=== PATIENT | male | born 1935 | race Caucasian/White ===

== ENCOUNTER 2018-02-11 09:33 | Outpatient (CLI) | payer MEDICARE, OTHER ==
[2018-02-11] MEDS ORDERED: Gadobenate Dimeglumine 529 MG/1 ML (20ML VIAL) ONE (16:14)
== END 2018-02-11 09:34 | disposition home or self-care (01) ==
LOC: BICMRI 09:33
PROVIDERS: ATTEND Psychiatry & Neurology Neurology
DX: G31.1 Senile degeneration of brain, not elsewhere classified (principal)
CPT/HCPCS: 70553; A9579

== ENCOUNTER 2018-05-15 14:34 | Outpatient (CLI) | payer MEDICARE, OTHER | END 2018-05-15 14:35 | disposition home or self-care (01) | LOC: BICRAD 14:34 | PROVIDERS: ATTEND Podiatrist | DX: R22.9 Localized swelling, mass and lump, unspecified (principal); M19.072 Primary osteoarthritis, left ankle and foot ==

== ENCOUNTER 2018-10-08 22:41 | Emergency (ER) | payer MEDICARE, OTHER ==
[2018-10-08] MEDS ORDERED: Bacitracin Zinc 1 Packet ONE (23:53)
== END 2018-10-09 00:49 ==
LOC: ERS 22:41
DX: L97.529 Non-pressure chronic ulcer of other part of left foot with unspecified severity (principal); F03.90 Unspecified dementia, unspecified severity, without behavioral disturbance, psychotic disturbance, mood disturbance, and anxiety; I10 Essential (primary) hypertension; I48.91 Unspecified atrial fibrillation; E78.5 Hyperlipidemia, unspecified; Z79.899 Other long term (current) drug therapy; Z79.01 Long term (current) use of anticoagulants
CPT/HCPCS: 99284

== ENCOUNTER 2018-10-15 15:07 | Inpatient (IN) | payer MEDICARE, OTHER ==
[2018-10-15] MEDS ORDERED: Sodium Chloride 0.9% 100 ML ONE (15:23)
[2018-10-15] MEDS ORDERED: Piperacillin/Tazobactam 4.5 GM VIAL ONE (15:23)
[2018-10-15 15:37] LABS: Hemoglobin 12.8 g/dL (14.0-18.0); Mean Corpuscular HGB CONC 32.2 g/dL (32.0-36.0); Mean Corpuscular Hemoglobin 30.2 pg (27.0-31.0); Mean Corpuscular Volume 93.7 fL (78.0-98.0); Mean Platelet Volume 8.8 fL (7.4-10.4); Platelet Count 176 thou/uL (130-400); RBC Distribution Width 14.4 % (11.5-14.5); Red Blood Cell (RBC) Count 4.24 mill/uL (4.70-6.10); White Blood Cell (WBC) Count 18.4 thou/uL (4.8-10.8)
[2018-10-15 15:38] LABS: INR-International Normal Ratio 3.6
[2018-10-15 15:39] LABS: PTT 51.1 SEC (22.9-36.1)
--- NOTE | 2018-10-15 15:51 | RAD ---
CHEST ONE VIEW: History: Chest pain Comparison: 2012 FINDINGS: Lungs are hypoinflated. There appears to be some peripheral scarring and increased reticular markings in the lung bases. There is scarring in both lung apices. Heart size is mildly enlarged. Chronic elevation of the left hemidiaphragm. IMPRESSION: Chronic findings. Findings concerning for a possible underlying pulmonary fibrosis. POS: [facility]
[2018-10-15 15:52] LABS: ALT (SGPT) 11 U/L (8-55); AST (SGOT) 15 U/L (5-34); Albumin 3.2 g/dL (3.4-4.8); Alkaline Phosphatase 69 U/L (40-150); Anion Gap 18 mmol/L (10-20); BUN (Urea Nitrogen) 27 mg/dL (8.4-25.7); Bilirubin, Total 0.9 mg/dL (0.2-1.2); CK (CPK) 164 U/L (30-200); Calc. Creatinine Clearance 0 mL/min (70-130); Calcium 7.9 mg/dL (7.8-10.44); Carbon Dioxide 22 mmol/L (23-31); Chloride 98 mmol/L (98-107); Estimated GFR-MDRD 47; Globulin 3.3 g/dL (2.4-3.5); Glucose 136 mg/dL (83-110); Lipase 8 U/L (8-78); Potassium 3.9 mmol/L (3.5-5.1); Protein, Total 6.5 g/dL (5.8-8.1); Sodium 134 mmol/L (136-145)
[2018-10-15 15:57] LABS: Bilirubin Negative (Negative); Blood, Urine Trace (Negative); Clarity CLEAR (Clear); Glucose, Urine (Dipstick) Negative (Negative); Leukocyte Negative (Negative); Nitrite Negative (Negative); Protein, Urine (Dipstick) 30 mg/dL (Neg-Trace); Specific Gravity, Urine 1.016 (1.002-1.036); Urobilinogen 0.2 mg/dL (0.2-1.0)
[2018-10-15 15:58] LABS: Band 8 % (5-11); Lymphocytes 1 % (21-51); MDiff Complete? YES; Monocytes 8 % (0-10); Neutrophil 83 % (42-75); PLT Morphology Comment Appears Adequate; Polychromasia SLIGHT = 2-3 cells (100X) (0-2/hpf)
[2018-10-15 16:00] LABS: Bacteria/HPF None Seen HPF (None Seen); Hyaline Casts/LPF 4-6 HYALINE CAST LPF (0-3 Hyaline); Pathc Cast-AUWi Flag 0.58 (0-2.49); Squamous Epithelial 0-3 HPF (0-3); WBC/HPF 0-3 HPF (0-3)
[2018-10-15 16:08] LABS: Amphetamine Not Detected (NotDetected); Barbiturates Screen Not Detected (NotDetected); Benzodiazepine Screen Detected (NotDetected); Cocaine Metabolite Screen Not Detected (NotDetected); Medtox Control Line Valid? VALID (VALID); Medtox Reader # READER 1; Methadone Not Detected (NotDetected); Methamphetamine Not Detected (NotDetected); Opiate Screen Not Detected (NotDetected); Oxycodone Screen Not Detected (NotDetected); Phencyclidine (PCP) Not Detected (NotDetected); THC/Cannabinoid Screen Not Detected (NotDetected); Tricyclic Screen Not Detected (NotDetected)
[2018-10-15 16:08] LABS: Acetaminophen Less than 6.0 mcg/mL (10.0-30.0); Alcohol Less than 10 mg/dL (Less than 10); Salicylate Less than 8.0 mg/dL (15.0-30.0)
--- NOTE | 2018-10-15 17:01 | CT ---
CT HEAD NONCONTRAST: 10/15/2018 HISTORY: Trauma. The patient fell today at the halfway. Injury after fall. COMPARISON: MRI brain on 02/11/2018. FINDINGS: There is a small low density focus in the posterior limb, left internal capsule, also seen on prior M RI, likely related to a tiny remote lacunar infarction. There is no evidence of an acute cortical in farction, hemorrhage, mass effect, or midline shift. There is mild cerebral volume loss. The ventri cular system is normal in size, shape, and position for the degree of sulcal atrophy. There are mucu s retention cysts in the floor of each maxillary antrum. Mucosal thickening is seen in the ethmoid a ir cells bilaterally. The mastoid air cells are clear. There is evidence of scleral banding involvi ng the left globe. No calvarial fracture is seen. IMPRESSION: No acute intracranial abnormality is demonstrated. POS: [facility]
--- NOTE | 2018-10-15 17:03 | ULT ---
LEFT LOWER EXTREMITY VENOUS DUPLEX ULTRASOUND INCLUDING COLOR AND SPECTRAL DOPPLER IMAGING: HISTORY: An 83-year-old male with a history of left leg erythema and redness. TECHNIQUE: Exam performed from groin to ankle, including the visualized greater saphenous vein, common femoral v ein, superficial femoral vein, profunda femoral vein, popliteal vein, trifurcation vein, and posterio r tibial vein regions. FINDINGS: There is phasic flow at all levels with normal compressibility and normal augmentation. The wave-for m is somewhat exaggerated, which is a nonspecific finding but can be seen in fluid overload and heart failure, among other things. IMPRESSION: No evidence for deep venous thrombosis. POS: [facility]
--- NOTE | 2018-10-15 17:04 | RAD ---
LEFT FOOT 3 VIEWS: Date: 10/15/18 HISTORY: Erythema. Foot wound. COMPARISON: Radiograph dated 05/15/18. FINDINGS: There is a large plantar ulcer. This is either a wound or a linear radiopaque object extending from t he mid foot to the skin surface which could be a bandage. Extensive swelling throughout the forefoot. There is mid foot collapse. 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 There is an erosion of the lateral margin of the distal phalanx of the small toe. IMPRESSION: 1. Extrinsic erosion of the distal phalanx of the small toe. This may reflect an underlying mass. MR I with and without contrast recommended. 2. 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 3. Large plantar midfoot wound with faint linear radiopacity projecting from the skin surface to the mid foot bone. This may reflect a radiopaque foreign object versus a bandage. Given the amount of so ft tissue swelling throughout the mid foot and forefoot, underlying cellulitis and possibly deep oste omyelitis is definitely a possibility. MRI recommended. POS: [facility]
--- NOTE | 2018-10-15 17:10 | CT ---
CT CERVICAL SPINE NONCONTRAST: 10/15/2018 HISTORY: Injury after trauma. The patient fell. TECHNIQUE: Contiguous axial CT images are obtained through the cervical spine, from the skull base to the level of the T3 vertebral body. Sagittal and coronal reformatted images are provided. FINDINGS: Multilevel degenerative changes are seen with prominent facet hypertrophic changes at multiple levels . There is moderate bilateral neural foraminal narrowing at the C3-C4 level, as well as moderate lef t-sided neural foraminal narrowing at the C4-C5 level. There is mild bone encroachment on the centra l spinal canal, at the C4-C5 level. No fracture or subluxation is seen. There is mild narrowing of the intervertebral disk space at all levels of the cervical spine. Calcification of the anterior longitudinal ligament is seen at multipl e levels. Prevertebral soft tissues are within normal limits. Vascular calcifications are seen in the carotid arteries, as well as in the visualized aortic arch. The thyroid gland is slightly heterogeneous in appearance, but there is artifact seen through this re gion. A tiny nodule in the inferior left lobe of the thyroid gland cannot be entirely excluded, but no discrete nodule is present on the CT of the neck from 06/28/2017, which was obtained post contrast . There is atelectasis in the upper lung zones. IMPRESSION: 1. Degenerative changes of the cervical spine without fracture or subluxation appreciated. 2. Heterogeneity of each lobe of the thyroid gland with a questionable small nodule in the inferior pole left lobe of the thyroid gland. 3. Ground glass densities in the upper lung zones, but this exam was obtained in expiratory phase of imaging, and findings are probably related to atelectasis. 4. Gas within vein in a supraclavicular location, which is probably attributable to placement of a p eripheral intravenous catheter. POS: [facility]
[2018-10-15] MEDS ORDERED: VANCOMYCIN/ RENALLY ADJUST ANTIBIOTICS IVPB PRN (18:11)
[2018-10-15] MEDS ORDERED: Acetaminophen 650 MG Suppository PR PRN (18:12)
[2018-10-15] MEDS ORDERED: Acetaminophen 325 MG TAB PO PRN (18:12)
[2018-10-15] MEDS ORDERED: Senokot S 8.6-50 MG TAB PO PRN (18:12)
[2018-10-15] MEDS ORDERED: Norepinephrine 8 MG/0.9% NS 250 ML IVPB PRN (19:51)
[2018-10-15] MEDS ORDERED: CCU Electrolyte Replacement 1 EACH IVPB SCH (19:51)
--- NOTE | 2018-10-15 20:14 | HP ---
PRIMARY CARE PROVIDER: Dr. Palmer Montanez. VACUUM FORM OPERATOR: Dr. Quintero. CHIEF COMPLAINT: Fall. HISTORY OF PRESENT ILLNESS: Mr. Peterson is a pleasant 83-year-old gentleman, who was seen at [facility] on October 15, 2018. He has a history of chronic ulcer on the plantar aspect of the left foot. He reports that it improves at times and worsens at other times. Two weeks ago, he had a procedure done on his veins on the left lower extremity. One week ago, he was sent to the emergency room because the visiting nurse thought that his foot did not appear to be normal. He was discharged from the emergency room. Since then, it appears that he has had progressively worsening edema of the left foot. He also reports that it has become erythematous. He denies any pain. He also reports numbness in the left foot. He was found to be febrile last night. Today morning, he reports feeling dizzy when he woke up. He reports falling twice. He reports head trauma. He denies any nausea, vomiting, diarrhea, or abdominal pain. He denies any chest pain. REVIEW OF SYSTEMS: All other systems reviewed and found to be negative. PAST MEDICAL HISTORY: Essential hypertension, dyslipidemia, bradycardia, incontinence, atrial fibrillation, peripheral neuropathy, and dementia. SURGICAL HISTORY: Appendectomy and right foot surgery. SOCIAL HISTORY: The patient denies tobacco use, alcohol use, or recreational drug use. He lives at [facility]. He ambulates with a walker. CODE STATUS: I discussed his code status. He is chemical code only. FAMILY HISTORY: Myocardial infarction in his mother. ALLERGIES: NO KNOWN DRUG ALLERGIES. CURRENT MEDICATIONS: 1. Amiodarone 200 mg daily. 2. Benazepril 40 mg daily. 3. Pantoprazole 40 mg daily. 4. Tamsulosin 0.4 mg daily. 5. Torsemide 10 mg daily. 6. Rivaroxaban 20 mg daily. 7. Vitamin D3 1000 units daily. 8. Vitamin C 500 mg daily. PHYSICAL EXAMINATION: GENERAL: Mr. Peterson is awake and alert, not in acute distress. VITAL SIGNS: Blood pressure is 98/65, pulse 83, respiratory rate 21, and oxygen saturation 94% on room air. He had a pulse of 120 when he presented to the emergency room. EYES: No scleral icterus. No conjunctival pallor. ENT: Moist mucosal membranes. No oropharyngeal erythema or exudates. NECK: Supple, nontender, trachea is midline. RESPIRATORY: Accessory muscles of breathing are not active. Chest wall movements are symmetric bilaterally. LUNGS: Clear to auscultation, without wheeze, rhonchi, or crepitations. CARDIOVASCULAR: S1 and S2 are heard, regular. Peripheral pulses palpable. No carotid bruit. No pericardial rub. ABDOMEN: Soft, nontender, bowel sounds heard. No hepatomegaly. No splenomegaly. NEUROLOGIC: Cranial nerves 2 through 12 intact. MUSCULOSKELETAL: Power is 5/5 in all four extremities. SKIN: Left foot is swollen, erythematous, and nontender. He has ulcer over the plantar aspect of the left foot. LYMPHATIC: No cervical lymphadenopathy. PSYCHIATRIC: Normal mood. Normal affect. The patient is oriented to person and place, not to time. DIAGNOSTIC STUDIES: Mr. Peterson's labs and investigations were reviewed. I reviewed his chest x-ray, which does not show any pulmonary infiltrates. Cervical spine CT shows degenerative changes of the cervical spine without fracture or subluxation. He has heterogeneity of each lobe of the thyroid gland with a questionable small nodule in the inferior left pole of the thyroid gland. He has ground glass densities in the upper lung zones. He has gas within the vascular structures in the supraclavicular location, which is probably attributable to placement of a peripheral intravenous catheter. X-rays of the left foot show extrinsic erosion of the distal phalanx of the small toe. This may reflect an underlying mass. Radiologist recommends MRI with and without contrast. He has severe midfoot collapse and osteonecrosis of the lateral navicular. He has large plantar midfoot wound with faint linear radiopacity projecting from the skin surface to the midfoot bone. This may reflect a radiopaque foreign object versus bandage. Underlying cellulitis and possibly deep osteomyelitis are a possibility. Radiologist recommends MRI. Left lower extremity venous Dopplers did not show any evidence for DVT. I also reviewed his EKG, which shows atrial fibrillation with rapid ventricular response. No ST changes to suggest an acute coronary syndrome. He also has an electrocardiogram, which showed supraventricular tachycardia. He has leukocytosis with 18,400 white cells, of which 83% are neutrophils, normocytic anemia with hemoglobin 12.8, normal platelet count. INR 3.6. Decreased sodium of 134, normal potassium, elevated blood urea nitrogen of 27, elevated creatinine of 1.42, last known creatinine 1.22 on April 07, 2018, elevated lactic acid level of 4, decreased albumin of 3.2, otherwise unremarkable liver profile, indeterminate troponin I of 0.040, urinalysis that is negative for nitrite and leukocyte esterase, and urine drug screen positive for benzodiazepines. ASSESSMENT AND PLAN: Mr. Peterson is a pleasant 83-year-old gentleman who was seen at [facility] on October 15, 2018. His problem list includes: 1. Sepsis: Mr. Peterson is presenting with sepsis, most likely source of infection in the left foot. He will be admitted to the hospital for further management. He has received vancomycin and Zosyn, which I will continue. We will consult Infectious Disease Service. Given his decreased renal function, we will obtain MRI when creatinine improves. 2. Supraventricular tachycardia: Mr. Peterson has been having runs of supraventricular tachycardia. Cardiology Service was called by emergency room physician and discussed the case. He has episodes of hypotension following runs of supraventricular tachycardia. If hypotension continues, he may need central line and vasopressors in the critical care unit. Cardiology Service will be consulted. 3. Hypertension: The patient is currently hypotensive. We will hold antihypertensives for now. 4. Atrial fibrillation: We will continue rivaroxaban. Many thanks for allowing me to participate in your patient's care. Please feel free to contact me with any questions or concerns. LEVEL OF RISK: High. LEVEL OF COMPLEXITY: High. Job ID: [id number]
[2018-10-15] MEDS ORDERED: Potassium Chloride 40 MEQ in Sodium Chloride 0.9% 250 ML 250 ML IVPB PRN (20:18)
[2018-10-15] MEDS ORDERED: CCU ELECTROLYTE REPLACEMENT PROTOCOL FS PRN (20:18)
[2018-10-15] MEDS ORDERED: Potassium Chloride 40 MEQ in Premix Bag 1 BAG IVPB PRN (20:18)
[2018-10-15] MEDS ORDERED: Potassium Chloride 20 MEQ TAB PO PRN (20:18)
[2018-10-15] MEDS ORDERED: Potassium Phosphate 12 MMOL in Sodium Chloride 0.9% 250 ML 250 ML IV PRN (20:18)
[2018-10-15] MEDS ORDERED: Magnesium 2 GM/NS 0.9% 100 ML 2 GM in Premix Bag 1 BAG IVPB PRN (20:18)
[2018-10-15] MEDS ORDERED: Magnesium Oxide 400 MG TAB PO PRN ×2 (20:18)
[2018-10-15] MEDS ORDERED: Potassium Phosphate 15 MMOL in Sodium Chloride 0.9% 250 ML 250 ML IV PRN (20:18)
[2018-10-15] MEDS ORDERED: Potassium Phosphate 9 MMOL in Sodium Chloride 0.9% 100 ML IVPB PRN (20:18)
[2018-10-15 20:47] LABS: Lactic Acid 1.4 mmol/L (0.5-2.2)
[2018-10-15 21:14] LABS: CKMB 2.6 ng/mL (0-6.6)
--- NOTE | 2018-10-15 21:39 | RAD ---
PORTABLE CHEST: 10/15/18 PROVIDED CLINICAL HISTORY: Line placement. FINDINGS: Comparison is made with the examination performed earlier same date. Significant interval change with respect to the prior examination is not apparent. IMPRESSION: As above. POS: [facility]
[2018-10-15] MEDS: Sodium Chloride 0.9% 1,000 ML IV SCH (23:07)
[2018-10-16] MEDS: Piperacillin/Tazobactam 3.375 GM in Sodium Chloride 0.9% 100 ML IVPB SCH ×4 (00:15→17:43)
[2018-10-16] MEDS: Vancomycin HCl 750 MG in Sodium Chloride 0.9% 250 ML 250 ML IVPB SCH ×2 (04:36→15:45)
[2018-10-16 04:54] LABS: #Lymphocytes 0.6 thou/uL (1.20-3.40); #Neutrophils 13.9 thou/uL (1.40-6.50); %Eosinophils 0.2 % (0.0-10.0); %Lymphocytes 3.8 % (21.0-51.0); %Monocytes 6.3 % (0.0-10.0); %Neutrophils 89.7 % (42.0-75.0); Hemoglobin 11.2 g/dL (14.0-18.0); Mean Corpuscular HGB CONC 32.6 g/dL (32.0-36.0); Mean Corpuscular Hemoglobin 30.9 pg (27.0-31.0); Mean Corpuscular Volume 94.6 fL (78.0-98.0); Mean Platelet Volume 8.8 fL (7.4-10.4); Platelet Count 158 thou/uL (130-400); RBC Distribution Width 14.3 % (11.5-14.5); Red Blood Cell (RBC) Count 3.62 mill/uL (4.70-6.10); White Blood Cell (WBC) Count 15.4 thou/uL (4.8-10.8)
[2018-10-16 05:14] LABS: Anion Gap 14 mmol/L (10-20); BUN (Urea Nitrogen) 22 mg/dL (8.4-25.7); Calc. Creatinine Clearance 64 mL/min (70-130); Carbon Dioxide 24 mmol/L (23-31); Chloride 105 mmol/L (98-107); Estimated GFR-MDRD 66; Glucose 97 mg/dL (83-110); Potassium 3.6 mmol/L (3.5-5.1); Sodium 139 mmol/L (136-145)
[2018-10-16] MEDS ORDERED: Prevnar 13-Val Conj/PF 0.5 ML SYRINGE IM ONE (09:00)
[2018-10-16] MEDS: Sodium Chloride 0.9% 1,000 ML IV SCH ×2 (09:03→23:55)
[2018-10-16] MEDS: Amiodarone 200 MG TAB PO SCH (10:04)
[2018-10-16 13:02] LABS: INR-International Normal Ratio 2.4; Prothrombin Time 26.4 SEC (12.0-14.7)
--- NOTE | 2018-10-16 13:13 | CON ---
DATE OF CONSULTATION: 10/16/2018 TYPE OF CONSULTATION: Cardiology. REASON FOR CONSULTATION: Supraventricular tachycardia. HISTORY OF PRESENT ILLNESS: Mr. Dileep Peterson is a delightful 83-year-old gentleman, who has a long history of atrial arrhythmias. The patient has had atrial flutter in the past as well as paroxysmal atrial fibrillation. On this occasion, he was admitted for ulceration of the left foot and possible sepsis. It has been noted that it first become erythematous. He has been feeling lightheaded. REVIEW OF SYSTEMS: CONSTITUTIONAL: Positive for weakness and fatigue. VISION: No changes. HEARING: No changes. PULMONARY: No cough or wheezing. CARDIAC: No chest pain or pressure. GASTROINTESTINAL: No nausea, vomiting, diarrhea. SKIN: No rashes. PAST MEDICAL HISTORY: 1. Hypertension. 2. Atrial fibrillation. 3. Atrial flutter. SURGICAL HISTORY: Appendectomy and right foot surgery. SOCIAL HISTORY: Denies alcohol use. Lives at [facility]. CODE STATUS: Chemical code only. FAMILY HISTORY: Myocardial infarction in mother. MEDICATIONS: Prior to admission, 1. Amiodarone 200 mg a day. 2. Xarelto 20 mg. 3. Torsemide 10 mg a day. 4. Tamsulosin 0.4 mg a day. PHYSICAL EXAMINATION: GENERAL: This is a delightful elderly gentleman, in no distress. VITAL SIGNS: Blood pressure 103/60, pulse 75, it is regular currently. HEENT: Eyes, sclerae nonicteric. Mouth mucous membranes moist. NECK: Supple. No lymphadenopathy. LUNGS: Clear. No wheezing, rales, or rhonchi. CARDIAC: Normal S1, normal S2. There is no murmur, rub, or gallop. ABDOMEN: Obese, nontender. EXTREMITIES: No clubbing or cyanosis. Moderate edema on the right foot, warm on the right. On the left, there is a chronic ulceration with erythematous changes and I do not feel pulses on the left side. DIAGNOSTIC STUDIES: Reviewing the EKG, it did have what looked like atrial flutter initially, now it looks like it is probably a junctional rhythm or intermittent sinus rhythm with intermittent atrial fibrillation. ASSESSMENT: 1. Paroxysmal atrial arrhythmias including what appears to be atrial flutter. Electrophysiology was previously consulted. They recommended medical therapy. 2. It looks like vascular ischemic problems of the left foot resulting in ulceration. PLAN: 1. Surgery is being consulted. 2. Continue amiodarone. 3. We will actually hold Xarelto for now. No decision is made about whether he is going to need surgical therapy in his foot. Job ID: [id number]
--- NOTE | 2018-10-16 13:45 | PDOC.PN ---
- Subjective Encounter Start Date: 10/16/18 Encounter Start Time: 09:40 Pt seen for followup re: sepsis. Denies chest pain, shortness of breath, fevers or chills. - Objective Resuscitation Status - Order Detail: 10/15/18 18:12 Resuscitation Status Routine Resuscitation Status: PRTL: Chem only Discussed with: patient and [id number] MAR Reviewed: Yes Vital Signs & Weight: Vital Signs (12 hours) Temp Pulse Ox 10/16/18 12:00 97.6 F 10/16/18 07:54 99 10/16/18 07:00 97.9 F 10/16/18 04:00 97.9 F Weight Weight 194 lb 14.218 oz Most Recent Monitor Data Heart Rate from ECG 71 NIBP 137/69 NIBP BP-Mean 91 Respiration from ECG 28 SpO2 98 I&O: 10/15/18 10/16/18 10/17/18 06:59 06:59 06:59 Intake Total 634 240 Output Total 375 375 Balance 259 -135 Result Diagrams: 10/16/18 04:15 10/16/18 04:15 EKG Reviewed by me: Yes (Tele: NSR) Phys Exam - Physical Examination Constitutional: NAD HEENT: moist MMs, sclera anicteric, oral pharynx no lesions, 2+ tonsils Neck: no nodes, no JVD, supple, full ROM Respiratory: no wheezing, no rales, no rhonchi, clear to auscultation bilateral Cardiovascular: RRR, no rub S1, S2 Gastrointestinal: soft, non-tender, no distention, positive bowel sounds Neurological: moves all 4 limbs Psychiatric: normal affect, A&O x 3 Deviation from normal: L leg swelling, erythema, plantar ulcer Dx/Plan (1) Sepsis Code(s): A41.9 - SEPSIS, UNSPECIFIED ORGANISM Status: Acute Comment: continue IV antibiotics as below (2) Foot infection Code(s): L08.9 - LOCAL INFECTION OF THE SKIN AND SUBCUTANEOUS TISSUE, UNSP Status: Acute Comment: check MRI left foot, continue IV antibiotics (3) Atrial fibrillation Code(s): I48.91 - UNSPECIFIED ATRIAL FIBRILLATION Status: Chronic Comment: anticoagulation on hold - Plan * . Review of Systems - Review of Systems Constitutional: negative: fever, chills, sweats, weakness, malaise Respiratory: negative: Cough, Shortness of Breath, SOB with Excertion, Pleuritic Pain, Wheezing Cardiovascular: negative: chest pain, palpitations, orthopnea, paroxysmal nocturnal dyspnea, edema, light headedness Gastrointestinal: negative: Nausea, Vomiting, Abdominal Pain, Diarrhea, Constipation, Melena, Hematochezia Genitourinary: negative: Dysuria, Frequency, Incontinence, Hematuria, Retention Skin: negative: Rash, Lesions, Bay, Bruising - Medications/Allergies Allergies/Adverse Reactions: Allergies Allergy/AdvReac Type Severity Reaction Status Date / Time No Known Allergies Allergy Verified 12/23/14 12:28 Medications: Current Medications Acetaminophen (Tylenol) 650 mg PO Q4H PRN PRN Reason: Headache/Fever/Mild Pain (1-3) Acetaminophen (Tylenol) 650 mg NH Q4H PRN PRN Reason: Headache/Fever/Mild Pain (1-3) Amiodarone HCl (Cordarone) 200 mg PO DAILY [facility] Last Admin: 10/16/18 10:04 Dose: 200 mg Vancomycin HCl 750 mg/ Sodium (Chloride) 250 mls @ 250 mls/hr IVPB 0400,1600 [facility] Last Admin: 10/16/18 04:36 Dose: 250 mls Piperacillin Sod/Tazobactam (Sod 3.375 gm/ Sodium Chloride) 100 mls @ 200 mls/ hr IVPB Q6HR [facility] Last Admin: 10/16/18 12:29 Dose: 100 mls Sodium Chloride (Normal Saline 0.9%) 1,000 mls @ 70 mls/hr IV .[id number] [facility] Last Admin: 10/16/18 09:03 Dose: 1,000 mls Norepinephrine Bitartrate (Levophed) 250 mls @ 0 mls/hr IVPB PRN PRN; Protocol PRN Reason: To maintain MAP > 65 Potassium Chloride 40 meq/ (Sodium Chloride) 270 mls @ 135 mls/hr IVPB ASDIR PRN PRN Reason: FOR SERUM K+ 2.5 - 3.5 Potassium Chloride 40 meq/ (Device) 100 mls @ 50 mls/hr IVPB ASDIR PRN PRN Reason: FOR SERUM K+ 2.5 - 3.5 Magnesium Sulfate 1 gm/ Sodium (Chloride) 102 mls @ 102 mls/hr IV PRN PRN PRN Reason: MAG LEVEL 1.4 - 2.0 Magnesium Sulfate 2 gm/ Device 100 mls @ 100 mls/hr IVPB ASDIR PRN PRN Reason: MAGNESIUM < 1.4 Potassium Phosphate 9 mmol/ (Sodium Chloride) 103 mls @ 25.75 mls/hr IVPB ASDIR PRN PRN Reason: Phosphate 1.0-1.8 Potassium Phosphate 12 mmol/ (Sodium Chloride) 254 mls @ 63.5 mls/hr IV ASDIR PRN PRN Reason: Serum phosphate 0.5-0.9 Potassium Phosphate 15 mmol/ (Sodium Chloride) 255 mls @ 63.75 mls/hr IV ASDIR PRN PRN Reason: Serum Phos < 0.5 Magnesium Oxide (Magnesium Oxide) 400 mg PO BIDPRN PRN PRN Reason: FOR SERUM MAG 1.4 - 2.0 Magnesium Oxide (Magnesium Oxide) 800 mg PO PRN PRN PRN Reason: FOR SERUM MAG < 1.4 Miscellaneous Medication (Pharmacy To Dose) 1 each IVPB PRN PRN PRN Reason: Pharmacy to dose Miscellaneous Medication (Ccu Electrolyte Replacement) 1 each IVPB ONE [facility] Stop: 11/14/18 19:52 Miscellaneous Medication (Phos-Nak) 1 pkt PO TIDPRN PRN PRN Reason: FOR PHOS LEVEL 1.0 - 1.8 Miscellaneous Medication (Phos-Nak) 2 pkt PO TIDPRN PRN PRN Reason: FOR PHOS LEVEL 0.5 - 1.0 Ccu Electrolyte (Replacement Protocol) 0 each FS PRN PRN PRN Reason: FOR ELECTROLYTE REPLACEMENT Potassium Chloride (K-Dur) 40 meq PO ASDIR PRN PRN Reason: FOR SERUM K+ 2.5 - 3.5 Potassium Chloride (Klor-Con) 40 meq PER TUBE ASDIR PRN PRN Reason: FOR SERUM K+ 2.5-3.5 Senna/Docusate Sodium (Senokot S) 2 tab PO BID PRN PRN Reason: Constipation Sodium Chloride (Flush - Normal Saline) 10 ml IVF Q12HR [facility] Last Admin: 10/16/18 09:03 Dose: 10 ml Sodium Chloride (Flush - Normal Saline) 10 ml IVF PRN PRN PRN Reason: Saline Flush Last Admin: 10/16/18 09:03 Dose: 10 ml
--- NOTE | 2018-10-16 14:03 | MRI ---
MRI LEFT FOOT WITH AND WITHOUT CONTRAST: HISTORY: Pain. Swelling. Evaluate for osteomyelitis. COMPARISON: Foot radiographs from the prior day. FINDINGS: On the T1 imaging weighted sequence, there is some subcortical and medullary signal loss of the fifth toe metatarsal base, as well as the lateral cuneiform. There are severe mid foot degenerative stroud es with mid foot collapse. SOFT TISSUES: There is a large mid foot plantar wound with a peripherally enhancing collection abutt ing the lateral cuneiform, as well as the fifth metatarsal base. This collection does extend deep to the plantar fascia and superficial to the fascia. This collection measures 6.6 x 1.3 x 3 cm (trans x AP x CC). There is severe muscle atrophy. There is some pyomyositis of the abductor digiti minimi muscle. IMPRESSION: 1. Osteomyelitis of the fifth metatarsal base, as well as of the lateral cuneiform. 2. Large plantar midfoot ulcer with peripherally enhancing abscess, extending superficial and deep t o the plantar fascia, abutting the lateral cuneiform and fifth metatarsal base. Size as above. 3. Pyomyositis of the abductor digiti minimi muscle. 4. Severe mid foot degenerative changes, suggesting chronic diabetic Charcot neuropathy. POS: [facility]
--- NOTE | 2018-10-16 16:04 | HP ---
HISTORY OF PRESENT ILLNESS: Dileep Peterson is an 83-year-old male patient, admitted to the hospital yesterday. This patient has been admitted to the Hospitalist Service. He is a resident of [facility] and ambulates with a walker with assistance. He has had problems with neuropathy, although not a diabetic. He has been seen by someone regarding some right foot problems. He has had venous interventions procedure done on his left leg in the last week. The patient was admitted this hospitalization after presenting in the emergency room. He is on Xarelto, last dose on 10/15/2018. As stated above, he is on Xarelto. Yesterday, his PT was 36. Today, 26. Yesterday, his INR was 3.6. Today, 2.4. Dr. Mishra asked me to see him, concerned about the patient's foot. 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 He underwent subsequent MRI scan, revealing osteomyelitis of the fifth metatarsal base as well as the lateral cuneiform, lateral plantar midfoot ulcer with peripherally enhancing abscess, extending deep to the plantar fascia involving the lateral cuneiform and fifth metatarsal plantar fasciitis, abductor digiti minimi, severe midfoot degenerative changes consistent with Charcot foot. The patient has severe edema, cellulitis, extending up to his lower ankle. There is a large abscess in the plantar foot with necrotic tissue, purulent material. ALLERGIES: NONE. SOCIAL HISTORY: Tobacco, none. Alcohol, none. MEDICATIONS: On vancomycin and Zosyn as an inpatient. Outpatient, Flomax 0.4 mg a day, vitamin D3 daily, amiodarone 200 mg a day, benazepril 40 mg in the morning, vitamin C daily, Protonix 40 mg a day, torsemide 10 mg a day, Xarelto 20 mg a day, Cipro 250 mg p.o. t.i.d. prior to admission. PAST SURGICAL HISTORY: Appendectomy, right foot surgery, and venous interventions procedure recently a week ago. PAST MEDICAL HISTORY: Hypertension, dyslipidemia, bradycardia, incontinence; atrial fibrillation, on Xarelto; peripheral neuropathy, mild dementia. SPINNING SUPERVISOR: Dr. Quintero, who saw him today. PHYSICAL EXAMINATION: VITAL SIGNS: Height 6 feet tall, weight 194 pounds, BMI 26. Blood pressure 137/89, respiratory rate 23, and heart rate 71. HEAD, EARS, EYES, NOSE, AND THROAT: Unremarkable. LUNGS: Clear to auscultation. CARDIAC: Regular rhythm. ABDOMEN: Soft and nontender. Palpable femoral popliteal pulses. EXTREMITIES: The patient has severe edema, cellulitis of the left foot extending to the ankle. There is necrotic tissue with a purulent process, plantar foot extending from medial to lateral. This is extensive and extends deep on probing with a Q-tip and extends to the metatarsals. ASSESSMENT AND PLAN: 1. Severe infection, right foot in a nondiabetic. He has history of neuropathy and Charcot foot, evident by x-rays and MRI. I have talked to the family, would recommend emergent guillotine amputation above the ankle. This foot is not salvageable. He will need formal below-knee amputation next week. Risks and benefits of the procedure were explained, they consented. 2. On Xarelto, held since yesterday. Ideally, we would like to wait until surgery tomorrow, but his aggressive infection presents as a prohibitive risk. 3. History of atrial fibrillation/atrial flutter. 4. Dementia. 5. Arthritis. Job ID: [id number]
[2018-10-16] MEDS ORDERED: Dexamethasone 20 MG/5 ML VIAL ONE (16:54)
[2018-10-16] MEDS ORDERED: Ondansetron PF 4 MG/2 ML Vial ONE (16:54)
[2018-10-16] MEDS ORDERED: PROPOFOL 200 MG/20 ML VIAL ONE (16:54)
[2018-10-16] MEDS ORDERED: Fentanyl 100 MCG/2 ML VIAL ONE (20:38)
[2018-10-16] MEDS ORDERED: traMADol HCl 50 MG TAB PO PRN (20:44)
[2018-10-16] MEDS ORDERED: Acetaminophen 500 MG TAB PO PRN (20:44)
[2018-10-16] MEDS ORDERED: Ondansetron HCl/PF 4 MG/2 ML Vial IVP PRN (21:15)
[2018-10-16] MEDS ORDERED: Promethazine HCl 25 MG/ML VIAL IM PRN (21:15)
[2018-10-16] MEDS ORDERED: Promethazine HCl 25 MG/ML VIAL SLOW IVP PRN (21:15)
--- NOTE | 2018-10-17 00:17 | CON ---
DATE OF CONSULTATION: 10/16/2018 REASON FOR CONSULTATION: Foot inflammatory process, left side. HISTORY OF PRESENT ILLNESS: An 83-year-old patient, history of hypertension, atrial fibrillation, and dementia, who has chronic lymphedema, also has neuropathy left side with Charcot arthropathy, left ankle. The patient apparently underwent laser vein ablation recently at least that is what he remembers, but most likely this current process is unrelated to that. He has developed this area of inflammatory change with necrosis of the mid foot plantar aspect and was admitted for management. MRI shows osteomyelitis with fluid collection and osteomyelitis of the 5th metatarsal cuneiform. He does not appear to be in acute distress. He denies headaches. No visual symptoms, sore throat, odynophagia, dysphagia. No cough or sputum production. No chest pain. No dyspnea. No abdominal pain. He is urinating with Kaur catheter. PAST MEDICAL HISTORY: Includes hypertension, dyslipidemia, bradycardia, incontinence, atrial fibrillation, neuropathy with Charcot arthropathy of left ankle, dementia. 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 FAMILY HISTORY: Coronary artery disease. ALLERGIES: NONE. CURRENT MEDICATIONS: 1. Tylenol. 2. Cordarone. 3. Magnesium. 4. Zosyn. 5. Vancomycin. PHYSICAL EXAMINATION: VITAL SIGNS: Temperature max 98.6, blood pressure 140/70, heart rate 66, O2 saturation 100. SKIN: Shows necrotic plantar area left side with inflammatory changes surrounding the necrotic area. It is more towards the lateral aspect and wraps around the mid foot region. There is swelling and associated erythema. There is blistering with purulent secretions under this blisters in the plantar surface. He has peripheral IV access. HEENT: No lymphadenopathy. Ocular movements conjugate. Oral cavity is not remarkable. NECK: Supple. LUNGS: Symmetric. Clear breath sounds. HEART: S1 and S2. Regular rate. No S3 or S4. ABDOMEN: Soft, not distended or tender. : No genital abnormalities except for Kaur catheter. EXTREMITIES: Pulses are 1+ in dorsalis pedis. Cap refill is normal and Charcot ankle deformity. LABORATORY DATA: White cell count was 18.4 and now is at 15, hemoglobin 12, platelets 176, 83% neutrophils. Sodium 139, creatinine 1.07, lactic acid 4.0 and now 1.4, bilirubin 0.9, AST 15, ALT 11, alkaline phosphatase 69, albumin 3.2. INR is 2.4. IMAGING STUDIES: His imaging studies include the MRI of the extremity with osteomyelitis, 5th metatarsal base and lateral cuneiform, large midfoot ulcer with peripherally enhancing abscess, pyomyositis of the small toe muscles. ASSESSMENT: 1. Hypertension. 2. Dementia. 3. Atrial fibrillation. 4. Neuropathy, which is not related to diabetes mellitus, probably related to lumbosacral spine disease with Charcot arthropathy and necrotizing infection mid foot on the left side. A surgical consultation has been obtained, most likely will require aggressive management with amputation, possible that he might be eligible for more conservative management with resection of the 5th metatarsal wound debridement. Healing of this process would be very delayed. I am not sure that it would be in his best interest, so probably will end up with a left BKA. Waiting on the culture results and then determine the extent of the surgery. If more aggressive radical procedures performed, then short-term antimicrobial administration as long as the blood cultures remain negative. Job ID: [id number]
[2018-10-17] MEDS: traMADol HCl 50 MG TAB PO PRN ×2 (00:40→22:38)
[2018-10-17] MEDS: Piperacillin/Tazobactam 3.375 GM in Sodium Chloride 0.9% 100 ML IVPB SCH ×5 (00:41→23:34)
--- NOTE | 2018-10-17 01:59 | CON ---
DATE OF CONSULTATION: HISTORY OF PRESENT ILLNESS: Mr. Peterson is an 83-year-old male who was admitted with lower extremity erythema and left foot swelling. He has been dealing with an ulceration on the bottom of his foot for many months. PAST MEDICAL HISTORY: Remarkable for hypertension, atrial fibrillation, and atrial flutter. He has had an appendectomy in the past and minor surgery on left foot. His son tells me it heals up and then comes back, and heals up and comes back, although when I showed it to him, he said it has never been this bad. FAMILY HISTORY: Positive for vascular disease. MEDICATIONS: Prior to admission, he was on, 1. Xarelto. 2. Amiodarone. 3. Torsemide. 4. Flomax. PHYSICAL EXAMINATION: GENERAL: He is very pleasant gentleman, in no distress. 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 VITAL SIGNS: His blood pressure is 140/82, heart rate is 68, respiratory rate is 20. HEENT: Pupils are equal. Sclerae are anicteric. NECK: Supple. LUNGS: Clear. HEART: Regular rhythm. S1 and S2 are normal. ABDOMEN: Soft and nontender. EXTREMITIES: Without clubbing, cyanosis, or edema. He does have chronic stasis changes over his left lower extremity below the knee and significant erythema of the foot. He has a very large fluctuant area on the plantar aspect of his left foot. His uvicghxw-iv-tcy took a picture of this and showed it to Mr. Petreson because he did not believe his foot was that bad and once he saw that he said that is different. ASSESSMENT AND PLAN: General Surgery is being consulted. It is anticipated he may actually lose his left lower extremity, although at what level I am not sure. I tried to answer all of his questions. TIME SPENT: This was a 70-minute consult, 50% of the time was spent on the unit coordinating care. Job ID: [id number]
--- NOTE | 2018-10-17 03:47 | OP ---
DATE OF PROCEDURE: 10/16/2018 PREOPERATIVE DIAGNOSES: Severe necrotizing infection of left foot with Charcot's joint and osteomyelitis. POSTOPERATIVE DIAGNOSES: Severe necrotizing infection of left foot with Charcot's joint and osteomyelitis. PROCEDURE PERFORMED: Guillotine amputation, left foot, just above the ankle. ANESTHESIA: General. FINDINGS: Extensive infection and soft-tissue destruction, left foot. DESCRIPTION OF PROCEDURE: The patient was taken to the operating room. Under general anesthesia, the left lower extremity was prepared with ChloraPrep and draped in routine fashion. Guillotine amputation of the left foot above the ankle performed by making a circular incision with a knife to the bone, transecting the bones with the Gigli saw, gaining hemostasis with cautery and ligating vascular pedicles with 2-0 silk ties. Surgicel gauze dressing applied. Sterile dressings applied. The patient tolerated the procedure well. Job ID: [id number]
[2018-10-17] MEDS: Vancomycin HCl 750 MG in Sodium Chloride 0.9% 250 ML 250 ML IVPB SCH (04:11)
[2018-10-17 04:30] LABS: #Lymphocytes 0.5 thou/uL (1.20-3.40); #Monocytes 0.2 thou/uL (0.11-0.59); #Neutrophils 9.5 thou/uL (1.40-6.50); %Eosinophils 0.1 % (0.0-10.0); %Lymphocytes 4.8 % (21.0-51.0); %Monocytes 1.6 % (0.0-10.0); %Neutrophils 93.5 % (42.0-75.0); Hemoglobin 10.9 g/dL (14.0-18.0); Mean Corpuscular HGB CONC 32.5 g/dL (32.0-36.0); Mean Corpuscular Hemoglobin 30.9 pg (27.0-31.0); Mean Corpuscular Volume 95.2 fL (78.0-98.0); Mean Platelet Volume 8.7 fL (7.4-10.4); Platelet Count 165 thou/uL (130-400); RBC Distribution Width 14.2 % (11.5-14.5); Red Blood Cell (RBC) Count 3.53 mill/uL (4.70-6.10); White Blood Cell (WBC) Count 10.2 thou/uL (4.8-10.8)
[2018-10-17 04:39] LABS: INR-International Normal Ratio 1.7; Prothrombin Time 19.8 SEC (12.0-14.7)
[2018-10-17 04:49] LABS: Vancomycin, Trough 8.8 ug/mL
[2018-10-17 04:51] LABS: Anion Gap 10 mmol/L (10-20); BUN (Urea Nitrogen) 18 mg/dL (8.4-25.7); Calc. Creatinine Clearance 74 mL/min (70-130); Calcium 7.8 mg/dL (7.8-10.44); Carbon Dioxide 24 mmol/L (23-31); Chloride 106 mmol/L (98-107); Estimated GFR-MDRD 77; Glucose 117 mg/dL (83-110); Potassium 3.9 mmol/L (3.5-5.1); Sodium 136 mmol/L (136-145)
[2018-10-17] MEDS ORDERED: Vancomycin HCl 750 MG in Sodium Chloride 0.9% 250 ML 250 ML IVPB SCH (05:30)
[2018-10-17] MEDS: Amiodarone 200 MG TAB PO SCH (09:28)
[2018-10-17] MEDS: Sodium Chloride 0.9% 1,000 ML IV SCH ×2 (09:29→23:38)
[2018-10-17] MEDS: Polyethylene Glycol 3350 17 GM Packet PO SCH (09:30)
--- NOTE | 2018-10-17 10:05 | PRG ---
DATE OF SERVICE: 10/17/2018 SUBJECTIVE: Mr. Peterson is resting comfortably. He had successful amputation of the left foot yesterday. He has no chest pain or pressure. OBJECTIVE: VITAL SIGNS: Blood pressure is 122/74, and pulse is 60 and sinus rhythm. LUNGS: Clear. CARDIAC: Normal S1, normal S2. ABDOMEN: Soft and nontender. EXTREMITIES: There is very mild edema on the right. The left side is status post amputation of the left foot. There is a dressing in place. ASSESSMENT: 1. Paroxysmal atrial fibrillation, now in sinus rhythm. 2. Status post amputation of the left foot yesterday. PLAN: 1. He is on amiodarone 200 mg a day. 2. Resume Xarelto 20 mg a day starting tomorrow. 3. We will sign off. My partners will be available in the next few days if needed. Please consult if needed. It is okay to me if they move to surgical floor. Job ID: [id number]
[2018-10-17] MEDS ORDERED: Torsemide 10 MG TAB PO SCH (10:15)
[2018-10-17] MEDS ORDERED: Ascorbic Acid 500 mg Chewable Tablet PO SCH (10:15)
[2018-10-17] MEDS ORDERED: Tamsulosin HCl 0.4 MG CAP PO SCH (10:15)
--- NOTE | 2018-10-17 13:27 | PDOC.PN ---
- Subjective Encounter Start Date: 10/17/18 Encounter Start Time: 08:40 Pt seen for followup re: foot infection. Says he feels well. - Objective Resuscitation Status - Order Detail: 10/15/18 18:12 Resuscitation Status Routine Resuscitation Status: PRTL: Chem only Discussed with: patient and sgalmbas-ji-mas MAR Reviewed: Yes Vital Signs & Weight: Vital Signs (12 hours) Temp BP 10/17/18 11:15 116/70 10/17/18 11:00 97.9 F 10/17/18 08:00 97.7 F 10/17/18 04:00 98.0 F Weight Weight 193 lb 12.581 oz Most Recent Monitor Data Heart Rate from ECG 63 NIBP 116/70 NIBP BP-Mean 85 Respiration from ECG 22 SpO2 99 I&O: 10/16/18 10/17/18 10/18/18 06:59 06:59 06:59 Intake Total 634 1736 200 Output Total 375 1900 235 Balance 259 -164 -35 Result Diagrams: 10/17/18 04:20 10/17/18 04:20 EKG Reviewed by me: Yes (Tele: randall abernathy) Phys Exam - Physical Examination Constitutional: NAD HEENT: moist MMs, sclera anicteric, oral pharynx no lesions, 2+ tonsils Neck: no nodes, no JVD, supple, full ROM Respiratory: clear to auscultation bilateral Cardiovascular: no rub, irregular S1, S2 Gastrointestinal: soft, non-tender, no distention, positive bowel sounds s/p left above ankle amputation Neurological: moves all 4 limbs Psychiatric: normal affect, A&O x 3 Dx/Plan (1) Foot infection Code(s): L08.9 - LOCAL INFECTION OF THE SKIN AND SUBCUTANEOUS TISSUE, UNSP Status: Acute Comment: s/p L above ankle amputation, continue IV antibiotics. For BKA on 10/19/2018. (2) Atrial fibrillation Code(s): I48.91 - UNSPECIFIED ATRIAL FIBRILLATION Status: Chronic Comment: Start therapeutic Lovenox, hold after Saturday night for BKA on Saturday. Do NOT resume rivaroxaban. (3) Sepsis Code(s): A41.9 - SEPSIS, UNSPECIFIED ORGANISM Status: Resolved - Plan * . Review of Systems - Review of Systems Constitutional: negative: fever, chills, sweats, weakness, malaise, other Respiratory: negative: Cough, Shortness of Breath, SOB with Excertion, Pleuritic Pain, Wheezing Cardiovascular: negative: chest pain, palpitations, orthopnea, paroxysmal nocturnal dyspnea, edema, light headedness Gastrointestinal: negative: Nausea, Vomiting, Abdominal Pain, Diarrhea, Constipation, Melena, Hematochezia Genitourinary: negative: Dysuria, Frequency, Incontinence, Hematuria, Retention Musculoskeletal: Leg Pain - Medications/Allergies Allergies/Adverse Reactions: Allergies Allergy/AdvReac Type Severity Reaction Status Date / Time No Known Allergies Allergy Verified 12/23/14 12:28 Medications: Current Medications Acetaminophen (Tylenol) 1,000 mg PO Q6H PRN PRN Reason: Moderate to Severe Pain (6-10) Amiodarone HCl (Cordarone) 200 mg PO DAILY [facility] Last Admin: 10/17/18 09:28 Dose: 200 mg Ascorbic Acid (Vitamin C) 500 mg PO DAILY [facility] Benazepril HCl (Lotensin) 40 mg PO QAM [facility] Cholecalciferol (Vitamin D3) 1,000 units PO DAILY [facility] Piperacillin Sod/Tazobactam (Sod 3.375 gm/ Sodium Chloride) 100 mls @ 200 mls/ hr IVPB Q6HR [facility] Last Admin: 10/17/18 11:29 Dose: 100 mls Norepinephrine Bitartrate (Levophed) 250 mls @ 0 mls/hr IVPB PRN PRN; Protocol PRN Reason: To maintain MAP > 65 Potassium Chloride 40 meq/ (Sodium Chloride) 270 mls @ 135 mls/hr IVPB ASDIR PRN PRN Reason: FOR SERUM K+ 2.5 - 3.5 Potassium Chloride 40 meq/ (Device) 100 mls @ 50 mls/hr IVPB ASDIR PRN PRN Reason: FOR SERUM K+ 2.5 - 3.5 Magnesium Sulfate 1 gm/ Sodium (Chloride) 102 mls @ 102 mls/hr IV PRN PRN PRN Reason: MAG LEVEL 1.4 - 2.0 Magnesium Sulfate 2 gm/ Device 100 mls @ 100 mls/hr IVPB ASDIR PRN PRN Reason: MAGNESIUM < 1.4 Potassium Phosphate 9 mmol/ (Sodium Chloride) 103 mls @ 25.75 mls/hr IVPB ASDIR PRN PRN Reason: Phosphate 1.0-1.8 Potassium Phosphate 12 mmol/ (Sodium Chloride) 254 mls @ 63.5 mls/hr IV ASDIR PRN PRN Reason: Serum phosphate 0.5-0.9 Potassium Phosphate 15 mmol/ (Sodium Chloride) 255 mls @ 63.75 mls/hr IV ASDIR PRN PRN Reason: Serum Phos < 0.5 Vancomycin HCl 1.25 gm/ Sodium (Chloride) 250 mls @ 166.667 mls/hr IVPB 0800, 2000 [facility] Sodium Chloride (Normal Saline 0.9%) 1,000 mls @ 40 mls/hr IV .Q24H [facility] Last Admin: 10/17/18 09:29 Dose: Not Given Magnesium Oxide (Magnesium Oxide) 400 mg PO BIDPRN PRN PRN Reason: FOR SERUM MAG 1.4 - 2.0 Magnesium Oxide (Magnesium Oxide) 800 mg PO PRN PRN PRN Reason: FOR SERUM MAG < 1.4 Miscellaneous Medication (Pharmacy To Dose) 1 each IVPB PRN PRN PRN Reason: Pharmacy to dose Miscellaneous Medication (Ccu Electrolyte Replacement) 1 each IVPB ONE [facility] Stop: 11/14/18 19:52 Miscellaneous Medication (Phos-Nak) 1 pkt PO TIDPRN PRN PRN Reason: FOR PHOS LEVEL 1.0 - 1.8 Miscellaneous Medication (Phos-Nak) 2 pkt PO TIDPRN PRN PRN Reason: FOR PHOS LEVEL 0.5 - 1.0 Ccu Electrolyte (Replacement Protocol) 0 each FS PRN PRN PRN Reason: FOR ELECTROLYTE REPLACEMENT Pantoprazole Sodium (Protonix) 40 mg PO DAILY [facility] Polyethylene Glycol (Miralax) 17 gm PO DAILY [facility] Last Admin: 10/17/18 09:30 Dose: 17 gm Potassium Chloride (K-Dur) 40 meq PO ASDIR PRN PRN Reason: FOR SERUM K+ 2.5 - 3.5 Potassium Chloride (Klor-Con) 40 meq PER TUBE ASDIR PRN PRN Reason: FOR SERUM K+ 2.5-3.5 Rivaroxaban (Xarelto) 20 mg PO 1800 [facility] Senna/Docusate Sodium (Senokot S) 2 tab PO BID PRN PRN Reason: Constipation Sodium Chloride (Flush - Normal Saline) 10 ml IVF Q12HR [facility] Last Admin: 10/17/18 09:28 Dose: 10 ml Sodium Chloride (Flush - Normal Saline) 10 ml IVF PRN PRN PRN Reason: Saline Flush Last Admin: 10/16/18 09:03 Dose: 10 ml Tamsulosin HCl (Flomax) 0.4 mg PO DAILY [facility] Torsemide (Demadex) 10 mg PO DAILY [facility] Tramadol HCl (Ultram) 50 mg PO Q6H PRN PRN Reason: Pain Tramadol HCl (Ultram) 100 mg PO Q6H PRN PRN Reason: Pain Last Admin: 10/17/18 00:40 Dose: 100 mg
--- NOTE | 2018-10-17 14:30 | PRG ---
DATE OF SERVICE: 10/17/2018 SUBJECTIVE: Mr. Peterson is awake and alert. He denies leg discomfort. He is in no distress. He is in surprisingly good mood. OBJECTIVE: VITAL SIGNS: He is afebrile. Blood pressure 116/70, heart rate 60, and respiratory rate 18. LUNGS: Clear. HEART: Regular rhythm. ABDOMEN: Soft and nontender. LABORATORY DATA: White count 10.2, hemoglobin 10.9, platelets 165. Sodium 136, potassium 3.9, chloride 106, bicarb 24, BUN 18, and creatinine 0.93. IMPRESSION: 1. Status post [id number] amputation of his left lower extremity. 2. Chronic anticoagulation. 3. History of hypertension. 4. History of atrial fibrillation and atrial flutter. PLAN: Continue supportive care with wound care and increases out of bedtime. He is stable to move out of the critical care unit in my opinion. Job ID: [id number]
[2018-10-17] MEDS: Vancomycin HCl 1.25 GM in Sodium Chloride 0.9% 250 ML 250 ML IVPB SCH (20:44)
[2018-10-17] MEDS: Enoxaparin Sodium 100 MG/ML SYRINGE SC SCH (20:44)
--- NOTE | 2018-10-18 01:47 | PRG ---
DATE OF SERVICE: 10/18/2018 SUBJECTIVE: Mr. Peterson doing well today. OBJECTIVE: VITAL SIGNS: Temperature 98 degrees, pulse 66, and blood pressure 131/78. LUNGS: Clear to auscultation. CARDIAC: Regular rate and rhythm without murmur or gallop. ABDOMEN: Soft, nontender. EXTREMITIES: Amputation stump, left leg guillotine, dry. LABORATORY DATA: Hemoglobin 10, white count normal. Basic metabolic profile is normal. ASSESSMENT AND PLAN: Severe necrotizing infection, left foot, status post guillotine amputation. Plan is Saturday morning closure below-knee amputation. Questions were answered. We will plan this Saturday. Job ID: [id number]
[2018-10-18] MEDS: Piperacillin/Tazobactam 3.375 GM in Sodium Chloride 0.9% 100 ML IVPB SCH ×4 (06:05→23:48)
[2018-10-18 07:23] LABS: #Eosinphils 0.1 thou/uL (0.0-0.7); #Lymphocytes 1.1 thou/uL (1.20-3.40); #Monocytes 0.7 thou/uL (0.11-0.59); #Neutrophils 8.9 thou/uL (1.40-6.50); %Basophils 0.2 % (0.0-1.0); %Eosinophils 1.3 % (0.0-10.0); %Lymphocytes 10.2 % (21.0-51.0); %Monocytes 6.7 % (0.0-10.0); %Neutrophils 81.5 % (42.0-75.0); Hemoglobin 11.8 g/dL (14.0-18.0); Mean Corpuscular HGB CONC 31.7 g/dL (32.0-36.0); Mean Corpuscular Hemoglobin 30.1 pg (27.0-31.0); Mean Corpuscular Volume 95.1 fL (78.0-98.0); Mean Platelet Volume 8.7 fL (7.4-10.4); Platelet Count 219 thou/uL (130-400); RBC Distribution Width 14.3 % (11.5-14.5); Red Blood Cell (RBC) Count 3.91 mill/uL (4.70-6.10); White Blood Cell (WBC) Count 10.9 thou/uL (4.8-10.8)
[2018-10-18 07:44] LABS: Anion Gap 11 mmol/L (10-20); BUN (Urea Nitrogen) 21 mg/dL (8.4-25.7); Calc. Creatinine Clearance 70 mL/min (70-130); Calcium 8.1 mg/dL (7.8-10.44); Carbon Dioxide 26 mmol/L (23-31); Chloride 109 mmol/L (98-107); Estimated GFR-MDRD 71; Glucose 97 mg/dL (83-110); Potassium 3.7 mmol/L (3.5-5.1); Sodium 142 mmol/L (136-145)
[2018-10-18] MEDS: Vancomycin HCl 1.25 GM in Sodium Chloride 0.9% 250 ML 250 ML IVPB SCH (08:39)
[2018-10-18] MEDS: Polyethylene Glycol 3350 17 GM Packet PO SCH (08:39)
[2018-10-18] MEDS: Torsemide 10 MG TAB PO SCH (08:40)
[2018-10-18] MEDS: Tamsulosin HCl 0.4 MG CAP PO SCH (08:40)
[2018-10-18] MEDS: Ascorbic Acid 500 mg Chewable Tablet PO SCH (08:41)
[2018-10-18] MEDS: Amiodarone 200 MG TAB PO SCH (08:41)
[2018-10-18] MEDS: Enoxaparin Sodium 100 MG/ML SYRINGE SC SCH ×2 (08:41→20:06)
[2018-10-18] MEDS ORDERED: Amiodarone 200 MG TAB PO SCH (09:00)
--- NOTE | 2018-10-18 12:15 | PDOC.PN ---
- Subjective Encounter Start Date: 10/18/18 Encounter Start Time: 10:00 No complaint expressed. - Objective Resuscitation Status - Order Detail: 10/15/18 18:12 Resuscitation Status Routine Resuscitation Status: PRTL: Chem only Discussed with: patient and xawqjouv-uf-fog Vital Signs & Weight: Vital Signs (12 hours) Temp Pulse Resp BP BP Pulse Ox 10/18/18 11:29 97.8 F 18 L 18 124/73 95 10/18/18 08:40 116/70 10/18/18 08:00 97.7 F 80 14 181/96 H 90 L 10/18/18 04:34 97.9 F 63 20 136/89 94 L 10/18/18 00:16 98.0 F 66 20 131/78 93 L Weight Weight 199 lb 4.8 oz Most Recent Monitor Data Heart Rate from ECG 73 NIBP 93/74 NIBP BP-Mean 80 Respiration from ECG 23 SpO2 95 I&O: 10/17/18 10/18/18 10/19/18 06:59 06:59 06:59 Intake Total 1736 1163 Output Total 1900 930 Balance -164 233 Result Diagrams: 10/18/18 07:04 10/18/18 07:04 Phys Exam - Physical Examination Neck: no JVD Respiratory: clear to auscultation bilateral Cardiovascular: RRR Gastrointestinal: soft Musculoskeletal: no edema (s/p left BKA..) Neurological: moves all 4 limbs Dx/Plan (1) Foot infection Code(s): L08.9 - LOCAL INFECTION OF THE SKIN AND SUBCUTANEOUS TISSUE, UNSP Status: Acute Comment: s/p left BKA.. For stump closure tomorrow. (2) Sepsis Code(s): A41.9 - SEPSIS, UNSPECIFIED ORGANISM Status: Resolved Comment: On antibiotics.. (3) Atrial fibrillation Code(s): I48.91 - UNSPECIFIED ATRIAL FIBRILLATION Status: Chronic Comment: Start therapeutic Lovenox, hold after Saturday night for BKA on Saturday. Do NOT resume rivaroxaban. - Plan * .
--- NOTE | 2018-10-18 13:48 | PRG ---
DATE OF SERVICE: 10/18/2018 SUBJECTIVE: An 83-year-old gentleman who is status post amputation. OBJECTIVE: VITAL SIGNS: Sats are 95% on room air, temperature 97, respirations 18, blood pressure 124/73. GENERAL: Denies any pain or discomfort. CHEST: Reveal no wheezing. CARDIAC: Normal S1 and S2. No gallop. ABDOMEN: No masses. IMPRESSION: 1. Status post below-knee amputation, left. 2. Cardiac arrhythmia. PLAN: Pulmonary-arias, appear stable. At this stage, we will follow at a distance. Please call, if needed. Job ID: [id number]
[2018-10-18] MEDS: Sodium Chloride 0.9% 1,000 ML IV SCH (15:07)
[2018-10-18] MEDS ORDERED: Rivaroxaban 10 MG TAB PO SCH (18:00)
[2018-10-18] MEDS: Vancomycin HCl 1 GM in Premix Bag 1 BAG IVPB SCH (19:59)
[2018-10-19] MEDS: Piperacillin/Tazobactam 3.375 GM in Sodium Chloride 0.9% 100 ML IVPB SCH ×4 (05:27→22:43)
[2018-10-19] MEDS ORDERED: Lactated Ringer's 1,000 ML IV SCH (08:00)
[2018-10-19] MEDS: Tamsulosin HCl 0.4 MG CAP PO SCH (09:22)
[2018-10-19] MEDS: Vancomycin HCl 1 GM in Premix Bag 1 BAG IVPB SCH ×2 (09:22→20:58)
[2018-10-19] MEDS: Amiodarone 200 MG TAB PO SCH (09:23)
[2018-10-19] MEDS: Torsemide 10 MG TAB PO SCH (09:30)
[2018-10-19] MEDS: Polyethylene Glycol 3350 17 GM Packet PO SCH (09:31)
[2018-10-19] MEDS: Ascorbic Acid 500 mg Chewable Tablet PO SCH (09:31)
[2018-10-19] MEDS: Sodium Chloride 0.9% 1,000 ML IV SCH (09:31)
--- NOTE | 2018-10-19 09:49 | PDOC.PN ---
- Subjective Encounter Start Date: 10/19/18 Encounter Start Time: 07:40 Subjective: No complaint expressed. - Objective Resuscitation Status - Order Detail: 10/15/18 18:12 Resuscitation Status Routine Resuscitation Status: PRTL: Chem only Discussed with: patient and fxgwdqju-rt-deh Vital Signs & Weight: Vital Signs (12 hours) Temp Pulse Resp BP Pulse Ox 10/19/18 07:50 97.9 F 75 18 165/87 H 92 L 10/19/18 04:40 97.8 F 80 18 160/80 H 95 10/19/18 00:46 97.8 F 87 18 154/87 H 95 Weight Weight 202 lb 12.8 oz Most Recent Monitor Data Heart Rate from ECG 73 NIBP 93/74 NIBP BP-Mean 80 Respiration from ECG 23 SpO2 95 I&O: 10/18/18 10/19/18 10/20/18 06:59 06:59 06:59 Intake Total 1163 1380 Output Total 930 1200 Balance 233 180 Result Diagrams: 10/18/18 07:04 10/18/18 07:04 Phys Exam - Physical Examination Neck: no JVD Respiratory: clear to auscultation bilateral Cardiovascular: RRR Gastrointestinal: soft Musculoskeletal: no edema s/p left bka. Neurological: moves all 4 limbs Dx/Plan (1) Foot infection Code(s): L08.9 - LOCAL INFECTION OF THE SKIN AND SUBCUTANEOUS TISSUE, UNSP Status: Acute Comment: s/p left BKA.. For stump closure today.. (2) Sepsis Code(s): A41.9 - SEPSIS, UNSPECIFIED ORGANISM Status: Resolved Comment: On antibiotics.. (3) Atrial fibrillation Code(s): I48.91 - UNSPECIFIED ATRIAL FIBRILLATION Status: Chronic Comment: resume rivaroxaban tomorrow.. - Plan -: Continue current therapy. -: f/u with consultants.. * .
--- NOTE | 2018-10-19 11:10 | PRG ---
DATE OF SERVICE: 10/18/2018 Dileep Peterson is doing well today BUN 21 and creatinine white count 10. The patient has baseline mental status. His dressing is dry. Plan BKA tomorrow. We will plan this in the morning. N.p.o. after midnight tonight. Job ID: [id number]
[2018-10-19] MEDS ORDERED: Famotidine/PF 20 mg/2ml Vial ONE (11:23)
[2018-10-19] MEDS ORDERED: Fentanyl 100 MCG/2 ML VIAL ONE ×2 (11:23→13:37)
[2018-10-19] MEDS ORDERED: Ondansetron HCl/PF 4 MG/2 ML Vial IVP PRN (12:17)
[2018-10-19] MEDS ORDERED: PROPOFOL 200 MG/20 ML VIAL ONE (15:07)
[2018-10-19] MEDS ORDERED: Lidocaine 1% PF 5 ML VIAL ONE (15:07)
[2018-10-19] MEDS ORDERED: PHENYLEPHRINE-NS 100 MCG/ML 10 ML SYRINGE ONE (15:07)
[2018-10-19] MEDS ORDERED: Ondansetron PF 4 MG/2 ML Vial ONE (15:07)
[2018-10-19] MEDS ORDERED: ePHEDrine/0.9% NaCl/PF SYRINGE 50 mg/10 ml ONE (15:07)
[2018-10-19] MEDS ORDERED: Dexamethasone 20 MG/5 ML VIAL ONE (15:07)
--- NOTE | 2018-10-19 16:06 | OP ---
DATE OF PROCEDURE: 10/18/2018 PREOPERATIVE DIAGNOSES: Severe necrotizing infection, left foot, Charcot's joint, status post guillotine amputation, now for formal closure. POSTOPERATIVE DIAGNOSES: Severe necrotizing infection, left foot, Charcot's joint, status post guillotine amputation, now for formal closure. PROCEDURE PERFORMED: Left psbwq-jxw-sujr amputation. ANESTHESIA: General . ESTIMATED BLOOD LOSS: 200 mL. BLOOD TRANSFUSION: None. DESCRIPTION OF PROCEDURE: The patient was taken to the operating room, where under general anesthesia, left lower extremity was prepared with ChloraPrep and draped in routine fashion. An incision was made for a long posterior flap. A fishmouth incision was carried down to the skin, subcutaneous tissue, fascia, divided the muscular bundles with the cautery and vascular bundles with between clamps and ligated with 2-0 silk ties. Tibia transected with Gigli saw, beveling the anterior edge cephalad, smoothened the edges cut about 2 inches above the cut edge of the tibia. Wound was irrigated. Hemostasis was obtained with cautery and 2-0 Vicryl tie. Good hemostasis was noted. Fascia was approximated with interrupted [id number] sutures of 2-0 Vicryl. Skin with annemarie. Sterile dressing applied. Job ID: [id number]
[2018-10-19] MEDS: traMADol HCl 50 MG TAB PO PRN (21:01)
[2018-10-20] MEDS: Piperacillin/Tazobactam 3.375 GM in Sodium Chloride 0.9% 100 ML IVPB SCH ×4 (05:18→21:42)
[2018-10-20] MEDS: Sodium Chloride 0.9% 1,000 ML IV SCH (05:19)
[2018-10-20] MEDS: Torsemide 10 MG TAB PO SCH (08:12)
[2018-10-20] MEDS: Polyethylene Glycol 3350 17 GM Packet PO SCH (08:12)
[2018-10-20] MEDS: Ascorbic Acid 500 mg Chewable Tablet PO SCH (08:13)
[2018-10-20] MEDS: Tamsulosin HCl 0.4 MG CAP PO SCH (08:13)
[2018-10-20] MEDS: Amiodarone 200 MG TAB PO SCH (08:14)
[2018-10-20] MEDS: Vancomycin HCl 1 GM in Premix Bag 1 BAG IVPB SCH ×2 (08:14→20:22)
[2018-10-20 08:32] LABS: Vancomycin, Trough 20.9 ug/mL
--- NOTE | 2018-10-20 10:17 | PDOC.PN ---
- Subjective Encounter Start Date: 10/20/18 Encounter Start Time: 10:15 -: old records requested/rev Pt seen and examined, chart reviewed inits entirety, this si my first visit with this patient follow up for gangrene of foot, S/P guillotine amputation and 10/19 taken for formal closure No F/c, no N/V/D/C, no CP or sOB All systems reviewed and neg x as above - Objective Resuscitation Status - Order Detail: 10/15/18 18:12 Resuscitation Status Routine Resuscitation Status: PRTL: Chem only Discussed with: patient and xvikwtnz-ex-qwo MAR Reviewed: Yes Vital Signs & Weight: Vital Signs (12 hours) Temp Pulse Resp BP BP Pulse Ox 10/20/18 08:13 130/67 10/20/18 08:00 98.8 F 73 18 130/67 95 10/20/18 04:49 98 F 82 19 116/65 94 L 10/19/18 23:40 98.5 F 105 H 18 128/76 97 Weight Weight 193 lb 12.581 oz Most Recent Monitor Data Heart Rate from ECG 73 NIBP 93/74 NIBP BP-Mean 80 Respiration from ECG 23 SpO2 95 I&O: 10/19/18 10/20/18 10/21/18 06:59 06:59 06:59 Intake Total 1380 1820 Output Total 1200 3450 Balance 180 -1630 Result Diagrams: 10/18/18 07:04 10/18/18 07:04 Radiology Reviewed by me: Yes EKG Reviewed by me: Yes Phys Exam - Physical Examination Constitutional: NAD HEENT: PERRLA, moist MMs, sclera anicteric, oral pharynx no lesions Neck: no nodes, no JVD, supple, full ROM Respiratory: no wheezing, no rales, no rhonchi, clear to auscultation bilateral Cardiovascular: RRR, no significant murmur, no rub Gastrointestinal: soft, non-tender, no distention, positive bowel sounds post op dressing C/D/I, no strikethrough, not removed Neurological: non-focal, normal sensation, moves all 4 limbs Lymphatic: no nodes Psychiatric: normal affect, A&O x 3 Skin: no rash, normal turgor, cap refill <2 seconds Dx/Plan (1) Foot infection Code(s): L08.9 - LOCAL INFECTION OF THE SKIN AND SUBCUTANEOUS TISSUE, UNSP Status: Acute Comment: s/p left BKA.. For stump closure 10/19.. (2) Sepsis Code(s): A41.9 - SEPSIS, UNSPECIFIED ORGANISM Status: Resolved Qualifiers: Sepsis type: Streptococcus, unspecified Qualified Code(s): A40.9 - Streptococcal sepsis, unspecified; A40 - Streptococcal sepsis Comment: On antibiotics.. (3) Atrial fibrillation Code(s): I48.91 - UNSPECIFIED ATRIAL FIBRILLATION Status: Chronic Qualifiers: Atrial fibrillation type: paroxysmal Qualified Code(s): I48.0 - Paroxysmal atrial fibrillation Comment: resume rivaroxaban today - Plan cont current plan of care, continue antibiotics, PT/OT, manager social responsibility * . off abx soon, placement when approved after holidat, CCM otherwise. [facility] [employer], [address] requested
--- NOTE | 2018-10-20 17:49 | PRG ---
DATE OF SERVICE: 10/20/2018 Mr. Peterson underwent a left BKA yesterday. He states that his pain is controlled and that he is not having any problems. His OR dressing is in place, and there is no bleeding through the dressings. He has good range of motion in his knee. No obvious postoperative issues. The patient has been referred for rehab. Job ID: [id number]
[2018-10-21] MEDS: Piperacillin/Tazobactam 3.375 GM in Sodium Chloride 0.9% 100 ML IVPB SCH ×4 (04:35→21:24)
[2018-10-21] MEDS: Sodium Chloride 0.9% 1,000 ML IV SCH (05:44)
[2018-10-21] MEDS: Vancomycin HCl 1 GM in Premix Bag 1 BAG IVPB SCH ×2 (08:19→21:24)
[2018-10-21] MEDS: Torsemide 10 MG TAB PO SCH (08:20)
[2018-10-21] MEDS: Polyethylene Glycol 3350 17 GM Packet PO SCH (08:20)
[2018-10-21] MEDS: Amiodarone 200 MG TAB PO SCH (08:21)
[2018-10-21] MEDS: Tamsulosin HCl 0.4 MG CAP PO SCH (08:21)
[2018-10-21] MEDS: Ascorbic Acid 500 mg Chewable Tablet PO SCH (08:22)
--- NOTE | 2018-10-21 12:24 | EKG ---
Test Reason : Blood Pressure : / mmHG Vent. Rate : 114 BPM Atrial Rate : 131 BPM P-R Int : 000 ms QRS Dur : 088 ms QT Int : 340 ms P-R-T Axes : 000 -34 -03 degrees QTc Int : 468 ms Atrial fibrillation with rapid ventricular response Left axis deviation Abnormal ECG Confirmed by CARLOS FLORIAN ([id number]), supervising editor trailer DESEAN MORENO ([id number]) on 10/21/2018 12:23:45 PM Referred By: Confirmed By:CARLOS FLORIAN
--- NOTE | 2018-10-21 12:24 | EKG ---
Test Reason : Blood Pressure : / mmHG Vent. Rate : 162 BPM Atrial Rate : 074 BPM P-R Int : 000 ms QRS Dur : 092 ms QT Int : 312 ms P-R-T Axes : 000 -38 -16 degrees QTc Int : 512 ms Supraventricular tachycardia Left axis deviation Nonspecific ST abnormality Abnormal ECG Confirmed by CARLOS FLORIAN ([id number]), editorial manager DESEAN MORENO ([id number]) on 10/21/2018 12:23:45 PM Referred By: Confirmed By:CARLOS FLORIAN
--- NOTE | 2018-10-21 13:57 | PRG ---
DATE OF SERVICE: 10/21/2018 SUBJECTIVE: Mr. Peterson feels fine today. He denies any pain in his stump. He is afebrile with mild hypertension, but vital signs are otherwise normal. His left stump is wrapped without any bleeding or drainage and this dressing will be taken down tomorrow. ASSESSMENT AND PLAN: Status post left below-knee amputation, doing well. Awaiting placement in rehab. No new recommendations. . Job ID: [id number]
--- NOTE | 2018-10-21 15:33 | PDOC.PN ---
- Subjective Encounter Start Date: 10/21/18 Encounter Start Time: 09:30 follow up for gangrene of foot, S/P guillotine amputation and 10/19 taken for formal closure No F/c, no N/V/D/C, no CP or sOB All systems reviewed and neg x as above. Swallowing better - Objective Resuscitation Status - Order Detail: 10/15/18 18:12 Resuscitation Status Routine Resuscitation Status: PRTL: Chem only Discussed with: patient and rabheqln-od-mrn MAR Reviewed: Yes Vital Signs & Weight: Vital Signs (12 hours) Temp Pulse Pulse Pulse Resp BP BP 10/21/18 11:56 98.1 F 108 H 16 125/87 10/21/18 10:40 116 H 92 10/21/18 08:20 153/79 H 10/21/18 08:06 98.2 F 70 20 153/79 H 10/21/18 08:00 10/21/18 07:42 10/21/18 04:38 98.1 F 70 16 156/85 H Pulse Ox 10/21/18 11:56 93 L 10/21/18 10:40 10/21/18 08:20 10/21/18 08:06 93 L 10/21/18 08:00 93 L 10/21/18 07:42 93 L 10/21/18 04:38 93 L Weight Weight 200 lb 6 oz Most Recent Monitor Data Heart Rate from ECG 73 NIBP 93/74 NIBP BP-Mean 80 Respiration from ECG 23 SpO2 95 I&O: 10/20/18 10/21/18 10/22/18 06:59 06:59 06:59 Intake Total 1820 3040 Output Total 3450 2875 Balance -1630 165 Result Diagrams: 10/18/18 07:04 10/18/18 07:04 Phys Exam - Physical Examination Constitutional: NAD HEENT: PERRLA, moist MMs, sclera anicteric, oral pharynx no lesions Neck: no nodes, no JVD, supple, full ROM Respiratory: no wheezing, no rales, no rhonchi, clear to auscultation bilateral Cardiovascular: RRR, no significant murmur, no rub Gastrointestinal: soft, non-tender, no distention, positive bowel sounds Musculoskeletal: no edema left BKA stump dressed, no strikethough Neurological: non-focal, normal sensation, moves all 4 limbs Lymphatic: no nodes Dx/Plan (1) Foot infection Code(s): L08.9 - LOCAL INFECTION OF THE SKIN AND SUBCUTANEOUS TISSUE, UNSP Status: Acute Comment: s/p left BKA.. For stump closure 10/19.. placement in rehab [facility] currently pending (2) Sepsis Code(s): A41.9 - SEPSIS, UNSPECIFIED ORGANISM Status: Resolved Qualifiers: Sepsis type: Streptococcus, unspecified Qualified Code(s): A40.9 - Streptococcal sepsis, unspecified; A40 - Streptococcal sepsis Comment: On antibiotics.. (3) Atrial fibrillation Code(s): I48.91 - UNSPECIFIED ATRIAL FIBRILLATION Status: Chronic Qualifiers: Atrial fibrillation type: paroxysmal Qualified Code(s): I48.0 - Paroxysmal atrial fibrillation Comment: resume rivaroxaban today - Plan * .
[2018-10-21 20:51] LABS: Vancomycin, Trough 21.9 ug/mL
[2018-10-22] MEDS: Piperacillin/Tazobactam 3.375 GM in Sodium Chloride 0.9% 100 ML IVPB SCH ×4 (04:37→22:40)
[2018-10-22 07:09] LABS: #Eosinphils 0.2 thou/uL (0.0-0.7); #Lymphocytes 0.8 thou/uL (1.20-3.40); #Monocytes 0.7 thou/uL (0.11-0.59); #Neutrophils 7.5 thou/uL (1.40-6.50); %Eosinophils 2.5 % (0.0-10.0); %Monocytes 7.4 % (0.0-10.0); Mean Corpuscular HGB CONC 32.1 g/dL (32.0-36.0); Mean Corpuscular Hemoglobin 30.2 pg (27.0-31.0); Mean Corpuscular Volume 94.1 fL (78.0-98.0); Mean Platelet Volume 8.1 fL (7.4-10.4); Platelet Count 272 thou/uL (130-400); RBC Distribution Width 14.2 % (11.5-14.5); White Blood Cell (WBC) Count 9.2 thou/uL (4.8-10.8)
[2018-10-22 07:25] LABS: Anion Gap 9 mmol/L (10-20); BUN (Urea Nitrogen) 8 mg/dL (8.4-25.7); Calc. Creatinine Clearance 83 mL/min (70-130); Calcium 7.6 mg/dL (7.8-10.44); Carbon Dioxide 32 mmol/L (23-31); Chloride 105 mmol/L (98-107); Estimated GFR-MDRD Greater than 90; Glucose 94 mg/dL (83-110); Magnesium 1.8 mg/dL (1.6-2.6); Potassium 3.1 mmol/L (3.5-5.1); Sodium 143 mmol/L (136-145)
[2018-10-22] MEDS: Polyethylene Glycol 3350 17 GM Packet PO SCH (08:41)
[2018-10-22] MEDS: Tamsulosin HCl 0.4 MG CAP PO SCH (08:42)
[2018-10-22] MEDS: Amiodarone 200 MG TAB PO SCH (08:42)
[2018-10-22] MEDS: Ascorbic Acid 500 mg Chewable Tablet PO SCH (08:42)
[2018-10-22] MEDS: Torsemide 10 MG TAB PO SCH (08:43)
[2018-10-22] MEDS: Sodium Chloride 0.9% 1,000 ML IV SCH (10:27)
[2018-10-22] MEDS: Vancomycin HCl 1 GM in Premix Bag 1 BAG IVPB SCH ×2 (11:05→23:57)
[2018-10-22] MEDS ORDERED: Triple Antibiotic Oint 1 GM Packet TOP SCH (12:30)
--- NOTE | 2018-10-22 17:00 | PRG ---
DATE OF SERVICE: 10/22/2018 SUBJECTIVE: The patient doing well. He has a stump in his leg. His dressing was changed for his amputation. His amputation stump looks good. His transfer to [facility] is pending for rehab. Overall, the patient is doing well with Physical Therapy. At this point, he is doing well. I would recommend he return to see me in my office in 2 weeks for staple removal. Continue treatment with therapy for mobility. Job ID: [id number]
[2018-10-23] MEDS: Piperacillin/Tazobactam 3.375 GM in Sodium Chloride 0.9% 100 ML IVPB SCH (05:20)
[2018-10-23] MEDS: Sodium Chloride 0.9% 1,000 ML IV SCH (08:12)
[2018-10-23] MEDS: Tamsulosin HCl 0.4 MG CAP PO SCH (08:15)
[2018-10-23] MEDS: Polyethylene Glycol 3350 17 GM Packet PO SCH (08:15)
[2018-10-23] MEDS: Ascorbic Acid 500 mg Chewable Tablet PO SCH (08:15)
[2018-10-23] MEDS: Amiodarone 200 MG TAB PO SCH (08:15)
[2018-10-23] MEDS: Torsemide 10 MG TAB PO SCH (08:16)
[2018-10-23 08:18] VITALS: TEMP 97.8
[2018-10-23] MEDS ORDERED: Triple Antibiotic Oint 1 GM Packet TOP SCH (09:00)
[2018-10-23 09:49] LABS: Anion Gap 10 mmol/L (10-20); BUN (Urea Nitrogen) 7 mg/dL (8.4-25.7); Calc. Creatinine Clearance 67 mL/min (70-130); Carbon Dioxide 30 mmol/L (23-31); Chloride 105 mmol/L (98-107); Estimated GFR-MDRD 71; Glucose 103 mg/dL (83-110); Potassium 3.2 mmol/L (3.5-5.1); Sodium 142 mmol/L (136-145)
[2018-10-23 11:29] VITALS: BP 155/87
[2018-10-23] MEDS ORDERED: Potassium Chloride 20 MEQ TAB PO SCH (11:30)
[2018-10-23 12:01] VITALS: BMI 25.8
--- NOTE | 2018-10-23 14:22 | DIS ---
DATE OF ADMISSION: 10/15/2018 DATE OF DISCHARGE: 10/23/2018 CONSULTANTS: 1. Dr. Kothari of Infectious Disease. 2. Dr. Quintero of Cardiology. 3. Dr. Dumont and Dr. Sharp of General Surgery. 4. Dr. Mishra of Pulmonology. DISCHARGE DISPOSITION: [facility] for custodial care. CODE STATUS: Chemical code only. MEDICATIONS: Reconciled at discharge and unchanged compared with admission. They are; 1. Vitamin C 500 mg once a day. 2. Benazepril 40 mg once a day. 3. Vitamin D3 of 1000 units once a day. 4. Protonix 40 mg once a day. 5. Tamsulosin 0.4 mg once a day. 6. Torsemide 10 mg once a day. 7. Amiodarone 200 mg once a day. 8. Xarelto 20 mg once a day. New mediations; 1. Tramadol 50 mg tablet one or two tablets every 6 hours as needed for pain. DISCONTINUED MEDICATIONS: None. FOLLOWUP: Follow up is with Dr. Sharp in 1 1/2 - 2 weeks for re-evaluation of surgical wound and removal of annemarie, sooner if needed. WOUND CARE: Daily washing of the stump with soap and water, antibiotic ointment , Telfa, and then the stump school psychological examiner. FINAL DIAGNOSES: 1. Sepsis secondary to left foot infection, now status post left below knee amputation. 2. Tachycardia, resolved. 3. Hypokalemia. 4. Hypertension. 5. Atrial fibrillation. 6. Peripheral neuropathy. 7. Dyslipidemia. 8. Anemia, postoperatively. HISTORY OF PRESENT ILLNESS: Mr. Peterson is an 83-year-old male, who had a chronic ulcer on the plantar aspect of his left foot, a procedure performed, followed by worsening swelling and erythema of his left foot with fever. In the emergency department, the patient was found in the sepsis criteria, started on broad spectrum antibiotics. HOSPITAL COURSE: During his hospitalization, the patient was evaluated by Infectious Disease and General Surgery. Ultimately, he underwent a BKA on 10/19. He was on Zosyn during the hospitalization up until today, as no further antibiotics are necessary. He was continued on his usual medications with the exception of rivaroxaban due to surgery. This will be resumed to help reduce the risk of stroke associated with a known atrial fibrillation. The patient was evaluated by Pulmonology while here, with no additional recommendations. In addition, he was evaluated by Dr. Quintero of Cardiology with recommendation to continue amiodarone and holding of the Xarelto until a decision with Surgery was made. On day of discharge, the patient's received 40 mEq of potassium to address the hypokalemia. The patient has overall done well postoperatively and does meet criteria for discharge to a custodial facility to assist with wound care. PHYSICAL EXAM: Gen: Awake, alert, responsive, in no apparent distress. Lungs: Clear to auscultation without audible wheezing/rhonchi/rales Heart: Normal S1/S2 without significant murmur Abdomen: soft, present bowel sounds Ext: Left stump school psychological examiner in place ZHU FINDINGS AND TEST RESULTS: CBC today; 9.2, 10.0, 31.0, and 272. Renal panel today; 142, 3.2, 105, 30, 7, 1.0 with a glucose of 103. Urinalysis on 10/15 showed present protein, trace blood, 4-6 hyaline casts. Urine drug screen showed detected benzodiazepines on 10/15. Otherwise, negative. Microbiology; bacterial culture of the left foot showed MRSA and Peptostreptococcus prevotii. Urine culture on 10/15 was negative. Blood culture on 10/15 was negative. Flu swab on 10/15 was negative. Foot bacterial culture from 10/15, Staphylococcus aureus. Second blood culture on 10/15 was negative. Surgical specimen reports showed ischemic ulceration and gangrene, calcific atherosclerosis, and surgical margins are viable. 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 Foot x-ray on 10/15; extrinsic erosion of the distal phalanx of the small toe, severe midfoot collapse and osteonecrosis, large plantar midfoot wound with faint linear radiopacity projecting from the skin surface to the midfoot bone. Chest x-ray on 10/15; chronic findings concerning for possible underlying pulmonary fibrosis. C-spine on 10/15/2018; degenerative changes on the C-spine without fracture or subluxation, heterogeneity of the each lobe of the thyroid gland with questionable small nodule in the inferior pole of the left thyroid gland, ground-glass densities in the upper lung zones which may be atelectasis, gas within vein in a supraclavicular location which is probably replacement of a peripheral IV. Brain CT on 10/15; no acute intracranial abnormality. Chest x-ray on 10/15; no significant change after line placement. I have reviewed with the patient this hospitalization, the transfer for further care, no questions are further needed at the end of evaluation. DIET: Heart healthy ACTIVITY: Encouraged with physical therapy and occupational therapy. FOLLOW UP: request potassium check in 2 days for monitoring and treatment of hypokalemia. TIME SPENT: Total time for discharge is 40 minutes. Job ID: [id number] MTDD
== END 2018-10-23 15:26 | DRG 854 ==
LOC: ERS 15:07 → ERHOLD 18:12 → CCU 21:22 → SURG A 10-17 13:39
PROVIDERS: ADMIT Internal Medicine; ATTEND Internal Medicine
PROC: 0Y6N0Z0 Detachment at Left Foot, Complete, Open Approach (ICD-10-PCS; principal; 2018-10-16)
PROC: 0Y6J0Z2 Detachment at Left Lower Leg, Mid, Open Approach (ICD-10-PCS; 2018-10-19)
DX: A41.9 Sepsis, unspecified organism (principal); M87.875 Other osteonecrosis, left foot; I47.1 Supraventricular tachycardia; M86.8X7 Other osteomyelitis, ankle and foot; D62 Acute posthemorrhagic anemia; I48.0 Paroxysmal atrial fibrillation; M14.672 Charcot's joint, left ankle and foot; G62.9 Polyneuropathy, unspecified; B95.62 Methicillin resistant Staphylococcus aureus infection as the cause of diseases classified elsewhere; B95.4 Other streptococcus as the cause of diseases classified elsewhere; E87.6 Hypokalemia; I10 Essential (primary) hypertension; I48.91 Unspecified atrial fibrillation; F03.90 Unspecified dementia, unspecified severity, without behavioral disturbance, psychotic disturbance, mood disturbance, and anxiety; E78.5 Hyperlipidemia, unspecified; Z82.49 Family history of ischemic heart disease and other diseases of the circulatory system; Z79.01 Long term (current) use of anticoagulants
CPT/HCPCS: 36415; 36556; 51701; 70450; 71045; 72125; 80048; 80053; 80202; 80306; 80307; 81003; 81015; 82550; 82553; 83605; 83690; 83735; 84484; 85025; 85610; 85730; 86850; 86900; 86901; 87040; 87070; 87076; 87077; 87086; 87186; 87205; 87804; 88307; 88311; 93005; 96361; 96365; 96366; 99292; G8978-GP-CL; G8979-GP-CJ; G8987-GO-CK; G8988-GO-CJ; G8996-GN-CJ; G8997-GN-CI; J1100; J1650; J2001; J2405; J2543; J2704; J3010; J3370; J7050; L8440; S0028

== ENCOUNTER 2018-12-25 18:37 | Inpatient (IN) | payer MEDICARE, OTHER ==
[2018-12-25 19:28] LABS: Hemoglobin 12.9 g/dL (14.0-18.0); Mean Corpuscular HGB CONC 31.5 g/dL (32.0-36.0); Mean Corpuscular Hemoglobin 29.6 pg (27.0-31.0); Mean Corpuscular Volume 93.8 fL (78.0-98.0); Platelet Count 196 thou/uL (130-400); RBC Distribution Width 14.3 % (11.5-14.5); Red Blood Cell (RBC) Count 4.36 mill/uL (4.70-6.10); White Blood Cell (WBC) Count 16.4 thou/uL (4.8-10.8)
[2018-12-25 19:49] LABS: Band 6 % (5-11); Lymphocytes 4 % (21-51); MDiff Complete? YES; Monocytes 4 % (0-10); Neutrophil 86 % (42-75)
[2018-12-25 20:12] LABS: ALT (SGPT) 18 U/L (8-55); AST (SGOT) 19 U/L (5-34); Albumin 3.1 g/dL (3.4-4.8); Alkaline Phosphatase 87 U/L (40-150); Anion Gap 18 mmol/L (10-20); BUN (Urea Nitrogen) 21 mg/dL (8.4-25.7); Bilirubin, Total 0.6 mg/dL (0.2-1.2); Calc. Creatinine Clearance 0 mL/min (70-130); Calcium 8.4 mg/dL (7.8-10.44); Carbon Dioxide 27 mmol/L (23-31); Chloride 97 mmol/L (98-107); Estimated GFR-MDRD 42; Globulin 2.7 g/dL (2.4-3.5); Glucose 105 mg/dL (83-110); Potassium 4.5 mmol/L (3.5-5.1); Protein, Total 5.8 g/dL (5.8-8.1); Sodium 137 mmol/L (136-145)
--- NOTE | 2018-12-25 20:13 | RAD ---
PORTABLE CHEST: 12/25/18 HISTORY: Hypertension. COMPARISON: 10/15/18. Elevated left hemidiaphragm with blunting of the left CP angle and evidence of left basilar atelectas is or infiltrate is seen. These changes are stable from 10/15/18. Interstitial prominence in the right lower lung is also stable in appearance. Vascular markings within normal range. Mild cardiomegaly. IMPRESSION: Chest findings are stable when compared to 10/15/18 as described above. POS: TARYN
[2018-12-25] MEDS ORDERED: Piperacillin/Tazobactam 4.5 GM VIAL ONE (21:11)
--- NOTE | 2018-12-25 21:47 | PDOC.FPRHP ---
- History of Present Illness Chief Complaint: cough, hypotension History of Present Illness: 83 yo M with PMH of dementia and afib presents from [facility], sent over for hypotension and concern for UTI. En route to ED, patient's blood pressures were stable 145/95. Pt complained of rhinorrea, cough and decreased appetite, as well as loose stools (1/day or less BM). Denied fever, CP, SOB or urinary symptoms. P 106, WBC elevated to 16.4. Patient became hypotensive, 80/50s in ED. Received 3 L NS. Rt fem central line started and admitted to ICU. CXR showed LLL atelectasis vs infiltrate, UA positive for UTI. Vanc and zosyn started. - Allergies/Adverse Reactions Allergies Allergy/AdvReac Type Severity Reaction Status Date / Time No Known Allergies Allergy Verified 12/23/14 12:28 - Home Medications Medication Instructions Recorded Confirmed Type Pantoprazole [Protonix] 20 mg PO DAILY 04/22/13 12/26/18 History Rivaroxaban [Xarelto] 20 mg PO DAILY 04/22/13 12/26/18 History Torsemide 10 mg PO DAILY 04/22/13 12/26/18 History Benazepril HCl 40 mg PO QAM 04/24/13 12/26/18 History Ascorbic Acid [Vitamin C] 500 mg PO DAILY 07/20/15 12/26/18 History Amiodarone HCl 200 mg PO DAILY 10/16/18 12/26/18 History Cholecalciferol (Vitamin D3) 1,000 unit PO DAILY 10/16/18 12/26/18 History [Vitamin D] Tamsulosin HCl 0.4 mg PO DAILY 10/16/18 12/26/18 History traMADol HCl [Ultram] 50 mg PO Q6H PRN tab 10/23/18 12/26/18 Rx traMADol HCl [Ultram] 100 mg PO Q6H PRN tab 10/23/18 12/26/18 Rx Loperamide HCl [Imodium A-D] 2 mg PO Q4HR PRN 12/26/18 12/26/18 History Nystatin [Nystatin Powder] 1 applic TOP BID PRN 12/26/18 12/26/18 History Saccharomyces Boulardii [Digestive 500 mg PO DAILY 12/26/18 12/26/18 History Probiotic] - History PMHx: Atrial fibrillation, peripheral neuropathy, L BKA, HLD, BPH, GERD, HTN, dementia PSHx: appendectomy, L BKA FHx: SD in mother, brain tumor in son ( age 55, 3 weeks ago) Social: denies tobacco, alcohol, or drug use. 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 denies: fever/chills Eyes: denies: eye pain, vision changes ENT: reports: rhinorrhea. denies: nasal congestion Respiratory: reports: cough. denies: congestion, shortness of breath Cardiovascular: denies: chest pain, palpitation Gastrointestinal: reports: diarrhea. denies: nausea, vomiting, constipation, abdominal pain, GI bleeding Genitourinary: denies: dysuria, other (hematuria) Skin: denies: rashes Musculoskeletal: denies: pain, tenderness Neurological: reports: numbness (right foot). denies: weakness Psychological: reports: anxiety (feels anxious currently). denies: depression - Vital signs BP: [80/46] HR: [85] RR: [24] Tmax: [98.3] Pox: [92]% on [RA] Wt: [83.9 kg] - Physical Exam Constitutional: NAD, awake, alert and oriented, well developed HEENT: normocephalic and atraumatic, PERRLA, EOMI, grossly normal hearing, oropharynx clear, other (MM dry) Neck: supple, trachea midline, no LAD Heart: RRR, normal S1/S2, no murmurs/rubs/gallops, pulses present Lungs: no respiratory distress, good air movement, other (expiratory crackles at bases, R>L) Abdomen: soft, non-tender, bowel sounds present, no masses/distention Musculoskeletal: normal structure (L BKA), normal tone Neurological: no focal deficit, CN II-XII intact Skin: other (poor turgor, cap refill delayed) Heme/Lymphatic: no petechia, other (some bruising on arms) Psychiatric: normal mood and affect, good judgment and insight, intact recent and remote memory FMR H&P: Results - Labs Result Diagrams: 12/25/18 19:00 12/25/18 19:00 Lab results: WBC 16.4 thou/uL (4.8-10.8) H 12/25/18 19:00 Hgb 12.9 g/dL (14.0-18.0) L 12/25/18 19:00 Hct 40.8 % (42.0-52.0) L 12/25/18 19:00 MCV 93.8 fL (78.0-98.0) 12/25/18 19:00 Plt Count 196 thou/uL (130-400) 12/25/18 19:00 Band Neuts % (Manual) 6 % (5-11) 12/25/18 19:00 Sodium 137 mmol/L (136-145) 12/25/18 19:00 Potassium 4.5 mmol/L (3.5-5.1) 12/25/18 19:00 Chloride 97 mmol/L (98-107) L 12/25/18 19:00 Carbon Dioxide 27 mmol/L (23-31) 12/25/18 19:00 BUN 21 mg/dL (8.4-25.7) 12/25/18 19:00 Creatinine 1.59 mg/dL (0.7-1.3) H 12/25/18 19:00 Glucose 105 mg/dL (83-110) 12/25/18 19:00 Lactic Acid 3.0 mmol/L (0.5-2.2) H 12/25/18 19:00 Calcium 8.4 mg/dL (7.8-10.44) 12/25/18 19:00 Total Bilirubin 0.6 mg/dL (0.2-1.2) 12/25/18 19:00 AST 19 U/L (5-34) 12/25/18 19:00 ALT 18 U/L (8-55) 12/25/18 19:00 Alkaline Phosphatase 87 U/L (40-150) 12/25/18 19:00 Serum Total Protein 5.8 g/dL (5.8-8.1) 12/25/18 19:00 Albumin 3.1 g/dL (3.4-4.8) L 12/25/18 19:00 - EKG Interpretation EKG: atrial fibrillation, left axis deviation - Radiology Interpretation Chest x-ray Status: image reviewed by me, report reviewed by me Additional comment: LLL atelectasis vs infiltrate, stable RLL interstitial prominence, stable FMR H&P: A/P - Problem List (1) Septic shock Current Visit: Yes Status: Acute Code(s): A41.9 - SEPSIS, UNSPECIFIED ORGANISM; R65.21 - SEVERE SEPSIS WITH SEPTIC SHOCK (2) UTI (urinary tract infection) Current Visit: Yes Status: Acute (3) CAP (community acquired pneumonia) Current Visit: Yes Status: Acute Code(s): J18.9 - PNEUMONIA, UNSPECIFIED ORGANISM (4) HTN (hypertension) Current Visit: Yes Status: Chronic Code(s): I10 - ESSENTIAL (PRIMARY) HYPERTENSION (5) HLD (hyperlipidemia) Current Visit: Yes Status: Chronic Code(s): E78.5 - HYPERLIPIDEMIA, UNSPECIFIED (6) BPH (benign prostatic hyperplasia) Current Visit: Yes Status: Chronic Code(s): N40.0 - BENIGN PROSTATIC HYPERPLASIA WITHOUT LOWER URINRY TRACT SYMP (7) Peripheral neuropathy Current Visit: Yes Status: Chronic Code(s): G62.9 - POLYNEUROPATHY, UNSPECIFIED (8) GERD (gastroesophageal reflux disease) Current Visit: Yes Status: Chronic Code(s): K21.9 - GASTRO-ESOPHAGEAL REFLUX DISEASE WITHOUT ESOPHAGITIS (9) Atrial fibrillation Current Visit: No Status: Chronic Code(s): I48.91 - UNSPECIFIED ATRIAL FIBRILLATION Qualifiers: Atrial fibrillation type: paroxysmal Qualified Code(s): I48.0 - Paroxysmal atrial fibrillation Comment: resume rivaroxaban today (10) Dementia Current Visit: Yes Status: Acute Code(s): F03.90 - UNSPECIFIED DEMENTIA WITHOUT BEHAVIORAL DISTURBANCE - Plan Septic shock 2/2 UTI - 80s/40s, started on levophed (Rt fem central line). WBC elevated, +UA. Given 3L NS. Admitted to ICU - U cx and Blood cx pending (blood cx drawn after abx) - Continue on Vanc and Zosyn 12/25 - LA improved, 3-> 1.6 - Procal pending - Wean levophed as tolerated - Continue MIVF NS @ 100 ml/hr - Strict I/os, daily weights Possible CAP - RLL crackles on exam - CXR stable from September - Treating with Vanc/Zosyn Afib - Seen on EKG, continue to monitor in ICU - Continue amiodarone - Continue home xarelto MONY - Cr elevated - Continue fluids and pressors GERD - Continue home PPI BKA LLE BPH Peripheral neuropathy Dementia - Aware HLD - Aware HTN - Holding home medications as in septic shock Diet: HH Dispo: admit to ICU, LOS >2 midnights DVT ppx: continue home xarelto GI ppx: pantoprazole PCP: JUAN Wilson Code: Chemical code with shock if indicated FMR H&P: Upper Level - Pertinent history 83 yo WM PMH HTN, A-fib, and recent BKA. presents with CC non-productive cough. [facility] Patient denies other symptoms. ER: labs, UA, EKG, CXR, tylenol, vanc, zosyn, NS 2L - Pertinent findings Pulse 106, Temp 100.2F GEN: NAD CV: tachycardic, regular Pulm: crackles right lung base Abd: NTND Labs: UA: LE large, nitrate positive, prot 30, WBC TNTC, RBC 7-10 WBC 16.4, H&H 12.9/40.8, Neutrophil 86. Cr 1.59 CXR: possible right lower lobe infiltrate. read as stable by radiology. EKG: A-fib, rate 103. - Plan Date/Time: 12/25/182146 I, Davion Khan MD, have evaluated this patient and agree with findings/plan as outlined by customer operations intern resident. Pertinent changes/additions are listed here. 1. Septic Shock 2/2 UTI: MAP remained < 60 after 3L fluid. Right femoral line placed in ER and started on levophed which brought MAP in to 70s. Continue Vanc and zosyn. Urine cultures pending. Blood cultures drawn after IV Abx started. Will send to ICU for pressor management. Dr. Hawkins will be notified in the morning of the patient's arrival. 2. Possible CAP vs aspiration PNA: covered by vanc and zosyn 3. MONY: 2/2 #1. IV fluids and pressors. 4. HTN: Hold antihypertensives for now 5. A-fib: continue medications 6. Recent BKA: fall precautions. 7. Diet: HH 8. PPx: fall, xarelto 9. CODE: chemical code with cardioversion if indicated. Dispo: inpatient, ICU, >[address] Aponte.
[2018-12-25 22:23] LABS: Bilirubin Negative (Negative); Blood, Urine Large (Negative); Clarity CLOUDY (Clear); Glucose, Urine (Dipstick) Negative (Negative); Leukocyte Large (Negative); Nitrite Positive (Negative); Protein, Urine (Dipstick) 30 mg/dL (Neg-Trace); Urobilinogen 0.2 mg/dL (0.2-1.0)
[2018-12-25 22:25] LABS: Bacteria/HPF 4+ HPF (None Seen); Hyaline Casts/LPF 0-3 HYALINE CAST LPF (0-3 Hyaline); Pathc Cast-AUWi Flag 0.29 (0-2.49); Squamous Epithelial None Seen HPF (0-3)
[2018-12-25] MEDS ORDERED: Acetaminophen 500 MG TAB ONE (22:40)
[2018-12-25 23:25] LABS: Lactic Acid 1.6 mmol/L (0.5-2.2)
--- NOTE | 2018-12-26 00:16 | PDOC.EVN ---
Event Note - Event Note Event Note: Date/Time: 12/26/18 0014 I personally evaluated the patient and discussed the management with Dr. Sridevi Pathak I agree with the History, Examination, Assessment and Plan documented above with any addition or exceptions noted below - 83 yo male with HTN, HLD, A-fib, mild dementia, osteomyelitis of left foot s/p left BKA, peripheral neuropathy sent from [place] due to cough and low BP readings. Denies any dysuria, hematuria, fever, chills, N/V/D, abdominal pain. PMH/PSH/All/Meds reviewed and agree with resident's documentation. T 100.2 P103 BP 80/49 94% RA Exam repeated by me and agree with resident's findings. Labs: WBC=16.4, H/H=12.9/40.8, Lbg=615, Na= 137, K=4.5, Cl=97, CO2=27, BUN/Cr=21/1.59, ALT/AST=16/17, lactic acid= 3.0 -> 1.6. Flu (-), U/A: large blood, (+) nitrite, large LE, >50 WBC, 2+ bacteria, EKG - Afib with rate =103. A/P: 1) Sepsis secondary to urinary tract infection- Admit to IMCU. Received 3 L NS in ER and now on IVF @150 mL/hr. MAP <65- will place central line and start on pressors. Continue Vanc/Zosyn. Blood, urine cultures obtained. 2) A-fib- may need digoxin for rate control until BP improved. May need to hold amiodarone. Continue eliquis. 3) HTN- hold antihypertensives.
[2018-12-26] MEDS ORDERED: Norepinephrine 8 MG/0.9% NS 250 ML ONE (01:06)
[2018-12-26] MEDS ORDERED: Norepinephrine 8 MG/0.9% NS 250 ML IVPB SCH (01:15)
[2018-12-26] MEDS ORDERED: Acetaminophen 325 MG TAB PO PRN ×2 (02:28→02:42)
[2018-12-26] MEDS ORDERED: Ondansetron ODT 4 MG TAB SL PRN (02:28)
[2018-12-26] MEDS ORDERED: Ondansetron PF 4 MG/2 ML Vial IVP PRN (02:28)
[2018-12-26] MEDS ORDERED: Sodium Chloride 0.9% 1,000 ML IV SCH (02:30)
[2018-12-26] MEDS ORDERED: Acetaminophen 650 MG Suppository PR PRN (02:42)
[2018-12-26] MEDS ORDERED: VANCOMYCIN IVPB PRN (02:49)
[2018-12-26 02:53] VITALS: BMI 23.3
[2018-12-26] MEDS ORDERED: Loperamide HCl 2 MG CAP PO PRN (03:03)
[2018-12-26] MEDS ORDERED: Nystatin Powder 15 GM BOT TOP PRN (03:03)
[2018-12-26] MEDS ORDERED: traMADol HCl 50 MG TAB PO PRN (03:03)
[2018-12-26] MEDS: Sodium Chloride 0.9% 1,000 ML IV SCH ×3 (03:33→20:34)
[2018-12-26 05:04] LABS: Anion Gap 13 mmol/L (10-20); BUN (Urea Nitrogen) 19 mg/dL (8.4-25.7); Calc. Creatinine Clearance 44 mL/min (70-130); Calcium 7.6 mg/dL (7.8-10.44); Carbon Dioxide 23 mmol/L (23-31); Chloride 102 mmol/L (98-107); Estimated GFR-MDRD 50; Glucose 119 mg/dL (83-110); Potassium 3.5 mmol/L (3.5-5.1); Sodium 134 mmol/L (136-145)
[2018-12-26 05:26] LABS: Band 14 % (5-11); Hemoglobin 10.7 g/dL (14.0-18.0); Lymphocytes 3 % (21-51); MDiff Complete? YES; Mean Corpuscular HGB CONC 31.4 g/dL (32.0-36.0); Mean Corpuscular Hemoglobin 29.7 pg (27.0-31.0); Mean Corpuscular Volume 94.6 fL (78.0-98.0); Mean Platelet Volume 8.9 fL (7.4-10.4); Monocytes 3 % (0-10); Myelocyte 1 % (0-0); Neutrophil 79 % (42-75); Platelet Count 169 thou/uL (130-400); RBC Distribution Width 14.1 % (11.5-14.5); Red Blood Cell (RBC) Count 3.59 mill/uL (4.70-6.10); White Blood Cell (WBC) Count 18.2 thou/uL (4.8-10.8)
[2018-12-26] MEDS: Piperacillin/Tazobactam 4.5 GM in Sodium Chloride 0.9% 100 ML IVPB SCH ×2 (06:32→11:23)
--- NOTE | 2018-12-26 06:56 | PDOC.FM ---
- Subjective Subjective: Dileep Peterson is an 83 year old M seen at bedside this morning. Admitted last night for sepsis shock 2/2 UTI. Femoral CVC placed overnight and started on Levophed 2/2 hypotension that did not improve with 3 L of NS boluses. He is doing well this morning, he has no complaints, resting comfortably in bed. BPs are at goal on Levophed ggt. - Objective MAR Reviewed: Yes Vital Signs & Weight: Vital Signs (12 hours) Temp Pulse Ox 12/26/18 06:00 99.1 F 12/26/18 02:45 98 12/26/18 02:30 98.0 F Weight Weight 78.1 kg Most Recent Monitor Data Heart Rate from ECG 108 NIBP 137/96 NIBP BP-Mean 109 Respiration from ECG 23 SpO2 94 I&O: 12/24/18 12/25/18 12/26/18 06:59 06:59 06:59 Intake Total 424.4 Output Total 700 Balance -275.6 Result Diagrams: 12/26/18 04:15 12/26/18 04:15 Radiology Reviewed by me: Yes (stable CXR compared to 10/15/19, elevated L hemidiaphragm) Radiology: possible infiltrate vs atelectasis, stable from previous CXR Phys Exam - Physical Examination Constitutional: NAD HEENT: sclera anicteric dry MMs Neck: no JVD, supple, full ROM mild rales on right greater than left Cardiovascular: RRR, no significant murmur Gastrointestinal: soft, non-tender, no distention, positive bowel sounds Musculoskeletal: no edema, pulses present Psychiatric: normal affect, A&O x 3 Skin: no rash, normal turgor, cap refill <2 seconds Dx/Plan (1) Septic shock Code(s): A41.9 - SEPSIS, UNSPECIFIED ORGANISM; R65.21 - SEVERE SEPSIS WITH SEPTIC SHOCK Status: Acute (2) UTI (urinary tract infection) Status: Acute (3) MONY (acute kidney injury) Code(s): N17.9 - ACUTE KIDNEY FAILURE, UNSPECIFIED Status: Acute (4) CAP (community acquired pneumonia) Code(s): J18.9 - PNEUMONIA, UNSPECIFIED ORGANISM Status: Suspected (5) Hx of BKA Code(s): Z89.519 - ACQUIRED ABSENCE OF UNSPECIFIED LEG BELOW KNEE Status: Chronic (6) Dementia Code(s): F03.90 - UNSPECIFIED DEMENTIA WITHOUT BEHAVIORAL DISTURBANCE Status: Acute (7) HLD (hyperlipidemia) Code(s): E78.5 - HYPERLIPIDEMIA, UNSPECIFIED Status: Chronic (8) Atrial fibrillation Code(s): I48.91 - UNSPECIFIED ATRIAL FIBRILLATION Status: Chronic Qualifiers: Atrial fibrillation type: paroxysmal Qualified Code(s): I48.0 - Paroxysmal atrial fibrillation - Plan Plan: 1. Septic Shock: 2/2 UTI - UA showed positive nitrites, large leuk est, >50 WBCs, 4+ bacteria, WBC 18.2 with 79% PMNs and 14% bands - MAP remained < 60 after 3L fluid. S/p Right Femoral CVC on levophed ggt, MAPs adequate since that time - Pt remains dry, currently on maintenance fluids, will bolus an additional 1 L of LR. Continue maintenance IVFs after. - Continue Vanc and zosyn. - Urine cultures pending-drawn at [place]. Blood cultures drawn after IV Abx started. - Dr. Hawkins has been consulted for CCU management 2. Possible CAP vs aspiration PNA: - Low suspicion to due urine as obvious source - CXR stable findings compared to CXR from 10/15/19 - Regardless, covered by vanc and zosyn 3. MONY: - 2/2 #1. - IV fluids and Levophed ggt - monitor/trend UO and BMPs 4. HTN: - Hold antihypertensives for now 5. A-fib: - Currently in A fib, rate controlled - continue home medications, Amiodarone and Xarelto 6. Recent BKA: - fall precautions. Addendum - Attending - Attending Attestation Date/Time: 12/26/18 9557 I personally evaluated the patient and discussed the management with Dr. Anaya. I agree with the History, Examination, Assessment and Plan documented above with any addition or exceptions noted below. Septic shock from UTI- continue Zosyn and levophed gtt to keep MAP >65. MONY- trend. Improved after fluid bolus Afib- rate controlled at this time.
[2018-12-26] MEDS: Amiodarone 200 MG TAB PO SCH (08:23)
[2018-12-26] MEDS: Saccharomyces boulardii 250 MG CAP PO SCH (08:23)
[2018-12-26] MEDS: Ascorbic Acid 500 mg Chewable Tablet PO SCH (08:23)
[2018-12-26] MEDS: Tamsulosin HCl 0.4 MG CAP PO SCH (08:23)
[2018-12-26] MEDS ORDERED: Lactated Ringer's 1,000 ML IV SCH (09:30)
--- NOTE | 2018-12-26 10:09 | CON ---
DATE OF CONSULTATION: 12/26/2018 SERVICE: Pulmonary Medicine. REASON FOR CONSULTATION: Septic shock. HISTORY OF PRESENT ILLNESS: The patient is an 83-year-old white male with past medical history significant for BPH. He presented to the hospital because apparently he got weak and had a fall. He does not have any focalizing symptoms. He denies any dysuria, frequency, fevers, chills, nausea, or vomiting. He has been having diarrhea for couple of days. He presented to the emergency department and was found to be hypotensive. He had sludge coming out of his urine. Ultimately , he was put on empiric antibiotics. Despite 3 L of fluid, he remained hypotensive. As such, a femoral line was placed, and he was initiated on low doses of pressors. He cannot provide any additional elements of the history. Overnight, he feels a little bit better. His urine output has been adequate. PAST MEDICAL HISTORY: 1. BPH. 2. Atrial fibrillation, paroxysmal. 3. Peripheral neuropathy. 4. Dyslipidemia. 5. Hypertension. 6. Dementia. 7. Gastroesophageal reflux disease. 8. Peripheral neuropathy. PAST SURGICAL HISTORY: 1. Left below-knee amputation. 2. Appendectomy. FAMILY HISTORY: Noncontributory. SOCIAL HISTORY: Negative for alcohol, tobacco, or illicit drug use. He currently lives in a nursing facility. He is essentially confined to a bed or a chair because of his amputation status. 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 ALLERGIES: NO KNOWN DRUG ALLERGIES. MEDICATIONS: List of his inpatient medications was reviewed. No specific updates were made at this time. REVIEW OF SYSTEMS: General, head, ears, eyes, nose, throat, cardiovascular, respiratory, GI, , musculoskeletal, neurologic, and skin are negative except as mentioned in the HPI. PHYSICAL EXAMINATION: VITAL SIGNS: Afebrile, pulse 84, blood pressure 97/50, respirations 31, and saturation 99% on room air. GENERAL: The patient is awake and alert, in no apparent distress. LUNGS: Excellent air entry. There is no prolonged expiratory phase or wheezing. I do not appreciate any crackles in the dependent regions. HEART: Normal rate. Irregular. ABDOMEN: Soft, nontender, and nondistended. Bowel sounds are positive. MUSCULOSKELETAL: No cyanosis or clubbing. There is no pitting in the bilateral lower extremities. NEUROLOGIC: Grossly nonfocal. He has skin tenting throughout. LABORATORY DATA: WBC 18.2, hemoglobin 10.7, platelets 169,000. Creatinine downtrending to 1.37, which is above baseline of 0.9. Liver function studies were unremarkable. Lactate was originally 3.0, but has come down to 1.6. Urinalysis is positive for significant pyuria. Influenza A and B are unremarkable. ASSESSMENT: 1. Septic shock. 2. Urinary tract infection. 3. BPH. 4. Atrial fibrillation, currently rate controlled. DISCUSSION AND PLAN: The patient is still clinically dry. As such, given a liter of fluid, we will switch his maintenance fluids over to half-normal saline as he has very severe skin tenting, dry mucous membranes. Once he is off the Levophed, we can consider transitioning him out of the ICU to the medical unit. We will need to workup why this gentleman is getting a urinary tract infection. There may be a procedure that can be offered to prevent the next episode of this from happening. Cultures are currently pending. Empiric antibiotics will be continued, directing a pathology. The Zosyn at this point should be more than adequate. 70 minutes have been devoted to this patient in various activities. I personally reviewed all imaging studies and laboratory data noted within this document. For fifty percent of this time, I was interacting with the patient at the bedside or coordinating care with the care team. For the remainder of the time I was immediately available to the patient in the hospital unit. Job ID: [id number] MTDD
[2018-12-26] MEDS ORDERED: Meropenem 1 GM in Sodium Chloride 0.9% 100 ML IVPB SCH (15:00)
[2018-12-26] MEDS ORDERED: Vancomycin HCl 1.25 GM in Sodium Chloride 0.9% 250 ML 250 ML IVPB SCH (15:00)
[2018-12-26] MEDS ORDERED: MEROPENEM 1 GM/50 ML 1 GM in Premix Bag 1 BAG IVPB SCH (15:00)
[2018-12-26] MEDS: MEROPENEM 1 GM/50 ML 1 GM in Premix Bag 1 BAG IVPB SCH (15:21)
[2018-12-26] MEDS: Rivaroxaban 15 MG TAB PO SCH (16:25)
[2018-12-26] MEDS ORDERED: Rivaroxaban 10 MG TAB PO SCH (17:00)
[2018-12-27] MEDS: MEROPENEM 1 GM/50 ML 1 GM in Premix Bag 1 BAG IVPB SCH (03:00)
[2018-12-27 05:16] LABS: Phosphorus 2.7 mg/dL (2.3-4.7)
[2018-12-27 05:18] LABS: Anion Gap 11 mmol/L (10-20); BUN (Urea Nitrogen) 16 mg/dL (8.4-25.7); Calc. Creatinine Clearance 50 mL/min (70-130); Calcium 7.9 mg/dL (7.8-10.44); Carbon Dioxide 24 mmol/L (23-31); Chloride 106 mmol/L (98-107); Estimated GFR-MDRD 57; Glucose 85 mg/dL (83-110); Magnesium 1.5 mg/dL (1.6-2.6); Potassium 3.5 mmol/L (3.5-5.1); Sodium 137 mmol/L (136-145)
[2018-12-27 05:20] LABS: Band 16 % (5-11); Eosinophils 1 % (0-10); Hemoglobin 10.4 g/dL (14.0-18.0); Lymphocytes 4 % (21-51); MDiff Complete? YES; Mean Corpuscular HGB CONC 31.8 g/dL (32.0-36.0); Mean Corpuscular Volume 94.4 fL (78.0-98.0); Mean Platelet Volume 9.4 fL (7.4-10.4); Monocytes 7 % (0-10); Neutrophil 72 % (42-75); Platelet Count 165 thou/uL (130-400); Platelet Morphology Comment Appears Adequate; RBC Distribution Width 14.2 % (11.5-14.5); Red Blood Cell (RBC) Count 3.45 mill/uL (4.70-6.10)
--- NOTE | 2018-12-27 05:35 | PDOC.FM ---
- Subjective Subjective: Dileep Peterson seen at bedside this morning. He is doing well, he has no complaints. He was weaned off levophed ggt 12/26/18 early afternoon. His BPs have remained stable since that time. Preliminary blood and urine cultures have returned showed ESBL E. coli and he was changed from zosyn to meropenem on 12/26/18 as well. He denies any fever, chills, chest pain, dyspnea, abdominal pain, n/v. - Objective MAR Reviewed: Yes Vital Signs & Weight: Vital Signs (12 hours) Temp Pulse Ox 12/27/18 00:00 98.4 F 12/26/18 20:00 100.1 F H 100 Weight Weight 78.1 kg Most Recent Monitor Data Heart Rate from ECG 78 NIBP 120/73 NIBP BP-Mean 88 Respiration from ECG 28 SpO2 98 I&O: 12/25/18 12/26/18 12/27/18 06:59 06:59 06:59 Intake Total 424.4 4473 Output Total 700 2075 Balance -275.6 2398 Result Diagrams: 12/27/18 04:09 12/27/18 04:09 Phys Exam - Physical Examination Constitutional: NAD HEENT: moist MMs, sclera anicteric Neck: supple, full ROM Respiratory: no wheezing, no rales, no rhonchi, clear to auscultation bilateral Cardiovascular: RRR, no significant murmur Gastrointestinal: soft, non-tender, no distention Musculoskeletal: no edema, pulses present Neurological: non-focal, normal sensation, moves all 4 limbs Psychiatric: normal affect, A&O x 3 Skin: no rash, cap refill <2 seconds Dx/Plan (1) Septic shock Code(s): A41.9 - SEPSIS, UNSPECIFIED ORGANISM; R65.21 - SEVERE SEPSIS WITH SEPTIC SHOCK Status: Resolved (2) UTI (urinary tract infection) Status: Acute (3) MONY (acute kidney injury) Code(s): N17.9 - ACUTE KIDNEY FAILURE, UNSPECIFIED Status: Resolved (4) CAP (community acquired pneumonia) Code(s): J18.9 - PNEUMONIA, UNSPECIFIED ORGANISM Status: Suspected (5) Hx of BKA Code(s): Z89.519 - ACQUIRED ABSENCE OF UNSPECIFIED LEG BELOW KNEE Status: Chronic (6) Dementia Code(s): F03.90 - UNSPECIFIED DEMENTIA WITHOUT BEHAVIORAL DISTURBANCE Status: Acute (7) HLD (hyperlipidemia) Code(s): E78.5 - HYPERLIPIDEMIA, UNSPECIFIED Status: Chronic (8) Atrial fibrillation Code(s): I48.91 - UNSPECIFIED ATRIAL FIBRILLATION Status: Chronic Qualifiers: Atrial fibrillation type: paroxysmal Qualified Code(s): I48.0 - Paroxysmal atrial fibrillation - Plan Plan: 1. Septic Shock: 2/2 UTI, resolved - UA showed positive nitrites, large leuk est, >50 WBCs, 4+ bacteria, WBC 18.2 with 79% PMNs and 14% bands - MAP remained < 60 after 3L fluid. S/p Right Femoral CVC. Levophed ggt d/c'd on 12/26/18, BPs stable since that time - s/p 4 L boluses IVFs. Continue maintenance IVFs. - Continue Meropenem. - Urine cultures pending-drawn at [place]. Blood cultures drawn after IV Abx started. - Dr. Hawkins has been consulted for CCU management - 2) UTI: - Blood and urine culture show presumptive E. coli ESBL, may consult ID - Continue Meropenem 3. Possible CAP vs aspiration PNA: - Low suspicion to due urine as obvious source - CXR stable findings compared to CXR from 10/15/19 - Regardless, covered by vanc and zosyn 4. MOYN: - 2/2 #1. - IV fluids and Levophed ggt - monitor/trend UO and BMPs 5. HTN: - Hold antihypertensives for now 6. A-fib: - Currently in A fib, rate controlled - continue home medications, Amiodarone and Xarelto 7. Recent BKA: - fall precautions. Addendum - Attending - Attending Attestation Date/Time: 12/27/18 4009 I personally evaluated the patient and discussed the management with Dr. Anaya. I agree with the History, Examination, Assessment and Plan documented above with any addition or exceptions noted below. The patient is sitting up eating breakfast. His heart rate is jumping into the 150-160's and then back into the 80's. Pt asymptomatic. He is due for amiodarone and we will give the dose now. Can likely transfer to the floor. Waiting on sensitivites of urine culture.
[2018-12-27] MEDS: Sodium Chloride 0.9% 1,000 ML IV SCH (06:22)
[2018-12-27] MEDS: Saccharomyces boulardii 250 MG CAP PO SCH (09:20)
[2018-12-27] MEDS: Magnesium Oxide 400 MG TAB PO SCH ×2 (09:20→22:25)
[2018-12-27] MEDS: Tamsulosin HCl 0.4 MG CAP PO SCH (09:20)
[2018-12-27] MEDS: Ascorbic Acid 500 mg Chewable Tablet PO SCH (09:20)
[2018-12-27] MEDS: Amiodarone 200 MG TAB PO SCH (09:20)
[2018-12-27] MEDS ORDERED: Magnesium Sulfate 4 GM in Sodium Chloride 0.9% 250 ML 250 ML IVPB SCH (11:30)
--- NOTE | 2018-12-27 11:47 | PRG ---
DATE OF SERVICE: 12/27/2018 SERVICE: Pulmonary Medicine. INTERVAL HISTORY: The patient is doing great from respiratory standpoint. Breathing comfortably. Denies any current chest pain, fevers, or chills. Otherwise, his blood pressures have firmed up very nicely. He had no overnight events. PHYSICAL EXAMINATION: VITAL SIGNS: Afebrile, pulse 71, blood pressure 117/82, respirations 24, saturation 100% on room air. GENERAL: The patient is awake and alert, in no apparent distress. LUNGS: Excellent air entry. I do not appreciate any prolonged expiratory phase, wheezing, or crackles. HEART: Normal rate and regular. ABDOMEN: Soft, nontender, nondistended. Bowel sounds are positive. MUSCULOSKELETAL: No cyanosis or clubbing. No pitting in the bilateral lower extremities. SKIN: Tenting is improved. GENITOURINARY: Kaur catheter in place. NEUROLOGIC: Grossly nonfocal. LABORATORY DATA: WBC 14.0, hemoglobin 10.4, and platelets 165,000, band count is 16% on top of 72% neutrophils. Basic metabolic profile is otherwise unremarkable. Creatinine is downtrending, magnesium 1.5. Phosphorus falls within normal limits. Procalcitonin is quite elevated. Urine culture is growing E coli which appears to be sensitive to the fluoroquinolones. It originally was reported as ESBL, but appears to be sensitive to Zosyn. It is certainly exquisitely sensitive to meropenem. ASSESSMENT: 1. Septic shock, resolved. 2. Complicated urinary tract infection secondary to Escherichia coli. 3. Benign prostatic hypertrophy. 4. Atrial fibrillation, currently rate controlled. DISCUSSION AND PLAN: We will replace the potassium and magnesium today. From my perspective, he is stable for transition to the medical unit. He had a run of asymptomatic tachyarrhythmia that was irregular. He remains clinically dry. Since he is taking a little bit of p.o., we will continue gentle IV hydration at 50 mL/hour. That being said, I will introduce a touch of free water. Pulmonary Critical Care will continue to follow along for the time being. From my perspective, we can put him on Cipro and discontinue our contact precautions. Job ID: [id number]
[2018-12-27] MEDS: Sodium Chloride 0.45% 1,000 ML IV SCH (12:30)
[2018-12-27] MEDS: Rivaroxaban 15 MG TAB PO SCH (17:48)
[2018-12-28] MEDS: Sodium Chloride 0.45% 1,000 ML IV SCH ×4 (03:28→21:16)
--- NOTE | 2018-12-28 05:48 | PDOC.FM ---
- Subjective Subjective: Dileep Peterson seen at bedside this morning. 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 He remains in A fib, rate controlled. He has no complaints this morning. Denies fever, chills, chest pain, dyspnea, n/v, abdominal pain. Was switched IV ciprofloxacin on 12/27. - Objective MAR Reviewed: Yes Vital Signs & Weight: Vital Signs (12 hours) Temp Pulse Ox 12/28/18 04:00 98.7 F 12/28/18 00:00 98.9 F 12/27/18 20:00 99.2 F 99 Weight Weight 78.1 kg Most Recent Monitor Data Heart Rate from ECG 65 NIBP 134/73 NIBP BP-Mean 93 Respiration from ECG 19 SpO2 96 I&O: 12/26/18 12/27/18 12/28/18 06:59 06:59 06:59 Intake Total 424.4 5609 2893 Output Total 700 2625 2355 Balance -275.6 2984 538 Result Diagrams: 12/28/18 07:49 12/27/18 04:09 Phys Exam - Physical Examination Constitutional: NAD HEENT: sclera anicteric MM are less dry Neck: supple, full ROM Respiratory: no wheezing, no rales, no rhonchi, clear to auscultation bilateral Cardiovascular: RRR, no significant murmur Gastrointestinal: soft, non-tender, no distention Musculoskeletal: no edema, pulses present Neurological: non-focal, normal sensation, moves all 4 limbs Psychiatric: normal affect, A&O x 3 Skin: no rash, cap refill <2 seconds Dx/Plan (1) Septic shock Code(s): A41.9 - SEPSIS, UNSPECIFIED ORGANISM; R65.21 - SEVERE SEPSIS WITH SEPTIC SHOCK Status: Resolved (2) UTI (urinary tract infection) Status: Acute (3) MONY (acute kidney injury) Code(s): N17.9 - ACUTE KIDNEY FAILURE, UNSPECIFIED Status: Resolved (4) CAP (community acquired pneumonia) Code(s): J18.9 - PNEUMONIA, UNSPECIFIED ORGANISM Status: Suspected (5) Hx of BKA Code(s): Z89.519 - ACQUIRED ABSENCE OF UNSPECIFIED LEG BELOW KNEE Status: Chronic (6) Dementia Code(s): F03.90 - UNSPECIFIED DEMENTIA WITHOUT BEHAVIORAL DISTURBANCE Status: Acute (7) HLD (hyperlipidemia) Code(s): E78.5 - HYPERLIPIDEMIA, UNSPECIFIED Status: Chronic (8) Atrial fibrillation Code(s): I48.91 - UNSPECIFIED ATRIAL FIBRILLATION Status: Chronic Qualifiers: Atrial fibrillation type: paroxysmal Qualified Code(s): I48.0 - Paroxysmal atrial fibrillation - Plan Plan: 1. Septic Shock: 2/2 UTI, resolved - UA showed positive nitrites, large leuk est, >50 WBCs, 4+ bacteria, WBC 18.2 with 79% PMNs and 14% bands - MAP remained < 60 after 3L fluid. S/p Right Femoral CVC. Levophed ggt d/c'd on 12/26/18, BPs stable since that time - s/p 4 L boluses IVFs. Continue maintenance IVFs. - Meropenem switched to ciprofloxacin after sensitivities returned - Urine cultures-drawn at [place]. Blood cultures drawn after IV Abx started. Both grew E. coli - Ready to be transferred out of ICU as soon as room is available 2) UTI: - Blood and urine culture shows E. coli, sens to meropenem, zosyn, and cipro - Continue Ciprofloxacin 3) MONY: resolved - 2/2 #1. - continue gentle IV fluids - monitor/trend UO and BMPs 4) HTN: - Hold antihypertensives for now 5) A-fib: - Currently in A fib, rate controlled - continue home medications, Amiodarone and Xarelto 6) Recent BKA: - fall precautions. Addendum - Attending - Attending Attestation Date/Time: 12/28/18 1254 I personally evaluated the patient and discussed the management with Dr. Anaya. I agree with the History, Examination, Assessment and Plan documented above with any addition or exceptions noted below. The patient is doing well this morning. Waiting on a medical bed. Will continue to follow heart rate. Pt is on cipro, will transition to PO.
[2018-12-28] MEDS: Saccharomyces boulardii 250 MG CAP PO SCH (08:38)
[2018-12-28] MEDS: Tamsulosin HCl 0.4 MG CAP PO SCH (08:38)
[2018-12-28] MEDS: Amiodarone 200 MG TAB PO SCH (08:38)
[2018-12-28] MEDS: Magnesium Oxide 400 MG TAB PO SCH (08:38)
[2018-12-28 08:45] LABS: Band 5 % (5-11); Hemoglobin 10.2 g/dL (14.0-18.0); Lymphocytes 8 % (21-51); MDiff Complete? YES; Mean Corpuscular HGB CONC 31.4 g/dL (32.0-36.0); Mean Corpuscular Hemoglobin 29.5 pg (27.0-31.0); Mean Platelet Volume 9.1 fL (7.4-10.4); Monocytes 5 % (0-10); Neutrophil 82 % (42-75); Platelet Count 195 thou/uL (130-400); RBC Distribution Width 14.4 % (11.5-14.5); Red Blood Cell (RBC) Count 3.47 mill/uL (4.70-6.10); White Blood Cell (WBC) Count 11.9 thou/uL (4.8-10.8)
--- NOTE | 2018-12-28 12:14 | PRG ---
DATE OF SERVICE: 12/28/2018 SERVICE: Pulmonary Medicine. INTERVAL HISTORY: The patient is doing fine from respiratory standpoint. Breathing comfortably. Denies any current chest pain, fevers, or chills. Otherwise, breathing is doing fantastic. His mentation is much improved today. He knows where he is or what the situation is. He is telling me all about the books that he has been reading here recently. PHYSICAL EXAMINATION: VITAL SIGNS: Afebrile, pulse 68, blood pressure 134/74, respirations 21, saturation 98% on 2 L nasal cannula. GENERAL: The patient is awake and alert, in no apparent distress. LUNGS: Very good air entry without any prolonged expiratory phase or wheezing. HEART: Normal rate. Regular. ABDOMEN: Soft, nontender, nondistended. Bowel sounds are positive. MUSCULOSKELETAL: No cyanosis or clubbing. No pitting in the bilateral lower extremities. NEUROLOGIC: Grossly nonfocal. LABORATORY DATA: WBC 11.9, hemoglobin 10.2, and platelets 195,000. Neutrophil count has improved to 82% on top of 5% bands. Creatinine has downtrended to 1.22. Phosphorus falls within normal limits. E. coli is growing in the urine culture. It is also growing in 2 out of 2 blood cultures. The resistance profiles are the same. ASSESSMENT: 1. Septic shock, resolved. 2. Complicated urinary tract infection secondary to Escherichia coli. 3. Bacteremia secondary to Escherichia coli. 4. Benign prostatic hypertrophy. 5. Atrial fibrillation, currently rate controlled. DISCUSSION AND PLAN: The patient remains stable for transition out of the ICU. His encephalopathy has cleared. He is having intermittent episodes of irregular tachyarrhythmias. He remains a little dry, although this has improved significantly. We will continue IV fluids over the next 24 hours. He can likely be converted over to p.o. Cipro. He will need to continue these medications for full duration of 14 days. Urology consultation should be considered as the patient has severe BPH with a life-threatening infection. I would like to try to prevent the next one of these things from occurring. Job ID: [id number]
[2018-12-28] MEDS: Rivaroxaban 15 MG TAB PO SCH (17:01)
--- NOTE | 2018-12-29 06:51 | PDOC.FM ---
- Subjective Subjective: Seen at bedside this morning resting comfortably and in no acute distress. No acute events over night. No new complaints - Objective MAR Reviewed: Yes Vital Signs & Weight: Vital Signs (12 hours) Temp Pulse Ox 12/29/18 04:00 98.5 F 12/29/18 00:00 98.6 F 100 12/28/18 20:00 98.8 F 96 Weight Admit Weight 78.1 kg Weight 81.4 kg Most Recent Monitor Data Heart Rate from ECG 75 NIBP 147/86 NIBP BP-Mean 106 Respiration from ECG 23 SpO2 95 I&O: 12/27/18 12/28/18 12/29/18 06:59 06:59 06:59 Intake Total 5602 8609 1822 Output Total 2625 9317 1417 Balance 2984 1514 -813 Result Diagrams: 12/28/18 07:49 12/27/18 04:09 Phys Exam - Physical Examination Constitutional: NAD HEENT: moist MMs Neck: no JVD Respiratory: clear to auscultation bilateral Cardiovascular: RRR, no significant murmur Gastrointestinal: soft, non-tender, no distention Musculoskeletal: no edema Neurological: non-focal, moves all 4 limbs Psychiatric: normal affect, A&O x 3 Skin: no rash Dx/Plan (1) Bacteremia Code(s): R78.81 - BACTEREMIA Status: Acute (2) UTI (urinary tract infection) Status: Acute (3) BPH (benign prostatic hyperplasia) Code(s): N40.0 - BENIGN PROSTATIC HYPERPLASIA WITHOUT LOWER URINRY TRACT SYMP Status: Chronic (4) GERD (gastroesophageal reflux disease) Code(s): K21.9 - GASTRO-ESOPHAGEAL REFLUX DISEASE WITHOUT ESOPHAGITIS Status: Chronic (5) HLD (hyperlipidemia) Code(s): E78.5 - HYPERLIPIDEMIA, UNSPECIFIED Status: Chronic (6) HTN (hypertension) Code(s): I10 - ESSENTIAL (PRIMARY) HYPERTENSION Status: Chronic (7) Hx of BKA Code(s): Z89.519 - ACQUIRED ABSENCE OF UNSPECIFIED LEG BELOW KNEE Status: Chronic (8) MONY (acute kidney injury) Code(s): N17.9 - ACUTE KIDNEY FAILURE, UNSPECIFIED Status: Resolved (9) Atrial fibrillation Code(s): I48.91 - UNSPECIFIED ATRIAL FIBRILLATION Status: Chronic Qualifiers: Atrial fibrillation type: paroxysmal Qualified Code(s): I48.0 - Paroxysmal atrial fibrillation - Plan Plan: 1. Septic Shock: 2/2 UTI, resolved - Cipro sensitive UTI in urine and blood - Consider stopping IVF today depending on PO - Continue IV abx, start PO tomorrow. Total course 14 days, today is day 2 of Cipro - Ready to be transferred out of ICU as soon as room is available 2. UTI: - as above - Likely secondary to BPH, will ask for Urology to follow outpatient 3. MONY: resolved - Consider stopping IVF today if PO intake is good 4. HTN: - Controlled, will consider restarting home meds today 5. A-fib: - Currently in A fib, rate controlled - continue home medications, Amiodarone and Xarelto 6. Recent BKA: - fall precautions. Dispo: patient doing well overall and currently stable. Likely ready to dc in the next 1-2 days Addendum - Attending - Attending Attestation Date/Time: 12/29/18 9804 I personally evaluated the patient and discussed the management with Dr. Dotson I agree with the History, Examination, Assessment and Plan documented above with any addition or exceptions noted below- Patient sitting up in chair eating breakfast. Denies any complaints. Wants to get back to SNF. Afebrile VSS Exam repeated by me and agree with resident's findings. A/P: 1) Sepsis secondary to E. coli UTI- much improved. Off pressors. Good urine output. Will heplock IVF and transition to po ciprofloxacin. Stable to transfer to floor when bed available. 2) BPH- will consult urology; continue laughlin. 3) S/P BKA - continue transfers and plan to return back to SNF for further therapy.
[2018-12-29] MEDS ORDERED: Ciprofloxacin 500 MG TAB PO SCH (09:00)
[2018-12-29] MEDS: Saccharomyces boulardii 250 MG CAP PO SCH (09:40)
[2018-12-29] MEDS: Amiodarone 200 MG TAB PO SCH (09:41)
[2018-12-29] MEDS: Tamsulosin HCl 0.4 MG CAP PO SCH (09:41)
[2018-12-29 16:15] VITALS: BP 145/82
[2018-12-29] MEDS: Rivaroxaban 15 MG TAB PO SCH (16:54)
--- NOTE | 2018-12-29 17:37 | CT ---
CT ABDOMEN AND PELVIS WITHOUT CONTRAST: Date: 12/29/18 HISTORY: Sepsis. Urinary tract infection. COMPARISON: CT abdomen from 2009. FINDINGS: There is fibrosis in both lower lobes. There is bronchiectasis in both lower lobes with early honeyco mbing. Small effusions. Dense coronary artery calcifications. Trace pericardial fluid. There is a partially calcified mass within the proximal small bowel mesentery with some desmoplastic reaction of the adjacent mesentery. This mass measures 3.1 x 2.6 x 3.1 cm. There is a hypodense mass poorly visualized of hepatic segment VII, series 2, image 22, measuring 3.0 cm in size. There is a left-sided indirect inguinal hernia containing sigmoid colon with small volume fluid withi n the hernia sac. There are advanced degenerative facet changes of the lower lumbar spine. There is no nephroureterolithiasis or hydroureteronephrosis. No secondary evidence of a recently pass ed stone. The aortoiliac contour is nonaneurysmal. IMPRESSION: 1. 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 The primary bowel malignancy is not well s een. 2. Low density mass in hepatic segment VII measuring 3.1 cm in size. This is new from 2014, concerni ng for metastatic focus. 3. Evaluation for a carcinoid tumor can be done with a multiphase MRI of the abdomen with enteric wa ter. In addition, an Indium-111 octreotide study can be performed. 4. Pulmonary findings suggestive of pulmonary fibrosis. 5. Small left pleural effusion. 6. Left-sided indirect inguinal hernia containing sigmoid colon with small volume fluid within the h ernia sac. Surgical consultation advised. 7. No nephroureterolithiasis or hydroureteronephrosis. 8. No secondary evidence of a recently passed stone. POS: [facility]
--- NOTE | 2018-12-29 19:35 | PRG ---
DATE OF SERVICE: 12/29/2018 SUBJECTIVE: Dileep Peterson has no new complaints. He has poor recollection of the events surrounding this admission. All he says is that he wants to get into assisted living. OBJECTIVE: VITAL SIGNS: He is afebrile. Intake and output is -813. Vital signs have been stable. LUNGS: Clear. HEART: Regular rhythm. S1, S2 normal. ABDOMEN: Soft. EXTREMITIES: Without asymmetry. NEURO: Grossly nonfocal. LABORATORY DATA: No new lab today. IMPRESSION: Urinary tract sepsis. No obstructing stones were identified. We will continue antimicrobial therapy. Job ID: [id number]
[2018-12-29] MEDS ORDERED: Cipro 250 MG TAB PO SCH (20:00)
[2018-12-29] MEDS: Ciprofloxacin 500 MG TAB PO SCH (20:05)
--- NOTE | 2018-12-30 01:50 | CON ---
DATE OF CONSULTATION: 12/29/2018 REASON FOR CONSULTATION: Sepsis secondary to urinary tract infection, BPH. 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 The patient presented from [facility] for hypotension and signs and symptoms of urinary tract infection. The patient was found to have an elevated white blood cell count of 15.4. He became hypotensive when evaluated in the emergency department with systolics in the 80s. The patient had a urinalysis consistent with urinary tract infection. He was admitted to the ICU and started on pressors and broad-spectrum antibiotics. A Kaur catheter was placed with an unclear amount of residual. Clinically, the patient has improved. His Kaur catheter has been draining well. Urology was consulted for further evaluation. Leading up to this, the patient states that he has had urinary frequency as well as nocturia up to 3-4 times a night. The patient has remote history of BPH, but denies ever having any procedure done on the prostate. He states that he does not take any medications for the prostate. He is not currently under the care of urologist. No gross hematuria. No recurrent urinary tract infections. No history of any kidney stones. No other complaints. REVIEW OF SYSTEMS: Full 12-point review of systems was performed and is negative other than that mentioned in HPI. PAST MEDICAL HISTORY: Hypertension, atrial fibrillation, peripheral neuropathy, left [id number] amputation, hyperlipidemia, BPH, and GERD, and dementia. PAST SURGICAL HISTORY: Appendectomy and left BKA. FAMILY HISTORY: Noncontributory. SOCIAL HISTORY: No alcohol, tobacco, or illicit drugs. 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 MEDICATIONS: 1. Protonix. 2. Xarelto. 3. Torsemide. 4. Benazepril. 5. Vitamin C. 6. Amiodarone. 7. Vitamin D3. 8. Tamsulosin. 9. Loperamide. 10. Tramadol. 11. Nystatin powder. ALLERGIES: NO KNOWN DRUG ALLERGIES. PHYSICAL EXAMINATION: VITAL SIGNS: Temperature is 98, pulse 74, respirations 17, blood pressure 145/82, oxygen saturation 96% on room air. GENERAL: He is awake and alert, in no apparent distress. HEENT: Normocephalic, atraumatic. NECK: Supple. No masses or lymphadenopathy. CARDIOVASCULAR: Regular rate and rhythm. PULMONARY: Breathing unlabored. No wheezing. ABDOMEN: Soft, nontender/nondistended. No masses or organomegaly. No suprapubic tenderness to palpation. No CVA tenderness. GENITOURINARY: Circumcised penis without concerning lesion. Mild penoscrotal edema. Testes palpably normal bilaterally. Kaur catheter in place draining clear yellow urine. EXTREMITIES: Left BKA. Otherwise, warm and well perfused. No edema. NEUROLOGIC: No focal deficits. LABORATORY DATA: White blood cell count 11.9, hemoglobin 10.2, hematocrit 32.6, platelets 195. Sodium 137, potassium 3.5, chloride 106, bicarb 26, BUN 16, creatinine 1.22. Urine culture and blood culture from 12/25/2018 grew multi-drug resistant E coli, sensitive to amikacin, cefoxitin, Cipro, Levaquin, meropenem, and Zosyn. RADIOLOGY DATA: CT of the abdomen and pelvis demonstrates no significant hydroureteronephrosis. There is no stone. There are findings consistent with a proximal small bowel mesentery mass approximately 3 cm in diameter. There is also a left indirect inguinal hernia. ASSESSMENT: An 83-year-old male with sepsis secondary to urinary tract infection, benign prostatic hypertrophy. PLAN: I reviewed the natural history of complicated urinary tract infections in males with the patient in detail. His Kaur catheter is currently in place and is draining well. It is unclear how much the patient was retaining at the time this was placed. Per the primary team, the patient is planning for discharge tomorrow. I ordered a CT of his abdomen and pelvis to ensure that there was no obstructing stone or hydroureteronephrosis. 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 From urologic standpoint, the patient is to stay on his tamsulosin, his Kaur catheter can stay in place at the time he is discharged, and he can follow up with Urology for a voiding trial. Further workup of the other findings in the CT per primary team. Although, the patient reports that he was not taking any medications for BPH, it does appear upon review of the chart that he is taking tamsulosin at his facility and this should be continued at the time of his discharge. Job ID: [id number]
[2018-12-30 04:37] LABS: #Eosinphils 0.2 thou/uL (0.0-0.7); #Lymphocytes 0.8 thou/uL (1.20-3.40); #Monocytes 0.8 thou/uL (0.11-0.59); #Neutrophils 6.7 thou/uL (1.40-6.50); %Eosinophils 2.5 % (0.0-10.0); %Lymphocytes 9.4 % (21.0-51.0); %Monocytes 9.9 % (0.0-10.0); %Neutrophils 78.3 % (42.0-75.0); Hemoglobin 10.5 g/dL (14.0-18.0); Mean Corpuscular HGB CONC 31.3 g/dL (32.0-36.0); Mean Corpuscular Hemoglobin 29.2 pg (27.0-31.0); Mean Corpuscular Volume 93.3 fL (78.0-98.0); Mean Platelet Volume 8.4 fL (7.4-10.4); Platelet Count 280 thou/uL (130-400); RBC Distribution Width 14.3 % (11.5-14.5); Red Blood Cell (RBC) Count 3.61 mill/uL (4.70-6.10); White Blood Cell (WBC) Count 8.5 thou/uL (4.8-10.8)
[2018-12-30 04:55] LABS: Anion Gap 10 mmol/L (10-20); BUN (Urea Nitrogen) 11 mg/dL (8.4-25.7); Calc. Creatinine Clearance 64 mL/min (70-130); Carbon Dioxide 27 mmol/L (23-31); Chloride 106 mmol/L (98-107); Estimated GFR-MDRD 72; Glucose 88 mg/dL (83-110); Sodium 139 mmol/L (136-145)
[2018-12-30] MEDS: Ciprofloxacin 500 MG TAB PO SCH (05:50)
--- NOTE | 2018-12-30 06:57 | PDOC.FM ---
- Subjective Subjective: Patient seen at bedside this morning in no acute distress. He denies any new symptoms. There were no acute events over night. He states that he feels well and is wanting to go home today. - Objective MAR Reviewed: Yes Vital Signs & Weight: Vital Signs (12 hours) Temp Pulse Ox 12/30/18 05:00 98.0 F 12/30/18 00:00 98.5 F 100 12/29/18 20:00 98.5 F 97 Weight Admit Weight 78.1 kg Weight 81.4 kg Most Recent Monitor Data Heart Rate from ECG 59 NIBP 145/78 NIBP BP-Mean 100 Respiration from ECG 14 SpO2 98 I&O: 12/28/18 12/29/18 12/30/18 06:59 06:59 06:59 Intake Total 3969 2512 1220 Output Total 2455 4945 2650 Balance 1514 -813 -1430 Result Diagrams: 12/30/18 04:19 12/30/18 04:19 Phys Exam - Physical Examination Constitutional: NAD HEENT: moist MMs Respiratory: clear to auscultation bilateral Cardiovascular: no significant murmur irregularly irregular Gastrointestinal: soft, non-tender, no distention Musculoskeletal: no edema Neurological: non-focal Psychiatric: normal affect, A&O x 3 Skin: no rash Dx/Plan (1) Bacteremia Code(s): R78.81 - BACTEREMIA Status: Acute (2) UTI (urinary tract infection) Status: Acute (3) BPH (benign prostatic hyperplasia) Code(s): N40.0 - BENIGN PROSTATIC HYPERPLASIA WITHOUT LOWER URINRY TRACT SYMP Status: Chronic (4) GERD (gastroesophageal reflux disease) Code(s): K21.9 - GASTRO-ESOPHAGEAL REFLUX DISEASE WITHOUT ESOPHAGITIS Status: Chronic (5) HLD (hyperlipidemia) Code(s): E78.5 - HYPERLIPIDEMIA, UNSPECIFIED Status: Chronic (6) HTN (hypertension) Code(s): I10 - ESSENTIAL (PRIMARY) HYPERTENSION Status: Chronic (7) Hx of BKA Code(s): Z89.519 - ACQUIRED ABSENCE OF UNSPECIFIED LEG BELOW KNEE Status: Chronic (8) MONY (acute kidney injury) Code(s): N17.9 - ACUTE KIDNEY FAILURE, UNSPECIFIED Status: Resolved (9) Atrial fibrillation Code(s): I48.91 - UNSPECIFIED ATRIAL FIBRILLATION Status: Chronic Qualifiers: Atrial fibrillation type: paroxysmal Qualified Code(s): I48.0 - Paroxysmal atrial fibrillation (10) Inguinal hernia Code(s): K40.90 - UNIL INGUINAL HERNIA, W/O OBST OR GANGR, NOT SPCF RECUR Status: Acute (11) Calcified mesenteric mass Code(s): K66.8 - OTHER SPECIFIED DISORDERS OF PERITONEUM Status: Acute - Plan Plan: 1. Septic Shock: 2/2 UTI, resolved - Continue PO cipro, Day 3 today - Ready to be transferred out of ICU as soon as room is available 2. UTI: - as above - Likely secondary to BPH. Seen by urology yesterday who will see him outpatient. - CT abd pelv showed no obvious source of obstruction 3. Bacteremia - Treat with Cipro as above for 14 days duration 4. MONY: resolved 5. HTN: - Controlled, will consider restarting home meds if patient becomes hypertensive 6. A-fib: - Currently in A fib, rate controlled - continue home medications, Amiodarone and Xarelto 7. Recent BKA: - fall precautions. 8. L inguinal hernia - incidental finding, outpatient follow up with surgery. 9. Mesenteric mass - incidental finding, will need outpatient imaging to better characterize. Per radiology read, this is a possible carcinoid Dispo: patient doing well overall and currently stable. Likely ready to dc today Addendum - Attending - Attending Attestation Date/Time: 12/30/18 2582 I personally evaluated the patient and discussed the management with Dr. Dotson I agree with the History, Examination, Assessment and Plan documented above with any addition or exceptions noted below- Patient without complaints. Eating breakfast. Afebrile VSS. A/P: 1) Septic shock- resolved. 2) Sepsis secondary to multi-drug resistant E. Coli- converted to po ciprofloxacin. Will need 14 day course with follow-up blood cultures. 3) BPH- appreciate urology recommendations and assistance. Continue laughlin; voiding trial as outpatient. 4) Mesenteric mass- incidental finding on CT scan- will plan for outpatient evaluation. 5) D/c planning- probable d/c today.
[2018-12-30] MEDS: Tamsulosin HCl 0.4 MG CAP PO SCH (08:02)
[2018-12-30] MEDS: Amiodarone 200 MG TAB PO SCH (08:02)
[2018-12-30] MEDS: Saccharomyces boulardii 250 MG CAP PO SCH (08:02)
[2018-12-30 08:11] VITALS: TEMP 98.5
--- NOTE | 2018-12-30 13:27 | PQF ---
DATE: 12-30-18 ATTN: DR. DERECK CURRIE Please exercise your independent, professional judgment in responding to the clarification form. Clinical indicators are provided on the bottom of this form for your review Please check appropriate box(s): [ ] Aspiration Pneumonia [ ] Empirically treating Gram Negative Pneumonia [ ] Simple Pneumonia (community acquired - nosocomial) [ ] Other diagnosis [ x] Unable to determine In addition, please specify: Present on Admission (POA): [ x ] Yes [ ] No [ ] Unable to determine For continuity of documentation, please document condition throughout progress notes and discharge summary. Thank You. CLINICAL INDICATORS - SIGNS / SYMPTOMS / LABS ER: COUGH, NON-PRODUCTIVE COUGH FOR PAST 2.5 WKS, NH REPORTS ELEVATED WBC, ER DX: SEPSIS, COUGH, LEUKOCYTOSIS H&P: SEPTIC SHOCK, UTI, COMMUNITY ACQUIRED PNEUMONIA PN DR. RICO 12-26-18: POSSIBLE CAP VS ASPIRATION PNA, LOW SUSPICION D/T URINE OBVIOUS SOURCE, CXR STABLE FINDINGS COMPARED TO CXR FROM 10-15-19, REGARDLESS, COVERED BY DADA AND ZOSYN TEMP: 12-26-18: 100.1 PULSE: 12-27-18: 121 WBC: 12-25-18: 16.4 12-26-18: 18.2 12-27-18: 14.0 12-28-18: 11.9 BANDS: 12-26-18: 14 12-27-18: 16 RISKS: PN DR. RICO 12-26-18: POSSIBLE CAP VS ASPIRATION PNA, LOW SUSPICION D/T URINE OBVIOUS SOURCE, CXR STABLE FINDINGS COMPARED TO CXR FROM 10-15-19, REGARDLESS, COVERED BY DADA AND ZOSYN ER: COUGH, NON-PRODUCTIVE COUGH FOR PAST 2.5 WKS, NH REPORTS ELEVATED WBC, TREATMENTS: PN DR. RICO 12-26-18: COVERED BY VANC AND ZOSYN MAR: CIPRO (This form is maintained as a part of the permanent medical record) 2014 [employer]. All Rights Reserved [email or web address] Office: [phone] [email or web address]
--- NOTE | 2018-12-31 01:30 | DIS ---
DATE OF ADMISSION: 12/26/2018 DATE OF DISCHARGE: 12/30/2018 RESIDENT: Paulie Dotson DO ADMITTING ATTENDING: Anny Aponte MD DISCHARGE ATTENDING: Anny Aponte MD CONSULTS: 1. Pulmonary and Critical Care, Beni Mishra MD. 2. Urology, Justino Mendoza MD. PROCEDURES: Chest x-ray on 12/25 with finding of elevated left hemidiaphragm with blunting of the left costophrenic angle. Left basilar atelectasis stable from x -ray on 10/15/2018. Abdomen and pelvis CT on 12/29 with finding proximal small bowel mesenteric mass with internal calcification suggesting carcinoid metastasis. Low density mass in the hepatic segment measuring 3.1 cm, new from 2013, concerning for metastatic foci. Pulmonary fibrosis, left pleural effusion, left-sided indirect inguinal hernia. ADMITTING DIAGNOSES: 1. Septic shock secondary to urinary tract infection. 2. Community-acquired pneumonia. 3. Bacteremia. SECONDARY DIAGNOSES: 1. Hypertension. 2. Hyperlipidemia. 3. Benign prostatic hyperplasia. 4. Dementia and atrial fibrillation. DISCHARGE MEDICATIONS: 1. Xarelto 20 mg p.o. daily. 2. Protonix 20 mg p.o. daily. 3. Torsemide 10 mg p.o. daily. 4. Benazepril 40 mg p.o. daily. 5. Ascorbic acid 500 mg p.o. daily. 6. Flomax 0.4 mg p.o. daily. 7. Vitamin D3 of 1000 units p.o. daily. 8. Amiodarone 200 mg p.o. daily. 9. Tramadol 100 mg p.o. q.6 p.r.n. pain. 10. Probiotic 100 mg p.o. daily. 11. Nystatin powder one application topically b.i.d. p.r.n. 12. Loperamide 2 mg p.o. q.4 p.r.n. diarrhea. 13. Ciprofloxacin 500 mg p.o. b.i.d. x11 days. DISCONTINUED MEDICATIONS: None. HOSPITAL COURSE: This is an 83-year-old male, who presented to the emergency room from [facility] due to hypotension and concern for possible UTI. The patient was diagnosed with septic shock secondary to urinary tract infection and possible community-acquired pneumonia. Upon admission, the patient required a right femoral central line and Levophed to maintain a mappable 65. He was initially started on vancomycin and Zosyn. Over the course of next few days, the patient recovered quickly. Cultures resulted E coli bacteremia and urinary tract infection sensitive to ciprofloxacin. The patient was switched over to a first IV Cipro and then transitioned to p.o. Cipro on the day before discharge. The patient was found to be in persistent atrial fibrillation as it is at home. His amiodarone and Xarelto were continued throughout the hospitalization. The patient did initially present with MONY, likely secondary to hypoperfusion related to shock. His initial creatinine was 1.59 with a GFR 42. On the day of discharge, his creatinine was 0.99 with a GFR 72. Prior to discharge, the patient was seen by Urology due to complicated UTI in a male. They recommended that patient be discharged with a Kaur catheter in place and followup with them within [address] abdomen and pelvis was ordered in order to evaluate possible causes of urinary obstruction. Incidentally, was found a calcified mesenteric mass concerning for carcinoid tumor. I recommended that the patient have a followup MRI with enteric water and indium 111 octreotide study to better classify the mass. It was recommended that this be completed in the outpatient setting. Prior to discharge, the patient was instructed to follow up with Urology within 1 week. Additionally, orders were sent for the patient to have a repeat blood culture following discontinuation of antibiotics within 2 weeks due to the bacteremia. DISCHARGE INSTRUCTIONS: 1. Location: [facility]. 2. Activity: Ambulation with physical therapy. 3. Diet: Heart healthy. 4. Followup: Follow up with PCP, Lenny Najera MD, within 1 week; with Dr. Justino Mendoza, Urology, within 1 week. Job ID: [id number] [facility]
== END 2018-12-30 15:15 | DRG 871 ==
LOC: ERS 18:37 → CCU 12-26 01:07
PROVIDERS: ADMIT Family Medicine; ATTEND Family Medicine
PROC: 3E043XZ Introduction of Vasopressor into Central Vein, Percutaneous Approach (ICD-10-PCS; principal; 2018-12-26)
PROC: 06HM33Z Insertion of Infusion Device into Right Femoral Vein, Percutaneous Approach (ICD-10-PCS; 2018-12-26)
DX: A41.51 Sepsis due to Escherichia coli [E. coli] (principal); R65.21 Severe sepsis with septic shock; J18.9 Pneumonia, unspecified organism; N17.9 Acute kidney failure, unspecified; N39.0 Urinary tract infection, site not specified; I10 Essential (primary) hypertension; I48.0 Paroxysmal atrial fibrillation; F03.90 Unspecified dementia, unspecified severity, without behavioral disturbance, psychotic disturbance, mood disturbance, and anxiety; G62.9 Polyneuropathy, unspecified; Z16.12 Extended spectrum beta lactamase (ESBL) resistance; K21.9 Gastro-esophageal reflux disease without esophagitis; E78.5 Hyperlipidemia, unspecified; N40.0 Benign prostatic hyperplasia without lower urinary tract symptoms; K40.90 Unilateral inguinal hernia, without obstruction or gangrene, not specified as recurrent; K66.8 Other specified disorders of peritoneum; Z89.512 Acquired absence of left leg below knee; Z79.01 Long term (current) use of anticoagulants
CPT/HCPCS: 36415; 36556; 71045; 74176; 80048; 81003; 81015; 83605; 83735; 84100; 84145; 85025; 87040; 87077; 87086; 87149; 87186; 87804; 93005; 93010; 96360; 96361; 96365; 96366; 96367; J0744; J2185; J2543; J3370; J3475; J7050

== ENCOUNTER 2019-01-13 15:36 | Inpatient (IN) | payer MEDICARE, OTHER ==
[2019-01-13 16:30] LABS: #Eosinphils 0.1 thou/uL (0.0-0.7); #Lymphocytes 0.6 thou/uL (1.20-3.40); #Monocytes 0.7 thou/uL (0.11-0.59); %Eosinophils 1.6 % (0.0-10.0); %Lymphocytes 8.5 % (21.0-51.0); %Monocytes 9.3 % (0.0-10.0); %Neutrophils 80.6 % (42.0-75.0); Hemoglobin 10.8 g/dL (14.0-18.0); Mean Corpuscular Hemoglobin 28.5 pg (27.0-31.0); Mean Platelet Volume 8.1 fL (7.4-10.4); Platelet Count 227 thou/uL (130-400); RBC Distribution Width 14.9 % (11.5-14.5); Red Blood Cell (RBC) Count 3.78 mill/uL (4.70-6.10); White Blood Cell (WBC) Count 7.4 thou/uL (4.8-10.8)
[2019-01-13 16:55] LABS: ALT (SGPT) 9 U/L (8-55); AST (SGOT) 12 U/L (5-34); Albumin 2.7 g/dL (3.4-4.8); Alkaline Phosphatase 73 U/L (40-150); Anion Gap 8 mmol/L (10-20); BUN (Urea Nitrogen) 14 mg/dL (8.4-25.7); Bilirubin, Total 0.4 mg/dL (0.2-1.2); Calc. Creatinine Clearance 0 mL/min (70-130); Calcium 7.6 mg/dL (7.8-10.44); Carbon Dioxide 29 mmol/L (23-31); Chloride 106 mmol/L (98-107); Estimated GFR-MDRD 43; Globulin 2.4 g/dL (2.4-3.5); Glucose 100 mg/dL (83-110); Potassium 3.7 mmol/L (3.5-5.1); Protein, Total 5.1 g/dL (5.8-8.1); Sodium 139 mmol/L (136-145)
--- NOTE | 2019-01-13 17:13 | CT ---
CT BRAIN: Date: 01/13/19 HISTORY: Altered mental status. TECHNIQUE: Noncontrast enhanced CT images of brain obtained from the base of the skull through the vertex. Brain and bone windows are obtained. FINDINGS: CT images of the brain demonstrate the brain to be unremarkable. No evidence of intracranial masses, hemorrhages, strokes, or contusions seen. The ventricles are of normal size. IMPRESSION: Unremarkable CT brain. POS: [facility]
[2019-01-13 18:11] LABS: Bilirubin Negative (Negative); Blood, Urine Negative (Negative); Clarity CLEAR (Clear); Glucose, Urine (Dipstick) Negative (Negative); Leukocyte Negative (Negative); Nitrite Negative (Negative); Protein, Urine (Dipstick) Negative (Neg-Trace); Specific Gravity, Urine 1.005 (1.002-1.036); Urobilinogen 0.2 mg/dL (0.2-1.0); pH, Urine 6.5 (5.0-9.0)
[2019-01-13] MEDS ORDERED: Ondansetron ODT 4 MG TAB SL PRN (21:18)
[2019-01-13] MEDS ORDERED: Ondansetron PF 4 MG/2 ML Vial IVP PRN (21:18)
[2019-01-13] MEDS ORDERED: Acetaminophen 325 MG TAB PO PRN (21:18)
[2019-01-13] MEDS: Sodium Chloride 0.9% 1,000 ML IV SCH (22:43)
--- NOTE | 2019-01-13 23:06 | PDOC.FPRHP ---
- History of Present Illness Chief Complaint: syncope History of Present Illness: 83 y/o male with PMH of HTN, HLP, BPH, Afib, dementia and new mesenteric mass was in the office for a dermatology appointment and apparently fainted while seated. He does not remember the event and does not recall presyncope, vasovagal symptoms, palpitations or chest pain. Denies shortness of breath or difficulty breathing. Woke up with no post-ictal phase per him. He feels fine now and has no complaints. - Allergies/Adverse Reactions Allergies Allergy/AdvReac Type Severity Reaction Status Date / Time No Known Allergies Allergy Verified 12/23/14 12:28 - Home Medications Medication Instructions Recorded Confirmed Type Pantoprazole [Protonix] 20 mg PO DAILY 04/22/13 12/26/18 History Rivaroxaban [Xarelto] 20 mg PO DAILY 04/22/13 12/26/18 History Torsemide 10 mg PO DAILY 04/22/13 12/26/18 History Benazepril HCl 40 mg PO QAM 04/24/13 12/26/18 History Ascorbic Acid [Vitamin C] 500 mg PO DAILY 07/20/15 12/26/18 History Amiodarone HCl 200 mg PO DAILY 10/16/18 12/26/18 History Cholecalciferol (Vitamin D3) 1,000 unit PO DAILY 10/16/18 12/26/18 History [Vitamin D] Tamsulosin HCl 0.4 mg PO DAILY 10/16/18 12/26/18 History traMADol HCl [Ultram] 50 mg PO Q6H PRN tab 10/23/18 12/26/18 Rx traMADol HCl [Ultram] 100 mg PO Q6H PRN tab 10/23/18 12/26/18 Rx Loperamide HCl [Imodium A-D] 2 mg PO Q4HR PRN 12/26/18 12/26/18 History Nystatin [Nystatin Powder] 1 applic TOP BID PRN 12/26/18 12/26/18 History Saccharomyces Boulardii [Digestive 500 mg PO DAILY 12/26/18 12/26/18 History Probiotic] Ciprofloxacin [Cipro] 500 mg PO 0600,1999 #22 tab 12/30/18 Rx - History PMHx: HTN HLP Atrial fibrillation BPH Dementia Mesenteric Mass Skin cancer PSHx: Multiple dermatologic procedures FHx: Reviewed and noncontributory Social: denies current LARRY - Review of Systems General: denies: fever/chills, weight/appetite/sleep changes Eyes: denies: eye pain, vision changes ENT: denies: nasal congestion, rhinorrhea Respiratory: denies: cough, shortness of breath Cardiovascular: denies: chest pain, palpitation, edema Gastrointestinal: denies: nausea, vomiting, diarrhea Genitourinary: denies: dysuria, polyuria Skin: denies: rashes, lesions Musculoskeletal: denies: pain, tenderness Neurological: denies: numbness, seizure, weakness Psychological: denies: anxiety, depression - Vital signs BP: 103/63 HR: 74 RR: 20 Tmax: 97.7 Pox: 97% on RA - Physical Exam Constitutional: NAD, awake, alert and oriented HEENT: normocephalic and atraumatic, PERRLA, EOMI, conjunctiva clear Neck: supple, FROM Chest: no-tender to palpation, no lesions Heart: RRR, normal S1/S2, no murmurs/rubs/gallops, no edema Lungs: CTAB, no respiratory distress, good air movement Abdomen: soft, non-tender, bowel sounds present, no masses/distention Musculoskeletal: normal structure, normal tone Neurological: no focal deficit, CN II-XII intact, normal sensation Skin: no rash/lesions, good turgor Heme/Lymphatic: no unusual bruising or bleeding, no purpura, no petechia Psychiatric: normal mood and affect, other (demented) FMR H&P: Results - Labs Result Diagrams: 01/13/19 16:17 01/13/19 16:17 Lab results: WBC 7.4 thou/uL (4.8-10.8) 01/13/19 16:17 Hgb 10.8 g/dL (14.0-18.0) L 01/13/19 16:17 Hct 34.8 % (42.0-52.0) L 01/13/19 16:17 MCV 92.0 fL (78.0-98.0) 01/13/19 16:17 Plt Count 227 thou/uL (130-400) 01/13/19 16:17 Neutrophils % 80.6 % (42.0-75.0) H 01/13/19 16:17 Sodium 139 mmol/L (136-145) 01/13/19 16:17 Potassium 3.7 mmol/L (3.5-5.1) 01/13/19 16:17 Chloride 106 mmol/L (98-107) 01/13/19 16:17 Carbon Dioxide 29 mmol/L (23-31) 01/13/19 16:17 BUN 14 mg/dL (8.4-25.7) 01/13/19 16:17 Creatinine 1.54 mg/dL (0.7-1.3) H 01/13/19 16:17 Glucose 100 mg/dL (83-110) 01/13/19 16:17 Calcium 7.6 mg/dL (7.8-10.44) L 01/13/19 16:17 Total Bilirubin 0.4 mg/dL (0.2-1.2) 01/13/19 16:17 AST 12 U/L (5-34) 01/13/19 16:17 ALT 9 U/L (8-55) 01/13/19 16:17 Alkaline Phosphatase 73 U/L (40-150) 01/13/19 16:17 Serum Total Protein 5.1 g/dL (5.8-8.1) L 01/13/19 16:17 Albumin 2.7 g/dL (3.4-4.8) L 01/13/19 16:17 Urine Ketones Negative mg/dL (Negative) 01/13/19 17:49 Urine Blood Negative (Negative) 01/13/19 17:49 Urine Nitrite Negative (Negative) 01/13/19 17:49 Ur Leukocyte Esterase Negative (Negative) 01/13/19 17:49 - EKG Interpretation EKG: Unable to find despite extensive searching - Radiology Interpretation CT scan - head Additional comment: unremarkable ct head FMR H&P: A/P - Problem List (1) Syncope Current Visit: Yes Status: Acute Code(s): R55 - SYNCOPE AND COLLAPSE (2) Calcified mesenteric mass Current Visit: No Status: Acute Code(s): K66.8 - OTHER SPECIFIED DISORDERS OF PERITONEUM (3) Dementia Current Visit: No Status: Acute Code(s): F03.90 - UNSPECIFIED DEMENTIA WITHOUT BEHAVIORAL DISTURBANCE (4) Inguinal hernia Current Visit: No Status: Acute Code(s): K40.90 - UNIL INGUINAL HERNIA, W/O OBST OR GANGR, NOT SPCF RECUR (5) Atrial fibrillation Current Visit: No Status: Chronic Code(s): I48.91 - UNSPECIFIED ATRIAL FIBRILLATION Qualifiers: Atrial fibrillation type: paroxysmal Qualified Code(s): I48.0 - Paroxysmal atrial fibrillation Comment: resume rivaroxaban today (6) BPH (benign prostatic hyperplasia) Current Visit: No Status: Chronic Code(s): N40.0 - BENIGN PROSTATIC HYPERPLASIA WITHOUT LOWER URINRY TRACT SYMP (7) GERD (gastroesophageal reflux disease) Current Visit: No Status: Chronic Code(s): K21.9 - GASTRO-ESOPHAGEAL REFLUX DISEASE WITHOUT ESOPHAGITIS (8) HLD (hyperlipidemia) Current Visit: No Status: Chronic Code(s): E78.5 - HYPERLIPIDEMIA, UNSPECIFIED (9) HTN (hypertension) Current Visit: No Status: Chronic Code(s): I10 - ESSENTIAL (PRIMARY) HYPERTENSION (10) Hx of BKA Current Visit: No Status: Chronic Code(s): Z89.519 - ACQUIRED ABSENCE OF UNSPECIFIED LEG BELOW KNEE - Plan Syncope -LEO, labs, repeat ECG in the AM as I cannot find the one from the ER -consider cards consult in AM as rather concerning history -hold tramadol A fib -continue rivaroxaban, amiodarone HTN -continue benazepril, hold torsemide BPH -continue flomax HLP -with dx but apparently not on statin, would defer to outpatient GERD -continue protonix DVT ppx as above GI ppx as above FMR H&P: Upper Level - Plan Date/Time: 01/13/19 1077 I, [], have evaluated this patient and agree with findings/plan as outlined by bakery pastry internship resident. Pertinent changes/additions are listed here.
[2019-01-13 23:53] VITALS: BMI 22.5
[2019-01-14] MEDS: Sodium Chloride 0.9% 1,000 ML IV SCH (04:16)
[2019-01-14 05:16] LABS: #Eosinphils 0.2 thou/uL (0.0-0.7); #Lymphocytes 0.9 thou/uL (1.20-3.40); #Monocytes 0.5 thou/uL (0.11-0.59); #Neutrophils 3.8 thou/uL (1.40-6.50); %Basophils 0.3 % (0.0-1.0); %Eosinophils 3.7 % (0.0-10.0); %Lymphocytes 16.1 % (21.0-51.0); %Neutrophils 69.9 % (42.0-75.0); Hemoglobin 10.2 g/dL (14.0-18.0); Mean Corpuscular HGB CONC 31.6 g/dL (32.0-36.0); Mean Corpuscular Hemoglobin 29.2 pg (27.0-31.0); Mean Corpuscular Volume 92.6 fL (78.0-98.0); Platelet Count 216 thou/uL (130-400); RBC Distribution Width 15.2 % (11.5-14.5); Red Blood Cell (RBC) Count 3.51 mill/uL (4.70-6.10); White Blood Cell (WBC) Count 5.4 thou/uL (4.8-10.8)
--- NOTE | 2019-01-14 06:34 | PDOC.FM ---
- Subjective Subjective: Patient feels well this AM, states that he wants to go home. Eating/drinking well, no complaints this AM. - Objective Vital Signs & Weight: Vital Signs (12 hours) Temp Pulse Resp BP Pulse Ox 01/14/19 04:00 98.0 F 57 L 16 128/66 96 01/14/19 00:00 97.8 F 67 20 134/73 93 L 01/13/19 22:55 98.1 F 70 20 140/74 96 Weight Weight 75.342 kg I&O: 01/12/19 01/13/19 01/14/19 06:59 06:59 06:59 Intake Total 950 Output Total 620 Balance 330 Result Diagrams: 01/14/19 04:45 01/14/19 04:45 Phys Exam - Physical Examination Constitutional: NAD HEENT: PERRLA, moist MMs Neck: no nodes, supple Respiratory: no wheezing, clear to auscultation bilateral Cardiovascular: RRR, no significant murmur Gastrointestinal: soft, non-tender, no distention, positive bowel sounds Musculoskeletal: no edema, pulses present Neurological: non-focal, moves all 4 limbs Psychiatric: normal affect Skin: normal turgor, cap refill <2 seconds Dx/Plan (1) Syncope Code(s): R55 - SYNCOPE AND COLLAPSE Status: Acute (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 - OTHER SPECIFIED DISORDERS OF PERITONEUM Status: Chronic (3) Dementia Code(s): F03.90 - UNSPECIFIED DEMENTIA WITHOUT BEHAVIORAL DISTURBANCE Status: Chronic (4) Atrial fibrillation Code(s): I48.91 - UNSPECIFIED ATRIAL FIBRILLATION Status: Chronic Qualifiers: Atrial fibrillation type: paroxysmal Qualified Code(s): I48.0 - Paroxysmal atrial fibrillation (5) BPH (benign prostatic hyperplasia) Code(s): N40.0 - BENIGN PROSTATIC HYPERPLASIA WITHOUT LOWER URINRY TRACT SYMP Status: Chronic (6) GERD (gastroesophageal reflux disease) Code(s): K21.9 - GASTRO-ESOPHAGEAL REFLUX DISEASE WITHOUT ESOPHAGITIS Status: Chronic (7) HLD (hyperlipidemia) Code(s): E78.5 - HYPERLIPIDEMIA, UNSPECIFIED Status: Chronic (8) HTN (hypertension) Code(s): I10 - ESSENTIAL (PRIMARY) HYPERTENSION Status: Chronic (9) Hx of BKA Code(s): Z89.519 - ACQUIRED ABSENCE OF UNSPECIFIED LEG BELOW KNEE Status: Chronic - Plan Plan: Syncope - Possibly 2/2 hypotension vs cardiac vs infection vs other - VSS now stable - Repeat ECG in the AM - consider cards consult today - hold tramadol - Echo pending - CT head negative - Received 1L NS in ED - UA neg, cx pending A fib -continue rivaroxaban, amiodarone HTN -continue benazepril, hold torsemide BPH -continue flomax HLD -with dx but apparently not on statin, would defer to outpatient GERD -continue protonix Calcified Mesenteric Mass - Seen on CT last visit - Recommend out patient work up with DVT ppx as above GI ppx as above PCP: Lisseth Arguetaendum - Attending - Attending Attestation Date/Time: 01/14/19 8845 I personally evaluated the patient and discussed the management with Dr. Pathak. I agree with the History, Examination, Assessment and Plan documented above with any addition or exceptions noted below. Patient doing well and denies any acute events overnight. Here for syncope that occurred at rest concerning for cardiogenic. He has been having some abnormal rhythms on telemetry and currently on Amiodarone therapy. Will consult Cardiology to see if further monitoring or medication changes needed. He is otherwise doing well.
[2019-01-14 06:39] LABS: ALT (SGPT) 9 U/L (8-55); AST (SGOT) 9 U/L (5-34); Albumin 2.6 g/dL (3.4-4.8); Alkaline Phosphatase 70 U/L (40-150); Anion Gap 11 mmol/L (10-20); BUN (Urea Nitrogen) 12 mg/dL (8.4-25.7); Bilirubin, Total 0.5 mg/dL (0.2-1.2); Calc. Creatinine Clearance 47 mL/min (70-130); Calcium 7.8 mg/dL (7.8-10.44); Carbon Dioxide 25 mmol/L (23-31); Chloride 109 mmol/L (98-107); Estimated GFR-MDRD 56; Globulin 2.3 g/dL (2.4-3.5); Glucose 74 mg/dL (83-110); Potassium 3.4 mmol/L (3.5-5.1); Protein, Total 4.9 g/dL (5.8-8.1); Sodium 142 mmol/L (136-145)
[2019-01-14] MEDS ORDERED: Loperamide HCl 2 MG CAP PO PRN (10:26)
[2019-01-14] MEDS ORDERED: Nystatin Powder 15 GM BOT TOP PRN (10:26)
[2019-01-14] MEDS ORDERED: Torsemide 10 MG TAB PO SCH (10:45)
[2019-01-14] MEDS: Ascorbic Acid 500 mg Chewable Tablet PO SCH (11:11)
[2019-01-14] MEDS: Amiodarone 200 MG TAB PO SCH (11:13)
[2019-01-14] MEDS: Tamsulosin HCl 0.4 MG CAP PO SCH (11:13)
[2019-01-14] MEDS: Saccharomyces boulardii 250 MG CAP PO SCH (11:13)
--- NOTE | 2019-01-14 14:36 | CON ---
DATE OF CONSULTATION: 01/14/2019 REASON FOR CONSULTATION: Syncope. HISTORY OF PRESENT ILLNESS: Mr. Peterson is a very pleasant 83-year-old gentleman, history of paroxysmal atrial fibrillation, who had a syncopal episode yesterday. Mr. Peterson was sitting in the dermatology office in his wheelchair, waiting to go back. He said he wheeled himself around the room. He was on TV, that is the last thing he remembers until the ambulance had arrived. He did want to go to the hospital, but his family convinced him to go and he did and he was brought in for observation. He has been okay since being here. No chest pain or pressure. No shortness of breath. Otherwise, the patient has been doing fairly well. PAST MEDICAL HISTORY: 1. History of atrial fibrillation with previous ablation in [place] many years ago. 2. History of cardioversion in 2012. I do not see that documented in the hospital notes. MEDICATIONS: At home include: 1. Amiodarone 200 mg daily. 2. Tamsulosin. 3. Benazepril. 4. Torsemide. 5. Pantoprazole. 6. Xarelto 20 mg daily. REVIEW OF SYSTEMS: CONSTITUTIONAL: No significant weight gain or loss. HEENT: Vision; no changes. Hearing; no changes. PULMONARY: No cough or wheezing. GASTROINTESTINAL: No nausea, vomiting, diarrhea. SKIN: No rashes. NEUROLOGIC: No unilateral weakness or numbness. PSYCHIATRIC: No unusual depression or anxiety. HEMATOLOGIC: No unusual bruising. GENITOURINARY: No burning with urination. PHYSICAL EXAMINATION: GENERAL: This is a pleasant elderly gentleman resting comfortably. Blood pressure 122/58, pulse 58 regular. LUNGS: Clear. CARDIAC: Normal S1, normal S2. ABDOMEN: Soft, nontender. EXTREMITIES: There is no edema. IMAGING: EKG sinus rhythm. ASSESSMENTS: Syncopal episode, very suspicious for a pause, came on suddenly in the sitting position. These are not infrequently seen. The patient's with paroxysmal atrial fibrillation, if they come out of the fibrillation with a long pause, they may have a syncopal episode. PLAN: 1. Continue to monitor. 2. Echocardiogram is pending. 3. Monitor overnight. If he does not have any arrhythmias tonight, can let him go home with outpatient monitoring to be brought back, if he has any pauses. Discussed, if he does have proven pauses, then permanent pacemaker insertion could be done. Job ID: [id number]
[2019-01-14] MEDS ORDERED: Ciprofloxacin 500 MG TAB PO SCH (20:00)
--- NOTE | 2019-01-15 06:30 | PDOC.FM ---
Addendum entered and electronically signed by Kerry Pathak MD 01/15/19 10:41: Suspect Syncope Secondary to Cardiac Arrhythmia. -Patient will be discharged with Holter Monitor Original Note: - Subjective Subjective: Patient feels well this AM, no chest pain or SOB. No dizziness or headache. Denies any other symptoms this AM. He is asking when he will be able to go back to his custodial facility. - Objective Vital Signs & Weight: Vital Signs (12 hours) Temp Pulse Resp BP Pulse Ox 01/15/19 04:00 98.0 F 65 18 133/62 93 L 01/14/19 19:59 97 01/14/19 19:35 98.2 F 86 20 104/60 97 Weight Weight 75.523 kg I&O: 01/13/19 01/14/19 01/15/19 06:59 06:59 06:59 Intake Total 950 2220 Output Total 620 1745 Balance 330 475 Result Diagrams: 01/14/19 04:45 01/14/19 04:45 Phys Exam - Physical Examination Constitutional: NAD Respiratory: no wheezing, clear to auscultation bilateral Cardiovascular: RRR, no significant murmur Gastrointestinal: soft, non-tender, no distention, positive bowel sounds Musculoskeletal: no edema, pulses present Neurological: moves all 4 limbs Psychiatric: normal affect Skin: normal turgor, cap refill <2 seconds Dx/Plan (1) Syncope Code(s): R55 - SYNCOPE AND COLLAPSE Status: Acute (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 - OTHER SPECIFIED DISORDERS OF PERITONEUM Status: Chronic (3) Dementia Code(s): F03.90 - UNSPECIFIED DEMENTIA WITHOUT BEHAVIORAL DISTURBANCE Status: Chronic (4) Atrial fibrillation Code(s): I48.91 - UNSPECIFIED ATRIAL FIBRILLATION Status: Chronic Qualifiers: Atrial fibrillation type: paroxysmal Qualified Code(s): I48.0 - Paroxysmal atrial fibrillation (5) BPH (benign prostatic hyperplasia) Code(s): N40.0 - BENIGN PROSTATIC HYPERPLASIA WITHOUT LOWER URINRY TRACT SYMP Status: Chronic (6) GERD (gastroesophageal reflux disease) Code(s): K21.9 - GASTRO-ESOPHAGEAL REFLUX DISEASE WITHOUT ESOPHAGITIS Status: Chronic (7) HLD (hyperlipidemia) Code(s): E78.5 - HYPERLIPIDEMIA, UNSPECIFIED Status: Chronic (8) HTN (hypertension) Code(s): I10 - ESSENTIAL (PRIMARY) HYPERTENSION Status: Chronic (9) Hx of BKA Code(s): Z89.519 - ACQUIRED ABSENCE OF UNSPECIFIED LEG BELOW KNEE Status: Chronic - Plan Plan: Syncope - Possibly 2/2 hypotension vs cardiac vs infection vs other - VSS now stable, no acute events overnight or pauses - CT head negative - Received 1L NS in ED - Repeat EKG -showed Atrial fibrillation - Echo: atrial fibrillation, EF 60-65%, LA mild dilated - UA neg, cx showed 50-75,000 organisms; hold antibiotics at this time as patient asx - hold tramadol - Cards consulted 01/14, Dr. Quintero, appreciate recommendations Paroxysmal A fib -continue rivaroxaban, amiodarone - patient appears to intermittently go into A fib that is rate controlled, sinus 50s-80s this AM HTN -continue benazepril, hold torsemide BPH -continue flomax HLD -with dx but apparently not on statin, would defer to outpatient GERD -continue protonix Calcified Mesenteric Mass - Seen on CT last visit - Recommend out patient work up with DVT ppx as above GI ppx as above PCP: Lisseth Dispo: pending cardiology recommendations Addendum - Attending - Attending Attestation Date/Time: 01/15/19 1131 I personally evaluated the patient and discussed the management with Dr. Pathak. I agree with the History, Examination, Assessment and Plan documented above with any addition or exceptions noted below. Patient here with syncope of suspected cardiogenic origin the setting of p Afib and EKG showing Afib along with trigeminy. Patient was admitted for the concern of possible Vtach or SA pauses as the cause of his syncope. Cardiology has evaluated and agrees with discharge but they will be planning an event monitor to further monitor his condition. Stable for discharge.
[2019-01-15] MEDS: Ascorbic Acid 500 mg Chewable Tablet PO SCH (08:24)
[2019-01-15] MEDS: Tamsulosin HCl 0.4 MG CAP PO SCH (08:24)
[2019-01-15] MEDS: Amiodarone 200 MG TAB PO SCH (08:24)
[2019-01-15] MEDS: Saccharomyces boulardii 250 MG CAP PO SCH (08:24)
[2019-01-15] MEDS ORDERED: Torsemide 10 MG TAB PO SCH (09:00)
--- NOTE | 2019-01-15 09:53 | PRG ---
DATE OF SERVICE: 01/15/2019 SUBJECTIVE: Mr. Peterson is doing well. He has had no further syncopal episodes. OBJECTIVE: The blood pressure here yesterday afternoon was 106/57, this morning 133/62. There has been no bradycardia on the monitor. ASSESSMENT: 1. Syncopal episode, orthostatic hypotension versus bradyarrhythmia. No evidence of any bradyarrhythmia now. 2. Paroxysmal atrial fibrillation, maintaining sinus rhythm, previous ablation. PLAN: 1. Plan to go home with a two week long-term Holter monitor. 2. Change Flomax to bedtime instead of in the morning. 3. He is okay with me to be released home to see us in the office in 2 or 3 weeks. Job ID: [id number]
[2019-01-15 11:49] VITALS: BP 154/84; TEMP 98.1
[2019-01-15] MEDS ORDERED: Rivaroxaban 10 MG TAB PO SCH (17:00)
--- NOTE | 2019-01-16 02:47 | DIS ---
DATE OF ADMISSION: 01/13/2019 DATE OF DISCHARGE: 01/15/2019 RESIDENT: Kerry Pathak MD. CONSULT: Dr. Quintero, Cardiology on 01/14/2019. PROCEDURES: 1. Brain CT on 01/13/2019, impression; unremarkable CT brain. 2. Echocardiogram on 01/15/2019, summary: Left ventricular size is normal. Ejection fraction is visually estimated at 60% to 65%. Atrial fibrillation. The left atrium is mildly dilated. No evidence of mitral regurgitation. No aortic stenosis. Trace tricuspid insufficiency. Trace tricuspid regurgitation. PRIMARY DIAGNOSES: 1. Syncope likely secondary to cardiac arrhythmia. 2. Paroxysmal atrial fibrillation. SECONDARY DIAGNOSES: 1. Hypertension. 2. Benign prostatic hyperplasia. 3. Hyperlipidemia. 4. Gastroesophageal reflux disease. 5. Calcified mesenteric mass. DISCHARGE MEDICATIONS: 1. Amiodarone 200 mg p.o. daily. 2. Vitamin C 500 mg p.o. daily. 3. Benazepril 40 mg p.o. q.a.m. 4. Vitamin D3 1000 units p.o. daily. 5. Loperamide 2 mg p.o. q.4 hours p.r.n. for diarrhea or loose stools. 6. Nystatin one application topically b.i.d. p.r.n. for rash or topical irritation. 7. Pantoprazole 20 mg p.o. daily. 8. Rivaroxaban 20 mg p.o. daily. 9. Digestive probiotic 5 mg p.o. daily. 10. Tamsulosin 0.4 mg p.o. daily. 11. Torsemide 10 mg p.o. daily. DISCONTINUED MEDICATIONS: None. 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 He reports he does not remember the events and does not recall presyncope, vasovagal symptoms, palpitations, or chest pain. He denied shortness of breath or difficulty breathing. He woke up with no postictal state per him. He reports he feels fine and has no complaints. Brain CTA of the head was negative. EKG showed atrial fibrillation. The patient had transthoracic echocardiogram that was resulted as above. Cardiology, Dr. Quintero , was consulted. The syncopal episode was likely secondary to a cardiac arrhythmia secondary to patient's paroxysmal atrial fibrillation. The patient was discharged to home with a 2-week long-term Holter monitor. He will follow up with Dr. Quitnero in his office in 2 to 3 weeks. DISPOSITION: Stable. DISCHARGE INSTRUCTIONS: LOCATION: Home. DIET: Heart healthy, low-sodium. ACTIVITY: As tolerated. FOLLOWUP: Follow up with PCP, Dr. Papito Thorne within 1 week, Dr. Quintero in 2 to 3 weeks. Job ID: [id number] MTDD
--- NOTE | 2019-01-16 16:34 | EKG ---
Test Reason : Blood Pressure : / mmHG Vent. Rate : 076 BPM Atrial Rate : 083 BPM P-R Int : 000 ms QRS Dur : 092 ms QT Int : 418 ms P-R-T Axes : 000 -37 010 degrees QTc Int : 470 ms Atrial fibrillation Left axis deviation Low voltage QRS Abnormal ECG When compared with ECG of 13-JAN-2019 15:44, (Unconfirmed) No significant change was found Confirmed by DR. Miah CALVILLO ([id number]) on 01/16/2019 4:34:25 PM Referred By: ONIEL Confirmed By:DR. Miah CALVILLO
== END 2019-01-15 13:56 | DRG 310 ==
LOC: ERS 15:36 → 2NO 18:43
PROVIDERS: ADMIT Family Medicine; ATTEND Family Medicine
DX: I49.8 Other specified cardiac arrhythmias (principal); I95.1 Orthostatic hypotension; Z66 Do not resuscitate; I48.0 Paroxysmal atrial fibrillation; I10 Essential (primary) hypertension; E78.5 Hyperlipidemia, unspecified; N40.0 Benign prostatic hyperplasia without lower urinary tract symptoms; F03.90 Unspecified dementia, unspecified severity, without behavioral disturbance, psychotic disturbance, mood disturbance, and anxiety; C44.90 Unspecified malignant neoplasm of skin, unspecified; K66.8 Other specified disorders of peritoneum; K40.90 Unilateral inguinal hernia, without obstruction or gangrene, not specified as recurrent; K21.9 Gastro-esophageal reflux disease without esophagitis; Z89.512 Acquired absence of left leg below knee; Z79.899 Other long term (current) drug therapy; G62.9 Polyneuropathy, unspecified; Z90.49 Acquired absence of other specified parts of digestive tract
CPT/HCPCS: 36415; 70450; 80053; 81003; 84443; 84484; 85025; 87077; 87086; 87186; 93005; 93010; 93306; 96360; 96361

== ENCOUNTER 2019-04-01 12:03 | Outpatient (CLI) | payer MEDICARE, OTHER ==
--- NOTE | 2019-04-01 14:51 | MRI ---
MRI OF THE ABDOMEN WITHOUT AND WITH CONTRAST/MR ENTEROGRAPHY: 04/01/19 COMPARISON: CT abdomen/pelvis 12/29/18. HISTORY: Mesenteric mass and liver mass seen on CT. TECHNIQUE: Multiplanar and multisequence MR images were obtained of the abdomen without and with IV contrast. Vo Lumen was administered to opacity the bowel loops prior to this examination. FINDINGS: There is an enhancing spiculated mass in the root of the mesentery measuring approximately 3.3 cm in greatest dimension. This corresponds to the mass containing calcifications on CT although the locatio n appears to have moved as this is now in the right abdomen compared to the left abdomen. No other me senteric masses are appreciated. The small bowel loops are normal in caliber without significant dila tation. No colonic abnormality is seen. There is a well circumscribed mass in the right lobe of the liver measuring 3.6 cm in size. This appe ars to have slightly enlarged compared to the prior examination. This mass is well circumscribed and demonstrates enhancement with partial washout on the delayed phase images. No other liver lesions are seen. The gallbladder, adrenal glands, and spleen are unremarkable. Numerous tiny Subcentimeter cysts are s een in the pancreas. IMPRESSION: 1. 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 2. Nonspecific hepatic mass. This could represent a primary liver neoplasm or this could potenti ally represent a solitary metastatic focus. 3. Small tiny hepatic cyst. POS: [facility]
== END 2019-04-01 12:04 | disposition home or self-care (01) ==
LOC: MRI 12:03
PROVIDERS: ATTEND Physician Assistant Medical
DX: R93.89 Abnormal findings on diagnostic imaging of other specified body structures (principal); K76.89 Other specified diseases of liver; R16.0 Hepatomegaly, not elsewhere classified
CPT/HCPCS: 74183; 82565; J1610

== ENCOUNTER 2019-06-26 09:38 | Outpatient (CLI) | payer MEDICARE ==
--- NOTE | 2019-06-26 10:55 | CT ---
CT OF ABDOMEN AND PELVIS: DATE: 06/26/2019. COMPARISON: 12/29/2018. HISTORY: Malignant neoplasm of anal canal. TECHNIQUE: Axial CT imaging obtained at 5 mm intervals from lung bases through pubic symphysis with intravenous and oral contrast. Coronal reformatted imaging obtained. FINDINGS: Extensive coronary arterial calcification is noted. Imaged lung bases demonstrate coarse linear interstitial density with bronchiectatic and fibrotic ashlyn nge within the imaged inferior posterior right lower lobe. No free intraperitoneal air or fluid. There is a lesion within the right lobe of the liver measuring 1.7 cm in greatest dimension, decrease d in size when compared to the 12/29/2018 study at which time it measured approximately 3.4 cm. Findings suggest a treated malignant lesion. No new liver lesion is evident on this examination. The gallbladder, spleen, pancreas, and adrenal glands demonstrate no acute findings. Bilateral kidneys appear grossly unremarkable aside from bilateral cortical thinning. There is a spiculated mesenteric mass within the ventral aspect of the mid left abdomen with associat ed coarse calcifications, most consistent with carcinoid tumor. The irregular margins of this lesion make accurate measurements somewhat difficult. This lesion is felt to measure 2.5 cm in cranio caudal dimension, decreased from 3.4 cm on the prior exam. There is distal colonic circumferential wall thickening from the axial level of the acetabular roof t hrough the axial level of the upper aspect of the prostate gland. Etiology is uncertain. This could be on the basis of a distal colonic malignancy. There is no evidence for obstruction of the large or small bowel. There is an inguinal hernia on the left containing a portion of the sigmoid colon. Review of the vascular structures demonstrates multifocal atherosclerotic calcification of the abdomi nal aorta and its branches, particularly the infrarenal abdominal aorta and the pelvic arterial structures. No lymphadenopathy is seen within the abdomen or pelvis. Review of the osseous structures of the abdomen and pelvis demonstrates degenerative change of the b ilateral hips, bilateral sacroiliac joints, and of the lumbar spine, particularly the lower lumbar spine facet joints. IMPRESSION: 1. Interval decrease in size of right hepatic lesion. 2. Prominent coronary arterial calcification. 3. Nonspecific distal colonic wall thickening which may signify malignancy. No lymphadenopathy is shayy reciated within the abdomen/pelvis. The anus is not optimally assessed on this examination. Evaluation of the rectum and anus for local malignancy could be best performed via pelvic MRI. Transcribed Date/Time: 06/26/2019 12:07 PM
[2019-06-26] MEDS ORDERED: Iopamidol 370 76% 100 ML VIAL ONE (12:46)
== END 2019-06-26 09:39 | disposition home or self-care (01) ==
LOC: CT 09:38
PROVIDERS: ATTEND Internal Medicine Hematology & Oncology
DX: C21.1 Malignant neoplasm of anal canal (principal); K76.9 Liver disease, unspecified; I25.10 Atherosclerotic heart disease of native coronary artery without angina pectoris; K63.89 Other specified diseases of intestine
CPT/HCPCS: 74177; 82565; Q9967

== ENCOUNTER 2019-10-13 09:45 | Outpatient (CLI) | payer MEDICARE ==
--- NOTE | 2019-10-13 12:33 | CT ---
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 COMPARISON: 06/26/2019 FINDINGS: Chronic changes in the lung bases are again seen. The 17 mm lesion in the right lobe of the liver is stable. No new liver lesions are seen. The spleen, pancreas, adrenal glands and kidneys are normal. N o calcified gallstones are seen. The spiculated mesenteric mass with coarse calcifications has enlarged in size and currently measures 3 (AP) x 2.5 (transverse) x 4 cm (CC) in the mid left abdomen. The small bowel loops are not abnormally dilated. There is a left inguinal hernia containing part of the colon without obstruction. There are vascular calcifications without evidence of aneurysmal dilatation of the abdominal aorta. T here are degenerative changes of the spine. No osteolytic or osteoblastic lesions are noted. IMPRESSION: 1. Interval increase in the size of the carcinoid tumor since 06/26/2019. 2. Stable 17 mm right liver lobe lesion. POS: [facility]
[2019-10-13] MEDS ORDERED: Iopamidol 370 76% 100 ML VIAL ONE (13:41)
== END 2019-10-13 09:46 | disposition home or self-care (01) ==
LOC: CT 09:45
PROVIDERS: ATTEND Internal Medicine Hematology & Oncology
DX: C7B.02 Secondary carcinoid tumors of liver (principal); C7B.04 Secondary carcinoid tumors of peritoneum; C21.1 Malignant neoplasm of anal canal; C7A.00 Malignant carcinoid tumor of unspecified site; C00.1 Malignant neoplasm of external lower lip; K76.9 Liver disease, unspecified
CPT/HCPCS: 74177; 82565; Q9967

== ENCOUNTER 2020-12-01 20:24 | Inpatient (IN) | payer MEDICARE ==
[2020-12-01 21:19] LABS: #Eosinphils 0.2 thou/uL (0.0-0.7); #Lymphocytes 1.3 thou/uL (1.20-3.40); #Monocytes 0.9 thou/uL (0.11-0.59); #Neutrophils 6.1 thou/uL (1.40-6.50); %Basophils 0.2 % (0.0-1.0); %Eosinophils 1.8 % (0.0-10.0); Hemoglobin 10.2 g/dL (14.0-18.0); Mean Corpuscular HGB CONC 30.6 g/dL (32.0-36.0); Mean Corpuscular Hemoglobin 26.1 pg (27.0-31.0); Mean Platelet Volume 9.7 fL (7.4-10.4); Platelet Count 225 thou/uL (130-400); RBC Distribution Width 16.9 % (11.5-14.5); Red Blood Cell (RBC) Count 3.93 mill/uL (4.70-6.10); White Blood Cell (WBC) Count 8.5 thou/uL (4.8-10.8)
[2020-12-01 21:39] LABS: Phosphorus 3.6 mg/dL (2.3-4.7)
[2020-12-01 21:41] LABS: ALT (SGPT) 24 U/L (8-55); AST (SGOT) 26 U/L (5-34); Alkaline Phosphatase 113 U/L (40-110); Anion Gap 14 mmol/L (10-20); BUN (Urea Nitrogen) 19 mg/dL (8.4-25.7); Bilirubin, Total 0.8 mg/dL (0.2-1.2); Calc. Creatinine Clearance 0 mL/min (70-130); Calcium 8.1 mg/dL (7.8-10.44); Carbon Dioxide 26 mmol/L (23-31); Chloride 102 mmol/L (98-107); Globulin 3.3 g/dL (2.4-3.5); Glucose 103 mg/dL (83-110); Protein, Total 6.3 g/dL (5.8-8.1); Sodium 138 mmol/L (136-145)
[2020-12-01] MEDS ORDERED: Magnesium 2 GM/50 ML BAG (IN WATER) ONE (21:57)
--- NOTE | 2020-12-01 22:00 | ULT ---
EXAM: Right lower extremity venous Doppler HISTORY: Right lower extremity pitting edema. Recent fall. FINDINGS: Grayscale, color-flow, Doppler evaluation, spectral analysis of the right lower extremity venous stru ctures is performed with 2-D imaging. The right common femoral, superficial femoral, popliteal, posterior tibial, proximal greater saphenous and profunda femoral veins are imaged. There is normal luminal compressibility, flow, and augmentation in the visualized deep venous structu res of the right lower extremity. There is prominent subcutaneous soft tissue swelling seen at the level of the catheter and at the ank le. IMPRESSION: 1. No evidence of a deep vein thrombosis in the visualized deep venous structures right lower extremi ty. 2. Prominent subcutaneous edema distal right lower extremity.
--- NOTE | 2020-12-01 22:11 | PDOC.FPRHP ---
- History of Present Illness Chief Complaint: Fall History of Present Illness: 85 yo M presents from [facility] with complaint of right leg and left hand swelling after two falls that he has had in the past couple days. He denies any injuries from the fall and states that he was trying to get out of bed when he fell. He says that after the fall, he was had right leg and left hand swelling, but denies any pain. Denies any chest pain, shortness of breath, dizziness/lightheadedness. Does endorse a cough for the past two days, but no rhinorrhea, sore throat, fever/chills. ED Course: Mg 2mg Ditiazem IVP, then drip started Rocephin and Azithro 500mL NS CXR: Bilateral interstitial and patchy parenchymal airspace opacities greater on the right worrisome for multifocal pneumonia. Evaluation of Covid status is suggested RLE: 1. No evidence of a deep vein thrombosis in the visualized deep venous structures right lower extremity. 2. Prominent subcutaneous edema distal right lower extremity - Allergies/Adverse Reactions Allergies Allergy/AdvReac Type Severity Reaction Status Date / Time No Known Allergies Allergy Verified 01/19/20 07:15 - Home Medications Medication Instructions Recorded Confirmed Type Pantoprazole [Protonix] 20 mg PO DAILY 04/22/13 01/14/19 History Rivaroxaban [Xarelto] 20 mg PO DAILY 04/22/13 01/14/19 History Torsemide 10 mg PO DAILY 04/22/13 01/14/19 History Benazepril HCl 40 mg PO QAM 04/24/13 01/14/19 History Ascorbic Acid [Vitamin C] 500 mg PO DAILY 07/20/15 01/14/19 History Amiodarone HCl 200 mg PO DAILY 10/16/18 01/14/19 History Cholecalciferol (Vitamin D3) 1,000 unit PO DAILY 10/16/18 01/14/19 History [Vitamin D] Tamsulosin HCl 0.4 mg PO DAILY 10/16/18 01/14/19 History Loperamide HCl [Imodium A-D] 2 mg PO Q4HR PRN 12/26/18 01/14/19 History Nystatin [Nystatin Powder] 1 applic TOP BID PRN 12/26/18 01/14/19 History Saccharomyces Boulardii [Digestive 500 mg PO DAILY 12/26/18 01/14/19 History Probiotic] - History PMHx: -Afib -GERD -HTN -HLD -BPH PSHx: -Appedectomy -L BKA FHx: -Non contributory Social: -Lives in [place], no TAD use - Review of Systems General: denies: fatigue ENT: denies: nasal congestion Respiratory: reports: cough. denies: congestion, shortness of breath Cardiovascular: denies: chest pain, palpitation Gastrointestinal: denies: nausea, vomiting, diarrhea, constipation Genitourinary: denies: dysuria, polyuria Skin: denies: rashes, lesions, jaundice, itching Musculoskeletal: reports: swelling. denies: pain, tenderness Neurological: denies: numbness, syncope - Vital signs BP: 120/101, Pulse: 145, Resp: 22, Pain: 0, O2 sat: 95 on (Room Air), Time: 12/01/2020 21:48. - Physical Exam Constitutional: NAD, awake, alert and oriented HEENT: normocephalic and atraumatic, grossly normal vision, grossly normal hearing, MMM Neck: supple Heart: RRR, normal S1/S2, no murmurs/rubs/gallops Lungs: no respiratory distress, no rales/rhonchi, other (expiratory wheezing noted at bases during coughing episodes) Abdomen: soft, non-tender, bowel sounds present Musculoskeletal: other (L BKA noted, RLE noted to have 3+ pitting edema) Neurological: no focal deficit Skin: capillary refill <2 seconds Heme/Lymphatic: no petechia Psychiatric: normal mood and affect, good judgment and insight, intact recent and remote memory FMR H&P: Results - Labs Result Diagrams: 12/01/20 20:59 12/02/20 03:10 Lab results: WBC 8.5 thou/uL (4.8-10.8) 12/01/20 20:59 Hgb 10.2 g/dL (14.0-18.0) L 12/01/20 20:59 Hct 33.4 % (42.0-52.0) L 12/01/20 20:59 MCV 85.0 fL (78.0-98.0) 12/01/20 20:59 Plt Count 225 thou/uL (130-400) 12/01/20 20:59 Neutrophils % 72.0 % (42.0-75.0) 12/01/20 20:59 Sodium 138 mmol/L (136-145) 12/01/20 20:59 Potassium 4.0 mmol/L (3.5-5.1) 12/01/20 20:59 Chloride 102 mmol/L (98-107) 12/01/20 20:59 Carbon Dioxide 26 mmol/L (23-31) 12/01/20 20:59 BUN 19 mg/dL (8.4-25.7) 12/01/20 20:59 Creatinine 1.33 mg/dL (0.7-1.3) H 12/01/20 20:59 Glucose 103 mg/dL (83-110) 12/01/20 20:59 Calcium 8.1 mg/dL (7.8-10.44) 12/01/20 20:59 Total Bilirubin 0.8 mg/dL (0.2-1.2) 12/01/20 20:59 AST 26 U/L (5-34) 12/01/20 20:59 ALT 24 U/L (8-55) 12/01/20 20:59 Alkaline Phosphatase 113 U/L (40-110) H 12/01/20 20:59 B-Natriuretic Peptide 588.6 pg/mL (0-100) H 12/01/20 20:59 Serum Total Protein 6.3 g/dL (5.8-8.1) 12/01/20 20:59 Albumin 3.0 g/dL (3.4-4.8) L 12/01/20 20:59 FMR H&P: A/P - Plan ##Atrial Fibrillation RVR -noted to be in RVR upon eval in ER, s/p dilt push and drip started now -will titrate as necessary during night -BP holding stable -home meds include xarelto, metoprolol, and amiodarone -trop 0.016 -admitted to telemetry ##RLE edema -most likely due to poor CO due to RVR -will start home diuretic torsemide to alleivate sxs -r/o DVT done in ER -no dx of HF, ECHO in 12/2018 showed EF of 60-65% ##COVID PUI -CXR indicative of multifocal PNA, reported cough with findings noted on PE -COVID and flu pending -abx given in ER, will not continue -procal to be obtained ##Mechanical Falls -patient has hx of orthostatic hypotension and admissions due to falls 2/2 afib RVR -believe that patient's falls were 2/2 to mechanical causes, will halt syncopal workup at this time ##Normocytic Anemia -Hgb noted to be 10.2 -no iron studies noted in past -iron, TIBC, % sat, and B12, folate ordered Chronic Conditions: ##HTN ##HLD ##GERD ##BPH -continue home meds CODE: FULL DIET: Regular VTE: Xarelto PCP: Gary ([facility]) Dispo: admitted to inpatient telemetry FMR H&P: Upper Level - Plan Date/Time: 12/01/20 2210 I, Tacho Esquivel [email or web address], have evaluated this patient and agree with findings/plan as outlined by product management intern resident. Pertinent changes/additions are listed here. 85yo M with pmh of afib presents from [place] after having increased edema in RLE. Pt complains that he is "not feeling good:" but otherwise no problems. denies CP/palpitations or pain of any kind. reports slight cough of last few days. on exam pt is tachycardic and has irregular rhythm. lungs CTAB. RLE has 2+ pitting edema, LLE is amputated. A/P afib with RVR A- hx of afib but RVR possibly triggered by viral URI vs. PNA as described below. Initially responded to Diltiazem push in ED 10mg but HR increasing back to 130s, BPs are stable. P- start diltiazem drip 5mg/hr, titrate as necessary -plan to restart home metoprolol and amiodarone at higher doses in AM once we get controll of rate then wean drip -continue home xarelto Edema a- likely 2/2 poor cardiac outpt. US showed no DVT. Echo december 2018 showed EF 60-65%. BNP 590. Pt was given 1L IVF in ED. P- monitor for improvment after HR improves -consider repeat echo tomorrow vs. outpt -KVO COVID PUI A- pt has mild cough but otherwise no respiratory sx. He is afebrile. CXR showes radha interstitial pattern. s/p one dose rocephin and azithro P- covid swab and precautions -procal. -DC ABX for now Frequent falls A- sounds to be mostly mechanical pt history, he has known hx of orthostatic hypotension P- fall precautions -no need for syncope workup at this time. HLD, Dementia, HTN, GERD, BPH, orthostatic hypotension -home medications CODE: FULL PCP: [facility] dispo: inpt, tele. Expect > 2 midnights Addendum - Attending - Attending Attestation Date/Time: 12/01/20 4056 I personally evaluated the patient and discussed the management with resident team. I agree with the History, Examination, Assessment and Plan documented above with any addition or exceptions noted below. Admit to tele with respiratory precautions. Noted to be in Afib with RVR. Hx of and is currently on rate and rhythm control. Started dilt drip. Tolerating well. COVID pending but concern due to symptoms and CXR. Cards in AM as needed. Respiratory support as needed. Hydrate. ABrayMD
--- NOTE | 2020-12-01 22:43 | RAD ---
EXAM: CHEST ONE VIEW HISTORY: Shortness of breath. Right leg and left hand swelling. COMPARISON: 12/25/2018 FINDINGS: Cardiac silhouette is magnified by projection but does appear mildly enlarged. There are increased in terstitial opacities bilaterally with patchy parenchymal airspace opacities seen in the right midlung zone and greater at the right lung base worrisome for bilateral multifocal pneumonia. Questio n of minimal left pleural effusion versus pleural and parenchymal scarring. Right lateral costophrenic angle is excluded from view. No other interval change IMPRESSION: Bilateral interstitial and patchy parenchymal airspace opacities greater on the right worrisome for m ultifocal pneumonia. Evaluation of Covid status is suggested.
[2020-12-01] MEDS ORDERED: cefTRIAXone\\ROCEPHIN 2 GM VIAL ONE (23:02)
[2020-12-01] MEDS ORDERED: Azithromycin 500 MG VIAL ONE (23:02)
[2020-12-01] MEDS ORDERED: Acetaminophen 650 MG Suppository PR PRN (23:20)
[2020-12-01] MEDS ORDERED: Acetaminophen 325 MG TAB PO PRN (23:20)
[2020-12-01] MEDS ORDERED: Diltiazem 125 MG/25 ML ONE (23:26)
[2020-12-01] MEDS ORDERED: Diltiazem 125 MG in Sodium Chloride 0.9% 100 ML IVPB SCH (23:45)
[2020-12-02 01:53] LABS: Troponin I 0.022 ng/mL (< 0.028)
[2020-12-02 01:57] LABS: SARS-CoV-2 NAA Rapid Test Not Detected (NotDetected)
[2020-12-02 04:01] LABS: Anion Gap 14 mmol/L (10-20); BUN (Urea Nitrogen) 18 mg/dL (8.4-25.7); Calc. Creatinine Clearance 0 mL/min (70-130); Calcium 7.6 mg/dL (7.8-10.44); Carbon Dioxide 24 mmol/L (23-31); Chloride 105 mmol/L (98-107); Glucose 97 mg/dL (83-110); Iron 9 ug/dL (65-175); Iron Binding Capacity, Total 265 mcg/dL (261-462); Potassium 3.7 mmol/L (3.5-5.1); Sodium 139 mmol/L (136-145)
[2020-12-02 04:05] LABS: Troponin I 0.024 ng/mL (< 0.028)
[2020-12-02 06:15] LABS: Ferritin 38.76 ng/mL (22-322)
--- NOTE | 2020-12-02 06:38 | PDOC.FM ---
- Subjective Subjective: Patient is AAOx3. Patient denies LEWIS, CP, SOB, abdominal pain this morning. He reports that he would like to eat breakfast and move rooms. He denies questions or concerns this morning. - Objective MAR Reviewed: Yes Result Diagrams: 12/01/20 20:59 12/02/20 03:10 Phys Exam - Physical Examination Constitutional: NAD dry MMs Neck: supple decreased breath sounds on the right irrerularly, irregular Gastrointestinal: soft, non-tender, positive bowel sounds 1+ pitting edema on the RLE, LLE amputated Psychiatric: A&O x 3 Deviation from normal: abrasion on RUE, possible seborrheic dermatitis on nose Dx/Plan - Plan Plan: 1. Atrial Fibrillation RVR -patient has known history of Afib on xarelto, metoprolol, amiodarone -likely 2/2 to viral vs atypical PNA -dilt drip at 9 with rate of 112, will increase to 10 as BP is stable -trop 0.016 > 0.022 > 0.024 -admitted to telemetry -Responded to fluid bolus in ED, will bolus 500 mls 2. Possible Viral vs. Atypical PNA -Chest Xray concerning for PNA -Rapid COVID negative -Procal: 0.06 -will continue azithromycin 3. RLE edema -could be 2/2 to poor CO due to RVR -home diuretic torsemide -although patient does have edema, he also appears dry on exam, will bolus 500 mls of LR -no dx of HF, ECHO in 12/2018 showed EF of 60-65% 4. Mechanical Falls -patient has hx of orthostatic hypotension and admissions due to falls 2/2 afib RVR -believe that patient's falls were 2/2 to mechanical causes 5. Normocytic Anemia -Hgb noted to be 10.2 -no iron studies noted in past -iron: 9, TIBC: 265, % sat: 3 -BID ferrous sulfate ordered Chronic Conditions: Continue home meds for chronic conditions including HTN, HLD, GERD, BPH Dispo: continue medical management on tele, continue azithromycin for possible PNA
[2020-12-02] MEDS ORDERED: Lactated Ringer's 500 ML IV SCH (09:00)
[2020-12-02] MEDS: Rivaroxaban 10 MG TAB PO SCH (09:16)
[2020-12-02] MEDS: Tamsulosin HCl 0.4 MG CAP PO SCH (09:16)
[2020-12-02] MEDS: Torsemide 10 MG TAB PO SCH (09:17)
[2020-12-02] MEDS ORDERED: Ascorbic Acid 500 mg Chewable Tablet ONE (09:19)
[2020-12-02] MEDS: Ascorbic Acid 500 mg Chewable Tablet PO SCH (09:19)
[2020-12-02] MEDS ORDERED: Diltiazem 125 MG in Sodium Chloride 0.9% 100 ML IVPB SCH (09:30)
[2020-12-02] MEDS ORDERED: Amiodarone 200 MG TAB PO SCH (12:15)
--- NOTE | 2020-12-02 14:48 | PDOC.BPN ---
- Brief Progress Note Encounter Date: 12/02/20 Encounter Time: 14:30 Continuity Provider Note by PCP Sweta Vega DO, PGY-2 (PCP for [facility]) Mr. Peterson is seeing at bedside this afternoon on the telemetry unit. States he is feeling okay. I was notified yesterday evening (12/01) that patient's heart rate was in the 140s, sustained and advised that patient be taken to [facility] for evaluation. He was subsequently found to be in AFib with RVR and admitted to the [facility] medicine service. He currently denies any complaints. Exam: NC/AT. Equal chest rise and fall. No respiratory distress. Tachycardic, irregular rhythm. Abdomen soft, nontender. 1+ pitting edema bilaterally. Alert, oriented to person and place. Assessment: 1. Atrial Fibrillation RVR 2. Possible Viral vs. Atypical vs Aspiration PNA 3. RLE edema 4. Mechanical Falls 5. Normocytic Anemia 6. Chronic Conditions: HTN, HLD, GERD, BPH, Dementia w/o behavioral disturbance, BKA left, abdominal hernia Plan: I have reviewed patient's home medications with [facility] records and they are accurate. Patient was evaluated by loan closer at [facility] on 11/29/20 and recommended he be placed on BRAT diet, will relay this to inpatient team. Patient is at risk for aspiration but eats typically per family request, would consider discussion with family on diet requests pending Speech therapy evaluation here. Due to known aspiration risk would consider coverage for aspiration pneumonia. Patient has known dementia, at baseline he is aware of person and place and typically the year. 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 Discussed code status with patient. He has an out of hospital DNR which [facility] will fax to hospital. He confirms with me that he is DNR-DNI. Requests we call his son for medical decisions.
[2020-12-02 14:53] VITALS: BMI 23.6
[2020-12-02] MEDS: Ampicillin/Sulbactam 1.5 GM in Sodium Chloride 0.9% 100 ML IVPB SCH ×2 (17:22→21:08)
[2020-12-02] MEDS: Ferrous Sulfate 325 MG TAB PO SCH (17:22)
[2020-12-02] MEDS: Diltiazem 125 MG in Sodium Chloride 0.9% 100 ML IVPB SCH (20:06)
[2020-12-03] MEDS: Ampicillin/Sulbactam 1.5 GM in Sodium Chloride 0.9% 100 ML IVPB SCH ×4 (04:33→21:22)
[2020-12-03 04:56] LABS: #Eosinphils 0.1 thou/uL (0.0-0.7); #Lymphocytes 0.7 thou/uL (1.20-3.40); #Monocytes 0.8 thou/uL (0.11-0.59); #Neutrophils 8.7 thou/uL (1.40-6.50); %Eosinophils 0.6 % (0.0-10.0); %Lymphocytes 7.1 % (21.0-51.0); %Monocytes 7.4 % (0.0-10.0); %Neutrophils 84.9 % (42.0-75.0); Hemoglobin 9.2 g/dL (14.0-18.0); Mean Corpuscular Hemoglobin 25.2 pg (27.0-31.0); Mean Platelet Volume 9.2 fL (7.4-10.4); Platelet Count 242 thou/uL (130-400); RBC Distribution Width 16.9 % (11.5-14.5); Red Blood Cell (RBC) Count 3.65 mill/uL (4.70-6.10); White Blood Cell (WBC) Count 10.2 thou/uL (4.8-10.8)
[2020-12-03 04:58] LABS: Anion Gap 12 mmol/L (10-20); BUN (Urea Nitrogen) 15 mg/dL (8.4-25.7); Calc. Creatinine Clearance 59 mL/min (70-130); Calcium 7.8 mg/dL (7.8-10.44); Carbon Dioxide 27 mmol/L (23-31); Chloride 105 mmol/L (98-107); Glucose 112 mg/dL (83-110); Potassium 3.6 mmol/L (3.5-5.1); Sodium 140 mmol/L (136-145)
--- NOTE | 2020-12-03 05:24 | PDOC.FM ---
- Subjective Subjective: Patient denies any LEWIS, CP, SOB, Abdominal pain this morning. He failed his speech evaluation yesterday, but both patient and son have decided to eat with risks. The patient is currently on 2L NC. Remains in Afib with RVR - Objective MAR Reviewed: Yes Vital Signs & Weight: Vital Signs (12 hours) Temp Pulse Resp BP Pulse Ox 12/03/20 03:35 97.3 F L 110 H 20 124/86 93 L 12/02/20 23:30 128 H 20 122/62 96 12/02/20 19:52 97.5 F L 124 H 18 128/84 94 L Weight Weight 79.124 kg Result Diagrams: 12/03/20 04:20 12/03/20 04:20 EKG Reviewed by me: Yes (Afib with RVR, rates up to 130) Phys Exam - Physical Examination Constitutional: NAD HEENT: moist MMs Neck: no JVD, supple coarse breath sounds on the right, NC in place irregularly, irregular Gastrointestinal: soft, non-tender, positive bowel sounds Musculoskeletal: pulses present 1+ edema on the RLE Neurological: non-focal, normal sensation Psychiatric: normal affect, A&O x 3 Skin: no rash Deviation from normal: abrasion on RUE Dx/Plan - Plan Plan: 1. Atrial Fibrillation RVR -patient has known history of Afib on xarelto, metoprolol, amiodarone -likely 2/2 to viral vs atypical vs aspiration PNA -patient was restarted on home metoprolol and amiodarone yesterday and remained in RVR, dilt drip was restarted and is currently running at 7.5, patient's home metoprolol was increased to 50 -if patient remains in RVR after home meds, will likely consult cardiology -trop 0.016 > 0.022 > 0.024 2. Possible Viral vs. Atypical PNA vs. Aspiration PNA -Chest Xray concerning for PNA -Rapid COVID negative -Procal: 0.06 > 0,06 -will continue azithromycin (2), started on Unasyn (12/02) -patient failed speech eval but both patient and son have chosen to "eat with risks" 3. RLE edema -could be 2/2 to poor CO due to RVR -home diuretic torsemide -no dx of HF, ECHO in 12/2018 showed EF of 60-65% 4. Mechanical Falls -patient has hx of orthostatic hypotension and admissions due to falls 2/2 afib RVR -believe that patient's falls were 2/2 to mechanical causes 5. Normocytic Anemia -Hgb noted to be 10.2, stable -iron: 9, TIBC: 265, % sat: 3 -BID ferrous sulfate ordered Chronic Conditions: Continue home meds for chronic conditions including HTN, HLD, GERD, BPH Dispo: continue medical management on tele, continue azithromycin and unasyn for possible PNA Addendum - Attending - Attending Attestation Date/Time: 12/03/20 3503 I personally evaluated the patient and discussed the management with Dr. Uriarte. I agree with the History, Examination, Assessment and Plan documented above with any addition or exceptions noted below. Patient possibly with Afib with RVR 2/2 aspiration vs hypervolemia. He is volume overloaded today. Will diurese, strict I/O's. Cards consult if no improvement.
[2020-12-03] MEDS: Ascorbic Acid 500 mg Chewable Tablet PO SCH (08:51)
[2020-12-03] MEDS: Azithromycin 250 MG TAB PO SCH (08:51)
[2020-12-03] MEDS: Rivaroxaban 10 MG TAB PO SCH (08:52)
[2020-12-03] MEDS: Amiodarone 200 MG TAB PO SCH (08:52)
[2020-12-03] MEDS: Ferrous Sulfate 325 MG TAB PO SCH ×2 (08:52→16:34)
[2020-12-03] MEDS: Cholecalciferol 1,000 UNITS (25 MCG) TAB PO SCH (08:52)
[2020-12-03] MEDS: Diltiazem 125 MG in Sodium Chloride 0.9% 100 ML IVPB SCH (08:52)
[2020-12-03] MEDS: Tamsulosin HCl 0.4 MG CAP PO SCH (08:52)
[2020-12-03] MEDS: Torsemide 10 MG TAB PO SCH (09:43)
[2020-12-03] MEDS ORDERED: Furosemide 20 MG/2 ML VIAL SLOW IVP SCH (11:45)
--- NOTE | 2020-12-03 18:40 | EKG ---
Test Reason : Blood Pressure : / mmHG Vent. Rate : 144 BPM Atrial Rate : 080 BPM P-R Int : 000 ms QRS Dur : 082 ms QT Int : 324 ms P-R-T Axes : 000 -40 021 degrees QTc Int : 501 ms Atrial fibrillation with rapid ventricular response Left axis deviation Low voltage QRS Possible Lateral infarct , age undetermined Abnormal ECG Confirmed by ESPINOZA STONER ([id number]), editor managing newspaper OJSE ÁLVAREZ ([id number]) on 12/03/2020 6:40:30 PM Referred By: Confirmed By:ESPINOZA STONER
[2020-12-03 23:31] LABS: Bacteria/HPF None Seen HPF (None Seen); Bilirubin Negative (Negative); Blood, Urine Negative (Negative); Clarity Clear (Clear); Glucose, Urine (Dipstick) Normal (Negative); Ketone, Urine Negative (Negative); Leukocyte Negative Leu/uL (Negative); Mucous/LPF Rare LPF (<2+); Nitrite Negative (Negative); Protein, Urine (Dipstick) Negative (Neg-Trace); RBC/HPF 0-3 HPF (0-3); Specific Gravity, Urine 1.012 (1.002-1.036); Squamous Epithelial None Seen HPF (0-3); Urobilinogen Normal mg/dL (Less than 2); WBC/HPF 0-3 HPF (0-3)
[2020-12-03 23:33] LABS: Urine Culture Reflex No No
[2020-12-04] MEDS: Ampicillin/Sulbactam 1.5 GM in Sodium Chloride 0.9% 100 ML IVPB SCH ×4 (03:54→22:02)
[2020-12-04 04:52] LABS: #Eosinphils 0.1 thou/uL (0.0-0.7); #Lymphocytes 0.6 thou/uL (1.20-3.40); #Monocytes 0.7 thou/uL (0.11-0.59); %Eosinophils 0.8 % (0.0-10.0); %Lymphocytes 6.7 % (21.0-51.0); %Monocytes 7.5 % (0.0-10.0); Mean Corpuscular HGB CONC 29.6 g/dL (32.0-36.0); Mean Corpuscular Hemoglobin 24.9 pg (27.0-31.0); Mean Corpuscular Volume 84.1 fL (78.0-98.0); Mean Platelet Volume 9.3 fL (7.4-10.4); Platelet Count 253 thou/uL (130-400); RBC Distribution Width 16.7 % (11.5-14.5); White Blood Cell (WBC) Count 9.4 thou/uL (4.8-10.8)
[2020-12-04 05:06] LABS: Anion Gap 14 mmol/L (10-20); BUN (Urea Nitrogen) 18 mg/dL (8.4-25.7); Calc. Creatinine Clearance 57 mL/min (70-130); Calcium 7.9 mg/dL (7.8-10.44); Carbon Dioxide 25 mmol/L (23-31); Chloride 105 mmol/L (98-107); Glucose 115 mg/dL (83-110); Potassium 3.6 mmol/L (3.5-5.1); Sodium 140 mmol/L (136-145)
--- NOTE | 2020-12-04 05:39 | PDOC.FM ---
- Subjective Subjective: Patient remained tachycardic overnight and his dilt drip was tuned up to 10. Early this morning, patient was noted to have increased O2 requirement and SOB. He was turned up to 5L NC with saturations in the low 90s. Night residents evaluated the patient and ordered a STAT chest xray and ABG. During my evaluation this morning, the patient remained on 5L. He reported difficulty breathing, but denied CP, LEWIS, Abdominal pain, N/V. The patient was AAOx3. - Objective MAR Reviewed: Yes Vital Signs & Weight: Vital Signs (12 hours) Temp Pulse Resp BP Pulse Ox 12/04/20 05:21 91 L 12/04/20 03:33 98.2 F 107 H 22 H 135/62 93 L 12/03/20 23:36 94 L 12/03/20 23:30 128 H 20 119/79 94 L 12/03/20 20:00 95 12/03/20 19:50 98.3 F 121 H 18 120/72 95 Weight Weight 79.634 kg I&O: 12/02/20 12/03/20 12/04/20 06:59 06:59 06:59 Intake Total 200 Output Total 200 Balance 0 Result Diagrams: 12/04/20 04:33 12/04/20 04:33 EKG Reviewed by me: Yes (Afib 100-130s) Phys Exam - Physical Examination Constitutional: NAD HEENT: PERRLA NC in place Neck: supple, full ROM crackles heard bilateraly, R>L irregularly, irregular Gastrointestinal: soft, non-tender, positive bowel sounds 1+ pitting edema on RLE Neurological: non-focal Psychiatric: A&O x 3 Deviation from normal: abrasion to RUE Dx/Plan - Plan Plan: 1. Acute Hypoxic Respiratory Failure - likely 2/2 to PNA vs. Fluid overload - currently on 5 L NC with O2 sats in the low 90s - ABG: pH of 7.49, pO2 59.3, pCO2 36.6 - s/p 20 IV lasix yesterday, 80 IV lasix ordered for today - on antibiotics for possible PNA, initial COVID test negative, will obtain repeat - Patient is a DNR-DNI 2. Atrial Fibrillation RVR -patient has known history of Afib on xarelto, metoprolol, amiodarone -likely 2/2 to viral vs atypical vs aspiration PNA -patient was restarted on home metoprolol and amiodarone and remained in RVR, dilt drip running at 10, patient's home metoprolol was increased to 50 -will discuss case with Cardiology today (12/04) -trop 0.016 > 0.022 > 0.024 3. Possible Viral vs. Atypical PNA vs. Aspiration PNA -Chest Xray concerning for PNA -Rapid COVID negative, will obtain 2nd COVID test as clinical picture is c oncerning for COVID PNA -Procal: 0.06 > 0.06 -CRP and ferritin pending -will continue azithromycin (12/01), started on Unasyn (12/02) -patient failed speech eval but both patient and son have chosen to "eat with risks" 4. RLE edema -could be 2/2 to poor CO due to RVR -home diuretic torsemide, lasix as above -no dx of HF, ECHO in 12/2018 showed EF of 60-65% 5. Mechanical Falls -patient has hx of orthostatic hypotension and admissions due to falls 2/2 afib RVR -believe that patient's falls were 2/2 to mechanical causes 6. Normocytic Anemia -Hgb noted to be 10.2, stable -iron: 9, TIBC: 265, % sat: 3 -BID ferrous sulfate ordered Chronic Conditions: Continue home meds for chronic conditions including HTN, HLD, GERD, BPH Addendum - Attending - Attending Attestation Date/Time: 12/04/20 1100 I personally evaluated the patient and discussed the management with Dr. Uriarte and team. I agree with the History, Examination, Assessment and Plan documented above with any addition or exceptions noted below. Patient worsening and on review of course I now suspect FN Covid result. Place in precautions. Will again attempt diuresis with IV lasix 80. Cardiology consultation as I think his RVR may be appropriate for possible sepsis. Guarded prognosis.
[2020-12-04 05:49] LABS: Actual Bicarbonate (HCO3a) 27.2 mEq/L (22-28); Base Excess (BEa) 3.7 mEq/L (-2.0 to +3.0); CO2 Tension 36.6 mmHg (35.0-45.0); Calcium, Ionized (arterial) 1.11 mmol/L (1.12-1.30); Carboxyhemoglobin (COHb) 1.4 gm% (0.0-3.0); Hemoglobin (Hb) 9.6 g/dL (14.0-18.0); pH, Arterial 7.49 (7.35-7.45)
[2020-12-04 05:51] LABS: O2 Tension (PaO2), arterial 59.3 mmHg (> 60.0)
[2020-12-04 05:52] LABS: Puncture Site LRA
[2020-12-04] MEDS ORDERED: Furosemide 100 MG/10 ML VIAL SLOW IVP SCH (08:15)
--- NOTE | 2020-12-04 08:30 | RAD ---
CHEST 1 VIEW: Date: 12/04/2020 INDICATION: History of dyspnea. COMPARISON: Prior exam dated 12/01/2020. IMPRESSION: Bilateral pneumonia is stable. Mild cardiomegaly is stable. Tiny bilateral pleural effusions persist. No pneumothorax is evident. POS: BH
[2020-12-04] MEDS: Ferrous Sulfate 325 MG TAB PO SCH ×2 (09:44→15:27)
[2020-12-04] MEDS: Rivaroxaban 10 MG TAB PO SCH (09:44)
[2020-12-04] MEDS: Cholecalciferol 1,000 UNITS (25 MCG) TAB PO SCH (09:44)
[2020-12-04] MEDS: Ascorbic Acid 500 mg Chewable Tablet PO SCH (09:44)
[2020-12-04] MEDS: Azithromycin 250 MG TAB PO SCH (09:45)
[2020-12-04] MEDS: Amiodarone 200 MG TAB PO SCH (09:45)
[2020-12-04] MEDS: Tamsulosin HCl 0.4 MG CAP PO SCH (09:45)
[2020-12-04] MEDS: Torsemide 10 MG TAB PO SCH (09:46)
--- NOTE | 2020-12-04 17:41 | CON ---
DATE OF CONSULTATION: HISTORY OF PRESENT ILLNESS: Mr. Dileep Peterson is an 85-year-old white male, patient of Dr. Quintero with paroxysmal atrial fibrillation. He has been cardioverted in the past and is on chronic amiodarone therapy. His last two office visits were in May and August 2020. These were via telephone since [facility] Therefore, it was unclear if he was in atrial fibrillation at that time. He now presents stating that he has had three falls over the last couple of days. With each fall, he remembers falling and remembers hitting the floor. There also is a question that he may have bilateral pneumonia on his chest x-ray. He has been placed on antibiotics and COVID thus far is negative. His atrial fibrillation rate has been somewhat difficult to control and he is currently on a Cardizem drip. The patient denies any palpitations or chest pain. He has mild shortness of breath and cough. No fever. PAST MEDICAL HISTORY: Paroxysmal atrial fibrillation. He has undergone cardioversion as well as previous ablation, hypertension, hyperlipidemia, benign prostatic hypertrophy. OPERATIONS: Cardioversion, ablation, appendectomy, and left ihrob-[id number] amputation. MEDICATIONS: 1. Amiodarone 100 mg daily. 2. Imodium p.r.n. 3. Metoprolol 25 mg q.a.m. 4. Pantoprazole 20 daily. 5. Xarelto 20 mg daily. 6. Flomax 0.4 mg q.p.m. 7. Torsemide 10 mg daily. ALLERGIES: NONE. REVIEW OF SYSTEMS: Unremarkable. PHYSICAL EXAMINATION: VITAL SIGNS: Blood pressure 120/72, pulse of 106, atrial fibrillation on the monitor. HEENT: PERRL. NECK: Supple. CHEST: Reveals coarse breath sounds. CARDIAC: S1 and S2 normal without any S3, S4, murmurs. ABDOMEN: Normal bowel sounds without tenderness. EXTREMITIES: Reveal left [id number] amputation. Right leg has 2 to 3+ pretibial edema. NEUROLOGICAL: Grossly intact. SKIN: Warm and dry. LABORATORY DATA: EKG, I do not see an EKG on the chart. COVID negative. Hemoglobin 9.2, hematocrit 30.3, white count 9400, platelets 253,000. PH 7.49, pCO2 of 36.6, PO2 of 59.3. Sodium 140, potassium 3.4, chloride 105, carbon dioxide 25, BUN 18, creatinine 1.04. IMPRESSION: 1. Paroxysmal atrial fibrillation, which may now be chronic. Currently, his rate is a somewhat difficult to control despite increasing metoprolol and Cardizem up to 10 mg/hour. 2. Pneumonia. 3. Hypertension. 4. Hypercholesterolemia. PLAN: TSH will be checked since it has been somewhat elevated recently. It is of concern that he continues to have three falling episodes over the last several days and is on Xarelto and consideration may be given to discontinuation of this. His rate has somewhat slowed that is in the low 100s. The Cardizem drip will be increased to 15 mg/hour. We will follow the patient with you. Job ID: [id number] [facility]
[2020-12-04 19:57] LABS: SARS-CoV-2 PCR by NAA Not Detected (NotDetected)
[2020-12-05] MEDS: Ampicillin/Sulbactam 1.5 GM in Sodium Chloride 0.9% 100 ML IVPB SCH ×4 (04:58→22:22)
[2020-12-05] MEDS: Diltiazem 125 MG in Sodium Chloride 0.9% 100 ML IVPB SCH ×3 (04:59→17:36)
[2020-12-05 05:23] LABS: #Eosinphils 0.1 thou/uL (0.0-0.7); #Lymphocytes 0.7 thou/uL (1.20-3.40); #Monocytes 0.9 thou/uL (0.11-0.59); #Neutrophils 8.3 thou/uL (1.40-6.50); %Eosinophils 1.4 % (0.0-10.0); %Lymphocytes 6.6 % (21.0-51.0); %Monocytes 9.1 % (0.0-10.0); Mean Corpuscular HGB CONC 30.3 g/dL (32.0-36.0); Mean Corpuscular Hemoglobin 25.4 pg (27.0-31.0); Mean Corpuscular Volume 83.8 fL (78.0-98.0); Mean Platelet Volume 9.1 fL (7.4-10.4); Platelet Count 253 thou/uL (130-400); RBC Distribution Width 16.8 % (11.5-14.5); Red Blood Cell (RBC) Count 3.56 mill/uL (4.70-6.10)
[2020-12-05 05:49] LABS: Anion Gap 14 mmol/L (10-20); BUN (Urea Nitrogen) 17 mg/dL (8.4-25.7); Calc. Creatinine Clearance 64 mL/min (70-130); Calcium 7.8 mg/dL (7.8-10.44); Carbon Dioxide 28 mmol/L (23-31); Chloride 103 mmol/L (98-107); Glucose 104 mg/dL (83-110); Sodium 142 mmol/L (136-145)
--- NOTE | 2020-12-05 06:06 | PDOC.FM ---
- Subjective Subjective: Pt sitting up in bed, being fed breakfast this morning. He repeatedly asked when he was going to get to go home. Currently on 5L NC. Denies SOB, CP, N/V. - Objective Vital Signs & Weight: Vital Signs (12 hours) Temp Pulse Resp BP Pulse Ox 12/05/20 04:25 97 12/05/20 04:00 97.8 F 99 18 117/68 93 L 12/04/20 20:00 97.5 F L 114 H 22 H 121/66 97 Weight Weight 79.634 kg I&O: 12/03/20 12/04/20 12/05/20 06:59 06:59 06:59 Intake Total 200 150 Output Total 200 650 Balance 0 -500 Result Diagrams: 12/05/20 04:30 12/05/20 04:30 Phys Exam - Physical Examination Constitutional: NAD Neck: supple, full ROM wheezing heard bilaterally tachycardic, irregularly irregular rhythm Gastrointestinal: soft, non-tender dependent edema 2+ pitting edema RLE Neurological: non-focal Psychiatric: normal affect Dx/Plan - Plan Plan: Plan: 1. Acute Hypoxic Respiratory Failure - likely 2/2 to PNA vs. Fluid overload - pt has known risk of aspiration w/ feeds, family has chosen "eat with risks" here and at [place] - currently on 5 L NC - ABG on 12/04: pH of 7.49, pO2 59.3, pCO2 36.6 - s/p 80 IV lasix yesterday, on home torsemide - on antibiotics for possible PNA, initial and repeat COVID test negative - pending RVP and echo - Patient is a DNR-DNI 2. Atrial Fibrillation RVR -patient has known history of Afib on xarelto, metoprolol, amiodarone -likely 2/2 to viral vs atypical vs aspiration PNA -patient was restarted on home metoprolol and amiodarone and remained in RVR, patient's home metoprolol was increased to 50 -cardiology consulted, Dr Espitia: increase dilt drip to 15mg/hr, consider stopping xarelto due to frequent falls, pending TSH 3. Possible Viral vs. Atypical PNA vs. Aspiration PNA -Chest Xray concerning for PNA -initial and repeat COVID neg -Procal: 0.06 > 0.06 -CRP 9.78 -will continue azithromycin (12/01) and Unasyn (2/5) -patient failed speech eval but both patient and son have chosen to "eat with risks" 4. RLE edema -could be 2/2 to poor CO due to RVR -home diuretic torsemide, lasix as above -no dx of HF, ECHO in 12/2018 showed EF of 60-65% 5. Mechanical Falls -patient has hx of orthostatic hypotension and admissions due to falls 2/2 afib RVR -believe that patient's falls were 2/2 to mechanical causes 6. Normocytic Anemia -Hgb noted to be 10.2, stable -iron: 9, TIBC: 265, % sat: 3 -BID ferrous sulfate ordered 7. Hypokalemia -likely due to 80mg IV lasix yesterday -will replace and continue to monitor Chronic Conditions: Continue home meds for chronic conditions including HTN, HLD, GERD, BPH Code: DNR-DNI IVF: SL Diet: eat with risk PCP: Gary ([place]) Dispo: New oxygen requirement yesterday likely 2/2 PNA, continue to monitor resp status. A fib w/ RVR on dilt gtt. Cards consulted, appreciate recs Addendum - Attending - Attending Attestation Date/Time: 12/05/20 4086 I personally evaluated the patient and discussed the management with Dr. Montanez. I agree with the History, Examination, Assessment and Plan documented above with any addition or exceptions noted below.
[2020-12-05] MEDS ORDERED: Potassium Chloride 20 MEQ TAB PO SCH ×3 (06:15→18:00)
[2020-12-05] MEDS: Ferrous Sulfate 325 MG TAB PO SCH ×2 (08:26→16:16)
[2020-12-05] MEDS: Azithromycin 250 MG TAB PO SCH (08:26)
[2020-12-05] MEDS: Cholecalciferol 1,000 UNITS (25 MCG) TAB PO SCH (08:27)
[2020-12-05] MEDS: Ascorbic Acid 500 mg Chewable Tablet PO SCH (08:27)
[2020-12-05] MEDS: Tamsulosin HCl 0.4 MG CAP PO SCH (08:27)
[2020-12-05] MEDS: Rivaroxaban 10 MG TAB PO SCH (08:27)
[2020-12-05] MEDS: Amiodarone 200 MG TAB PO SCH (08:27)
[2020-12-05] MEDS: Torsemide 10 MG TAB PO SCH (08:28)
[2020-12-05] MEDS ORDERED: Furosemide 100 MG/10 ML VIAL SLOW IVP SCH (09:30)
[2020-12-05] MEDS ORDERED: Spironolactone 25 MG TAB PO SCH (09:30)
--- NOTE | 2020-12-05 11:08 | PRG ---
DATE OF SERVICE: 12/05/2020 SUBJECTIVE: Mr. Peterson is short of breath at rest. OBJECTIVE: VITAL SIGNS: Heart rate is 100. He is on intravenous diltiazem. Blood pressure is 100 systolic. NECK: Neck veins are normal. Carotids normal upstrokes. LUNGS: There is diffuse rales and rhonchi. CARDIAC: Irregularly irregular. ABDOMEN: Soft, nontender. EXTREMITIES: Severe edema. ASSESSMENT: 1. Congestive heart failure, diastolic, volume overloaded. 2. Atrial fibrillation, likely chronic. PLAN: 1. Add furosemide intravenously. 2. Add spironolactone. 3. Monitor potassium likely the goal of therapy will be rate control and monitoring and therapy of the diastolic heart failure. Job ID: [id number]
[2020-12-05 15:13] LABS: Hematocrit 29.5 % (37.5-51.0); RBC Folate Test Component 1244 ng/mL (>498)
[2020-12-05] MEDS ORDERED: Furosemide 40 MG/4 ML VIAL SLOW IVP SCH (18:00)
[2020-12-06] MEDS: Diltiazem 125 MG in Sodium Chloride 0.9% 100 ML IVPB SCH ×3 (03:33→19:44)
[2020-12-06] MEDS: Ampicillin/Sulbactam 1.5 GM in Sodium Chloride 0.9% 100 ML IVPB SCH ×4 (03:43→22:34)
[2020-12-06 04:58] LABS: #Eosinphils 0.1 thou/uL (0.0-0.7); #Lymphocytes 0.7 thou/uL (1.20-3.40); #Monocytes 0.9 thou/uL (0.11-0.59); %Basophils 0.2 % (0.0-1.0); %Lymphocytes 6.7 % (21.0-51.0); %Monocytes 8.2 % (0.0-10.0); %Neutrophils 83.9 % (42.0-75.0); Hemoglobin 9.1 g/dL (14.0-18.0); Mean Corpuscular HGB CONC 30.1 g/dL (32.0-36.0); Mean Corpuscular Hemoglobin 25.3 pg (27.0-31.0); Mean Platelet Volume 8.8 fL (7.4-10.4); Platelet Count 264 thou/uL (130-400); RBC Distribution Width 16.8 % (11.5-14.5); Red Blood Cell (RBC) Count 3.59 mill/uL (4.70-6.10); White Blood Cell (WBC) Count 10.7 thou/uL (4.8-10.8)
[2020-12-06 05:22] LABS: Anion Gap 15 mmol/L (10-20); BUN (Urea Nitrogen) 17 mg/dL (8.4-25.7); Calc. Creatinine Clearance 54 mL/min (70-130); Calcium 7.9 mg/dL (7.8-10.44); Carbon Dioxide 30 mmol/L (23-31); Chloride 103 mmol/L (98-107); Glucose 106 mg/dL (83-110); Potassium 3.8 mmol/L (3.5-5.1); Sodium 144 mmol/L (136-145)
--- NOTE | 2020-12-06 06:11 | PDOC.FM ---
- Subjective Subjective: Pt states he did well overnight. Nurse reports that he had urinary retention with a bladder scan showing >500mL, was straight cathed with output of 500mL. When asked if he has problems urinating at home he says he is unsure. Denies CP, SOB, N/V. - Objective Vital Signs & Weight: Vital Signs (12 hours) Temp Pulse Resp BP Pulse Ox 12/06/20 03:41 97.5 F L 98 18 102/72 94 L 12/06/20 03:38 94 L 12/06/20 00:00 88 22 H 106/67 94 L 12/05/20 20:00 97.3 F L 111 H 18 105/70 92 L Weight Weight 74.928 kg I&O: 12/04/20 12/05/20 12/06/20 06:59 06:59 06:59 Intake Total 150 830 Output Total 650 1000 Balance -500 -170 Result Diagrams: 12/06/20 04:30 12/06/20 04:30 Phys Exam - Physical Examination Constitutional: NAD Neck: supple, full ROM Respiratory: no wheezing, clear to auscultation bilateral Cardiovascular: no significant murmur irregularly irregular, normal rate Gastrointestinal: soft, non-tender, no distention 1+ pitting edema of RLE Neurological: non-focal Dx/Plan - Plan Plan: 1. Acute Hypoxic Respiratory Failure - likely 2/2 to Fluid overload vs PNA - pt has known risk of aspiration w/ feeds, family has chosen "eat with risks" here and at [place] - currently on 5 L NC, will wean as tolerated - s/p 100 IV lasix yesterday, edema improved, on home torsemide - cards consulted, Dr Quintero: added spironolactone, states pt has a hx of diastolic heart failure - on antibiotics for possible PNA, initial and repeat COVID test negative, RVP negative - Echo: EF 45-50%, mild hypertrophy - Patient is a DNR-DNI - plan to call pt's son who is MPOA and discuss goals of care and hospice 2. Atrial Fibrillation RVR -currently rate controlled on dilt gtt at 15mg/hr -patient has known history of Afib on xarelto, metoprolol, amiodarone -patient was restarted on home metoprolol and amiodarone and remained in RVR, patient's home metoprolol was increased to 50 -cardiology consulted: appreciate recs 3. Possible Viral vs. Atypical PNA vs. Aspiration PNA -Chest Xray concerning for PNA -initial and repeat COVID neg, RVP negative -Procal: 0.06 > 0.06 -CRP 9.78 -will continue azithromycin (2/) and Unasyn (2) -patient failed speech eval but both patient and son have chosen to "eat with risks" 4. RLE edema -could be 2/2 to poor CO due to RVR -diuretics as above -ECHO in 12/2018 showed EF of 60-65% -per Dr Quintero pt has hx of diastolic heart failure, pending echo 5. Mechanical Falls -patient has hx of orthostatic hypotension and admissions due to falls 2/2 afib RVR -believe that patient's falls were 2/2 to mechanical causes 6. Normocytic Anemia -Hgb noted to be 10.2, stable -iron: 9, TIBC: 265, % sat: 3 -BID ferrous sulfate ordered 7. Hypokalemia -resolved, K 3.8 -likely due to diuretics -will replace and continue to monitor 8. Subclinical Hypothyroidism -TSH 10.4, Free T4 normal -aware, no txt indicated 9. Urinary retention -home med flomax -will place laughlin and monitor I/Os Chronic Conditions: Continue home meds for chronic conditions including HTN, HLD, GERD, BPH Code: DNR-DNI IVF: SL Diet: eat with risk PCP: Gary ([place]) Dispo: Currenlty still requiring 5L NC, continue diuresing. A fib w/ RVR on dilt gtt. Cards consulted, appreciate recs Addendum - Attending - Attending Attestation Date/Time: 12/06/20 8982 I personally evaluated the patient and discussed the management with Dr. Montanez. I agree with the History, Examination, Assessment and Plan documented above with any addition or exceptions noted below. Considering the constellation of conditions and his general decline, I believe his life expectancy is less than 6 months. Will review care plan with family.
[2020-12-06] MEDS: Rivaroxaban 10 MG TAB PO SCH (09:27)
[2020-12-06] MEDS: Ferrous Sulfate 325 MG TAB PO SCH ×2 (09:27→16:28)
[2020-12-06] MEDS: Cholecalciferol 1,000 UNITS (25 MCG) TAB PO SCH (09:27)
[2020-12-06] MEDS: Azithromycin 250 MG TAB PO SCH (09:27)
[2020-12-06] MEDS: Ascorbic Acid 500 mg Chewable Tablet PO SCH (09:28)
[2020-12-06] MEDS: Tamsulosin HCl 0.4 MG CAP PO SCH (09:28)
[2020-12-06] MEDS: Amiodarone 200 MG TAB PO SCH (09:28)
[2020-12-06 14:44] LABS: Actual Bicarbonate (HCO3a) 31.7 mEq/L (22-28); Base Excess (BEa) 7.6 mEq/L (-2.0 to +3.0); CO2 Tension 42.7 mmHg (35.0-45.0); Calcium, Ionized (arterial) 1.12 mmol/L (1.12-1.30); Carboxyhemoglobin (COHb) 1.4 gm% (0.0-3.0); Hemoglobin (Hb) 10.3 g/dL (14.0-18.0); Potassium - ABG Lab 3.82 mmol/L (3.70-5.30); pH, Arterial 7.49 (7.35-7.45)
[2020-12-06 14:45] LABS: ALV-art Gradient 341.715 mmHg (0-20); O2 Tension (PaO2), arterial 54.1 mmHg (> 60.0); Puncture Site RRA
--- NOTE | 2020-12-06 14:59 | RAD ---
PORTABLE CHEST: 12/06/20 INDICATIONS: Hypoxia and shortness of breath. COMPARISON: 12/04/20. FINDINGS/IMPRESSION: Cardiomegaly. Bilateral infiltrates and bilateral effusions. Not significantly changed from 12/04/20. POS: AGW
[2020-12-06] MEDS ORDERED: Furosemide 100 MG/10 ML VIAL SLOW IVP SCH (15:00)
--- NOTE | 2020-12-06 15:43 | PDOC.BPN ---
- Brief Progress Note Nurse called to inform me of new onset hypoxia. She had maxed out his NC and O2 sats were low 80s. She then used venti mask and once again maxed out with O2 sat around 85%. I evaluated patient and noted that he had very little increased work of breathing but he was satting around 85% and would decrease with talking. Stat CXR was done. It was stable from 2 days prior but continues to show some b/l pleural effusion and infiltrates. Respiratory therapy was called and they started high flow nasal cannula. Increased to 60L, FiO2 60% and pulse ox still showing 85%. ABG done and results showed pH 7.48, pCO 42, pO2 54. Dr. Mcmanus was called and decision was made to diurese with 80mg IV lasix and reassess resp status. Will consider starting bipap if no improvement. I called and spoke to his son, KWAME, to discuss goals of care and he re-affirmed that he is DNAR and would like to try all therapies up to the point of intubation.
[2020-12-06] MEDS: Spironolactone 25 MG TAB PO SCH (16:28)
--- NOTE | 2020-12-06 21:49 | PDOC.EVN ---
Event Note - Event Note Event Note: nursing notified me that the patient was desating on HFNC. After increasing HFNC, patient was back to 100%. requesting to be moved to IMCU in case he needs BiPAP. When i went into the room patient had pulled off his HFNC and was 85% on RA. Will move to IMCU. Soft restraints initiated to keep him from removing his supplemental oxygen. Family notified.
[2020-12-07 04:46] LABS: Band 2 % (5-11); Eosinophils 2 % (0-10); Hemoglobin 8.9 g/dL (14.0-18.0); Hypochromia SLIGHT = 6-15 cells (100X) (0-5/hpf); Lymphocytes 8 % (21-51); MDiff Complete? YES; Mean Corpuscular HGB CONC 30.1 g/dL (32.0-36.0); Mean Corpuscular Hemoglobin 25.3 pg (27.0-31.0); Mean Corpuscular Volume 84.2 fL (78.0-98.0); Neutrophil 88 % (42-75); Platelet Count 278 thou/uL (130-400); Platelet Morphology Comment Appears Decreased; RBC Distribution Width 17.2 % (11.5-14.5); Red Blood Cell (RBC) Count 3.52 mill/uL (4.70-6.10); Target Cells SLIGHT = 2-5 cells (100X) (0-1/hpf); White Blood Cell (WBC) Count 13.1 thou/uL (4.8-10.8)
[2020-12-07] MEDS: Ampicillin/Sulbactam 1.5 GM in Sodium Chloride 0.9% 100 ML IVPB SCH ×2 (04:50→08:38)
[2020-12-07] MEDS: Diltiazem 125 MG in Sodium Chloride 0.9% 100 ML IVPB SCH (04:50)
[2020-12-07 04:51] LABS: Anion Gap 17 mmol/L (10-20); BUN (Urea Nitrogen) 20 mg/dL (8.4-25.7); Calc. Creatinine Clearance 48 mL/min (70-130); Carbon Dioxide 28 mmol/L (23-31); Chloride 103 mmol/L (98-107); Glucose 106 mg/dL (83-110); Potassium 4.2 mmol/L (3.5-5.1); Sodium 144 mmol/L (136-145)
--- NOTE | 2020-12-07 05:59 | PDOC.FM ---
- Subjective Subjective: Overnight pt was moved to IMCU room due to difficulty maintaining oxygen saturation on HFNC. Pt was placed in soft restraints because he kept taking off his HFNC and would quickly desat. This morning he is awake and is asking about breakfast. When he tries to talk, his O2 sat drops from 90 to 85%. - Objective Vital Signs & Weight: Vital Signs (12 hours) Temp Pulse Resp BP Pulse Ox 12/07/20 04:00 98.4 F 106 H 20 96/76 95 12/07/20 02:00 98.7 F 100 18 98/68 95 12/07/20 00:00 98.6 F 96 18 108/69 95 12/06/20 22:50 98.7 F 93 18 99/75 94 L 12/06/20 20:00 97 12/06/20 19:46 98.2 F 92 18 102/66 100 Weight Weight 74.162 kg I&O: 12/05/20 12/06/20 12/07/20 06:59 06:59 06:59 Intake Total 1230 798 Output Total 1600 650 Balance -370 148 Result Diagrams: 12/07/20 04:12 12/07/20 04:12 Phys Exam - Physical Examination mildly increased work of breathing, using accessory muscles but overall looks comfortable HEENT: sclera anicteric Neck: supple crackles heard bilaterally tachycardic, irregular rhythm Gastrointestinal: soft, no distention 2+ pitting edema RLE Neurological: non-focal Dx/Plan - Plan Plan: 1. Acute Hypoxic Respiratory Failure - likely 2/2 to Fluid overload vs PNA - pt has known risk of aspiration w/ feeds, family has chosen "eat with [place]" [place] and [place] - currently on HFNC 55L FiO2 77%, O2 sat 88-92%, desats with minimal activity - repeat CXR on 12/06 showed no significant change from 12/04 - s/p 80 IV lasix yesterday - cards consulted, Dr Quintero: added spironolactone, states pt has a hx of diastolic heart failure - on antibiotics for possible PNA, initial and repeat COVID test negative, RVP negative - Echo: EF 45-50%, mild hypertrophy - Patient is a DNR-DNI - spoke to patient's son yesterday and he re-affirmed pt's wishes to be DNAR. He would like to try everything up to the point of intubation 2. Atrial Fibrillation RVR -currently rate controlled on dilt gtt at 12.5mg/hr, was decreased overnight due to low BP8 80s/60s -patient has known history of Afib on xarelto, metoprolol, amiodarone -patient was restarted on home metoprolol and amiodarone and remained in RVR, patient's home metoprolol was increased to 50 -cardiology consulted: appreciate recs 3. Possible Viral vs. Atypical PNA vs. Aspiration PNA -initial Chest Xray concerning for PNA -initial and repeat COVID neg, RVP negative -Procal: 0.06 > 0.06 -CRP 9.78 -will continue azithromycin (2) and Unasyn (12/02) -patient failed speech eval but both patient and son have chosen to "eat with risks" 4. RLE edema -could be 2/2 to poor CO due to RVR -diuretics as above -ECHO in 12/2018 showed EF of 60-65% -per Dr Quintero pt has hx of diastolic heart failure, pending echo 5. Mechanical Falls -patient has hx of orthostatic hypotension and admissions due to falls 2/2 afib RVR -believe that patient's falls were 2/2 to mechanical causes 6. Normocytic Anemia -Hgb noted to be 10.2, stable -iron: 9, TIBC: 265, % sat: 3 -BID ferrous sulfate ordered 7. Hypokalemia -resolved, K 3.8 -likely due to diuretics -will replace and continue to monitor 8. Subclinical Hypothyroidism -TSH 10.4, Free T4 normal -aware, no txt indicated 9. Urinary retention -home med flomax -will place laughlin and monitor I/Os PCP: Gary ([place]) Diet: HH, feed w/ risks IVF: SL Dispo: Guarded, continue to monitor resp status, currently on HFNC, discussion of bipap if worsens. Currently in afib with rate 100s-130s on dilt gtt @ 12.5mg/hr. Cardiology consulted, appreciate recs Addendum - Attending - Attending Attestation Date/Time: 12/07/20 9441 I personally evaluated the patient and discussed the management with Dr. Montanez. I agree with the History, Examination, Assessment and Plan documented above with any addition or exceptions noted below.
[2020-12-07] MEDS ORDERED: Senokot 8.6 MG TAB PO SCH (06:00)
[2020-12-07] MEDS: Amiodarone 200 MG TAB PO SCH (08:36)
[2020-12-07] MEDS: Azithromycin 250 MG TAB PO SCH (08:36)
[2020-12-07] MEDS: Rivaroxaban 10 MG TAB PO SCH (08:37)
[2020-12-07] MEDS: Ferrous Sulfate 325 MG TAB PO SCH (08:37)
[2020-12-07] MEDS: Spironolactone 25 MG TAB PO SCH (08:37)
[2020-12-07] MEDS: Tamsulosin HCl 0.4 MG CAP PO SCH (08:37)
[2020-12-07] MEDS: Cholecalciferol 1,000 UNITS (25 MCG) TAB PO SCH (08:37)
[2020-12-07] MEDS: Ascorbic Acid 500 mg Chewable Tablet PO SCH (08:40)
[2020-12-07] MEDS ORDERED: Polyethylene Glycol 3350 17 GM Packet PO SCH (09:00)
[2020-12-07] MEDS ORDERED: Furosemide 40 MG/4 ML VIAL SLOW IVP SCH ×2 (09:00→18:00)
--- NOTE | 2020-12-07 09:34 | PRG ---
DATE OF SERVICE: 12/07/2020 SUBJECTIVE: Mr. Peterson looks weak and somewhat fatigued today. He is not having any chest pain. Denies shortness of breath. OBJECTIVE: VITAL SIGNS: Blood pressure is 107/82, pulse is 100 to 110, it is atrial fibrillation LUNGS: Clear anteriorly and laterally, but he has a few rhonchi. No wheezing. CARDIAC: Irregularly irregular. ABDOMEN: Soft, nontender. EXTREMITIES: There is severe edema really throughout his body even laterally in his chest area and his thighs are extremely edematous. ASSESSMENT: 1. Congestive heart failure, systolic and diastolic combined, predominantly diastolic, extremely volume overloaded. 2. Atrial fibrillation with hard to control ventricular rate. PLAN: 1. Increase diuretic therapy. 2. Transition to oral diltiazem. 3. he also has a very poor swallowing mechanism concerned about aspiration. The patient has been encouraged to have certain techniques to try to reduce the risk of aspiration. The prognosis appears poor in this gentleman. Job ID: [id number]
[2020-12-07 11:51] VITALS: TEMP 97.8
[2020-12-07 13:37] VITALS: BP 98/78
[2020-12-07] MEDS ORDERED: Scopolamine 1.5 mg/72 hour Patch TOP SCH (15:30)
[2020-12-07] MEDS ORDERED: Potassium Chloride 20 MEQ TAB PO SCH (16:00)
[2020-12-07] MEDS ORDERED: Morphine 4 MG/ML VIAL SLOW IVP SCH (16:00)
[2020-12-07] MEDS ORDERED: Lorazepam 2 MG/ML VIAL SLOW IVP SCH (17:00)
[2020-12-07] MEDS ORDERED: Furosemide 20 MG/2 ML VIAL SLOW IVP SCH (18:00)
[2020-12-08] MEDS ORDERED: Furosemide 40 MG/4 ML VIAL SLOW IVP SCH (06:00)
--- NOTE | 2020-12-08 15:36 | DIS ---
DATE OF ADMISSION: 12/01/2020 DATE OF DISCHARGE: 12/07/2020 RESIDENT: Terrie Montanez, PGY-1. ADMITTING ATTENDING: Reza Mcmanus MD DISCHARGE ATTENDING: Reza Mcmanus MD CONSULTS: Cardiology. PROCEDURES: None. PRIMARY DIAGNOSIS: Acute hypoxic respiratory failure secondary to fluid overload. SECONDARY DIAGNOSES: 1. Atrial fibrillation, rapid ventricular response. 2. Heart failure, reduced ejection fraction. 3. Normocytic anemia. 4. Hypokalemia. 5. Right lower extremity edema. 6. Subclinical hypothyroidism. 7. Urinary retention. 8. Possible pneumonia. DISCHARGE MEDICATIONS: None. HISTORY OF PRESENT ILLNESS: The patient was admitted to the hospital on 12/01/2020 from [facility] after he had 2 falls. He had some chest pain, shortness of breath, and dizziness. The patient had known history of swallowing difficulties, but the patient's family had made the decision to feed with risks. It was thought the patient was possibly suffering from aspiration pneumonia. He was treated with broad-spectrum antibiotics and also diuretics for component of CHF exacerbation. Throughout his stay, his clinical picture continued to decline. Cardiology saw the patient for help with managing atrial fibrillation with RVR. The patient had been on diltiazem drip for most of hospital stay and the patient only had brief resolution of RVR. On December 07, I met with patient's son at bedside to discuss goals of care. We discussed overall clinical picture including lab values, imaging, and input from specialist. His father was at the point of wearing high-flow nasal cannula and was requiring soft restraints due to his delirium and wanting to pull off high-flow nasal cannula. When he did pull it off, he immediately desaturated into the 70s and also when he was wearing the high-flow, he will desaturate just with talking. His son was medical power of feller operator and he made the decision along with other family members to transition his father to hospice. Hospice palliative care team met with patient and hospice was initiated. DISPOSITION: Guarded. DISCHARGE INSTRUCTIONS: Discharged to hospice. Job ID: [id number] [id number]
== END 2020-12-07 15:19 | disposition hospice, inpatient (51) | DRG 177 ==
LOC: ERS 20:24 → ERHOLD 22:25 → 2NO 12-02 14:20 → 2SE 12-06 22:47
PROVIDERS: ADMIT Student in an Organized Health Care Education/Training Program; ATTEND Family Medicine
DX: J69.0 Pneumonitis due to inhalation of food and vomit (principal); J96.01 Acute respiratory failure with hypoxia; I50.30 Unspecified diastolic (congestive) heart failure; I48.0 Paroxysmal atrial fibrillation; Z66 Do not resuscitate; R29.6 Repeated falls; E78.5 Hyperlipidemia, unspecified; F03.90 Unspecified dementia, unspecified severity, without behavioral disturbance, psychotic disturbance, mood disturbance, and anxiety; K21.9 Gastro-esophageal reflux disease without esophagitis; N40.0 Benign prostatic hyperplasia without lower urinary tract symptoms; K46.9 Unspecified abdominal hernia without obstruction or gangrene; I95.1 Orthostatic hypotension; R33.9 Retention of urine, unspecified; Z20.822 Contact with and (suspected) exposure to COVID-19; I11.0 Hypertensive heart disease with heart failure; E02 Subclinical iodine-deficiency hypothyroidism; E87.6 Hypokalemia; D64.9 Anemia, unspecified; Z89.512 Acquired absence of left leg below knee; Z90.49 Acquired absence of other specified parts of digestive tract
CPT/HCPCS: 0240U; 36415; 36600; 71045; 80048; 81001; 82607; 82728; 82747; 82805; 83540; 83550; 83735; 83880; 84100; 84145; 84439; 84443; 84484; 85014; 85025; 86140; 87040; 87633; 87635; 93005; 93306; 96365; 96366; 96367; 96376; J0295; J0456; J0696; J1940; J3475; J3490; U0003; U0005

== ENCOUNTER 2020-12-07 15:35 | Inpatient (IN) | payer OTHER ==
[2020-12-07] MEDS ORDERED: Scopolamine 1.5 mg/72 hour Patch TOP SCH (17:00)
[2020-12-07] MEDS ORDERED: Lorazepam 2 MG/ML VIAL SLOW IVP SCH (17:00)
[2020-12-07] MEDS ORDERED: Morphine 4 MG/ML VIAL SLOW IVP SCH (18:00)
== END 2020-12-07 18:32 | disposition expired | DRG 951 ==
LOC: 2SE 15:35
PROVIDERS: ADMIT Student in an Organized Health Care Education/Training Program; ATTEND Student in an Organized Health Care Education/Training Program
DX: Z51.5 Encounter for palliative care (principal); Z66 Do not resuscitate; I48.91 Unspecified atrial fibrillation; K21.9 Gastro-esophageal reflux disease without esophagitis; I10 Essential (primary) hypertension; D64.9 Anemia, unspecified; E78.5 Hyperlipidemia, unspecified; N40.0 Benign prostatic hyperplasia without lower urinary tract symptoms; Z79.899 Other long term (current) drug therapy; Z79.01 Long term (current) use of anticoagulants; Z90.49 Acquired absence of other specified parts of digestive tract; Z89.512 Acquired absence of left leg below knee